=== PATIENT | female | born 1950 | race Caucasian/White ===

== ENCOUNTER 2017-08-07 03:36 | Emergency (ER) | payer MEDICARE, MEDICAID ==
[2017-08-07 04:28] LABS: CKMB 1.6 ng/mL (0-6.6); Troponin I 0.055 ng/mL (< 0.028)
== END 2017-08-07 05:25 | disposition home or self-care (01) ==
LOC: ERS 03:36
DX: I95.9 Hypotension, unspecified (principal); M06.9 Rheumatoid arthritis, unspecified; F41.9 Anxiety disorder, unspecified; F32.9 Major depressive disorder, single episode, unspecified; I10 Essential (primary) hypertension; M19.90 Unspecified osteoarthritis, unspecified site; F17.210 Nicotine dependence, cigarettes, uncomplicated; Z71.6 Tobacco abuse counseling; Z79.899 Other long term (current) drug therapy
CPT/HCPCS: 36415; 93005; 99406

== ENCOUNTER 2018-04-22 17:40 | Emergency (ER) | payer MEDICARE, OTHER ==
[2018-04-22 18:25] LABS: #Eosinphils 0.1 thou/uL (0.0-0.7); #Lymphocytes 0.9 thou/uL (1.20-3.40); #Monocytes 0.3 thou/uL (0.11-0.59); #Neutrophils 3.4 thou/uL (1.40-6.50); %Basophils 0.6 % (0.0-1.0); %Eosinophils 2.7 % (0.0-10.0); %Lymphocytes 18.5 % (21.0-51.0); %Monocytes 7.2 % (0.0-10.0); %Neutrophils 71.1 % (42.0-75.0); Mean Corpuscular HGB CONC 32.9 g/dL (32.0-36.0); Mean Corpuscular Hemoglobin 30.8 pg (27.0-31.0); Mean Corpuscular Volume 93.4 fL (78.0-98.0); Mean Platelet Volume 7.9 fL (7.4-10.4); Platelet Count 174 thou/uL (130-400); RBC Distribution Width 17.2 % (11.5-14.5); Red Blood Cell (RBC) Count 3.56 mill/uL (4.20-5.40); White Blood Cell (WBC) Count 4.7 thou/uL (4.8-10.8)
--- NOTE | 2018-04-22 18:44 | RAD ---
PORTABLE CHEST: 04/22/2018 PROVIDED CLINICAL HISTORY: Cough. COMPARISON: 04/22/2018 at 9:43 a.m. FINDINGS: The cardiac and mediastinal silhouette are unchanged in appearance. No focal consolidation, pleural fluid, or pneumothorax apparent. Remote right humeral fracture redemonstrated. IMPRESSION: No evidence for acute cardiopulmonary process. POS: LULI
[2018-04-22 18:48] LABS: ALT (SGPT) 8 U/L (8-55); AST (SGOT) 15 U/L (5-34); Albumin 3.2 g/dL (3.4-4.8); Alkaline Phosphatase 429 U/L (40-150); Anion Gap 14 mmol/L (10-20); BUN (Urea Nitrogen) 18 mg/dL (9.8-20.1); Bilirubin, Total 0.9 mg/dL (0.2-1.2); Calc. Creatinine Clearance 0 mL/min (70-130); Calcium 8.8 mg/dL (7.8-10.44); Carbon Dioxide 26 mmol/L (23-31); Chloride 105 mmol/L (98-107); Estimated GFR-MDRD 69; Globulin 3.1 g/dL (2.4-3.5); Glucose 97 mg/dL (80-115); Potassium 3.7 mmol/L (3.5-5.1); Protein, Total 6.3 g/dL (6.0-8.3); Sodium 141 mmol/L (136-145)
== END 2018-04-22 18:41 ==
LOC: ERS 17:40
DX: R05 Cough (principal); E16.2 Hypoglycemia, unspecified; I10 Essential (primary) hypertension; F41.9 Anxiety disorder, unspecified; F32.9 Major depressive disorder, single episode, unspecified; F17.210 Nicotine dependence, cigarettes, uncomplicated
CPT/HCPCS: 36415; 71045; 93005

== ENCOUNTER 2018-07-04 08:24 | Inpatient (IN) | payer MEDICARE, OTHER ==
[2018-07-04 08:59] LABS: #Lymphocytes 0.6 thou/uL (1.20-3.40); #Monocytes 0.2 thou/uL (0.11-0.59); #Neutrophils 5.4 thou/uL (1.40-6.50); %Eosinophils 0.3 % (0.0-10.0); %Monocytes 3.5 % (0.0-10.0); %Neutrophils 87.1 % (42.0-75.0); Hemoglobin 13.3 g/dL (12.0-16.0); Mean Corpuscular HGB CONC 31.4 g/dL (32.0-36.0); Mean Corpuscular Hemoglobin 31.6 pg (27.0-31.0); Mean Platelet Volume 8.7 fL (7.4-10.4); Platelet Count 148 thou/uL (130-400); RBC Distribution Width 13.4 % (11.5-14.5); White Blood Cell (WBC) Count 6.2 thou/uL (4.8-10.8)
--- NOTE | 2018-07-04 09:16 | RAD ---
CHEST 1 VIEW: Date: 07/04/18 INDICATION: Weakness. Difficulty breathing. History of COPD. COMPARISON: Prior exam dated 04/22/18. FINDINGS: There is postprocedural change of an aortic valve replacement. There is stable cardiomegaly. There is mild pulmonary vascular congestion and perihilar interstitial air space opacities. No pleural effusi on or pneumothorax evident. No acute osseous abnormality. IMPRESSION: Findings suggesting mild CHF. Perihilar opacities could be related to an atypical infectious process. Recommend correlation. Radiographic follow-up is recommended. POS: ALFREDO
[2018-07-04 09:27] LABS: ALT (SGPT) 25 U/L (8-55); AST (SGOT) 35 U/L (5-34); Albumin 4.1 g/dL (3.4-4.8); Alkaline Phosphatase 778 U/L (40-150); Anion Gap 16 mmol/L (10-20); BUN (Urea Nitrogen) 21 mg/dL (9.8-20.1); Bilirubin, Total 0.7 mg/dL (0.2-1.2); Calc. Creatinine Clearance 0 mL/min (70-130); Calcium 9.4 mg/dL (7.8-10.44); Carbon Dioxide 29 mmol/L (23-31); Chloride 102 mmol/L (98-107); Estimated GFR-MDRD 72; Globulin 3.9 g/dL (2.4-3.5); Glucose 117 mg/dL (80-115); Potassium 3.9 mmol/L (3.5-5.1); Sodium 143 mmol/L (136-145)
[2018-07-04 09:29] LABS: Bilirubin Negative (Negative); Blood, Urine Negative (Negative); Clarity CLEAR (Clear); Glucose, Urine (Dipstick) Negative (Negative); Leukocyte Negative (Negative); Nitrite Negative (Negative); Protein, Urine (Dipstick) 30 mg/dL (Neg-Trace); Specific Gravity, Urine 1.017 (1.002-1.036); pH, Urine 5.5 (5.0-9.0)
[2018-07-04 09:32] LABS: Bacteria/HPF None Seen HPF (None Seen); Hyaline Casts/LPF 4-6 HYALINE CAST LPF (0-3 Hyaline); Pathc Cast-AUWi Flag 1.08 (0-2.49); RBC/HPF 0-3 HPF (0-3); Squamous Epithelial 0-3 HPF (0-3); WBC/HPF 0-3 HPF (0-3)
[2018-07-04] MEDS ORDERED: Acetaminophen 325 MG Suppository ONE (09:46)
[2018-07-04] MEDS ORDERED: Piperacillin/Tazobactam 3.375 GM VIAL ONE (10:08)
--- NOTE | 2018-07-04 10:28 | PDOC.FPRHP ---
- History of Present Illness Chief Complaint: COPD/AMS History of Present Illness: 67 yo female presents for evaluation of AMS. Patient is awake and alert at this time. Patient is A&O x3, but requires multiple attempts at questioning. Patient was sent from [facility] due to dyspnea and AMS. I personally spoke with her nurse at [facility]. She stated that yesterday she began having a fever and cough. She was able to ambulate and "smoke" every 2 hours all day long. Patient did not want to go to the ED yesterday. However, this morning she was on 2-3L O2 which is above her baseline of no supplemental O2. Patient's PCP contacted and he offered limited history in addition. He states that she recently asked for additional benadryl on top of her chronic pain medications. He states that she has severe COPD at baseline. No other history is able to be obtained at this time. ED Course: Duoneb Vanc Zosyn Levaquin Tylenol - Allergies/Adverse Reactions Allergies Allergy/AdvReac Type Severity Reaction Status Date / Time Sulfa (Sulfonamide Allergy Verified 09/23/16 13:03 Antibiotics) - Home Medications Medication Instructions Recorded Confirmed Type tiZANidine HCl [Zanaflex] 4 mg PO BID 04/12/16 07/04/18 History Albuterol Sulfate [Proair 1 inh Q4H 11/30/17 07/04/18 History Respiclick] Ipratropium/Albuterol Sulfate 1 inh Q4H PRN 11/30/17 07/04/18 History [DuoNeb] Lisinopril 10 mg DAILY 11/30/17 07/04/18 History Pregabalin [Lyrica] 1 cap TID 11/30/17 07/04/18 History Ranitidine HCl 1 tab DAILY 11/30/17 07/04/18 History Tiotropium [Spiriva Handihaler] 1 inh DAILY 11/30/17 07/04/18 History traZODone HCl [Trazodone HCl] 1 tab HS 11/30/17 07/04/18 History Acetaminophen W/ Codeine 1 tab PO Q8H PRN tab 12/03/17 07/04/18 Rx [Acetaminophen/Codeine #3] Escitalopram Oxalate [Lexapro] 20 mg DAILY 07/04/18 07/04/18 History Comments: Will need to be completed when NH contacted. - History PMHx: Chronic Back Pain, HTN, Rheumatoid Arthritis, COPD, Anxiety Depression PSHx: Left knee Arthroscopic, 2014 Heart Valve Replacement, CABG x1 vessel, Hysterectomy FHx: Non-Contributory Social: Current smoker at least 30 pack year smoking history, Denies alcohol or drug use. - Review of Systems ROS unobtainable: due to mental status (Questionable historian) General: reports: fever/chills Eyes: denies: eye pain, vision changes ENT: denies: nasal congestion, rhinorrhea Respiratory: reports: cough. denies: shortness of breath Cardiovascular: denies: chest pain, palpitation Gastrointestinal: denies: nausea, vomiting, diarrhea Genitourinary: denies: incontinence, dysuria Skin: denies: rashes, lesions Musculoskeletal: reports: arthritis/arthralgias. denies: pain, tenderness Neurological: denies: numbness, syncope Psychological: reports: anxiety, depression - Vital signs BP: 147/71 HR: 112 RR: 21 Tmax: 102.2 Pox: 100% on 3L Wt: 45.4 kg - Physical Exam Constitutional: NAD -Constitutional: Awake, Alert, and Oriented x2-3 with multiple inquiries HEENT: normocephalic and atraumatic, PERRLA, grossly normal vision, grossly normal hearing, normal nasal mucosa -HEENT: Dry mucous membranes Neck: supple, trachea midline Heart: RRR, normal S1/S2 Lungs: no retractions -Lungs: Tachypnea, Rales and Rhonchi bilaterally. Wheezing present as well. Abdomen: soft, non-tender, bowel sounds present, no masses/distention -Musculoskeletal: Cachetic Neurological: no focal deficit, CN II-XII intact, normal sensation Skin: no rash/lesions, capillary refill <2 seconds Heme/Lymphatic: no unusual bruising or bleeding Psychiatric: normal mood and affect, good judgment and insight, intact recent and remote memory FMR H&P: Results - Labs Result Diagrams: 07/04/18 08:46 07/04/18 08:46 Lab results: WBC 6.2 thou/uL (4.8-10.8) 07/04/18 08:46 Hgb 13.3 g/dL (12.0-16.0) 07/04/18 08:46 Hct 42.2 % (36.0-47.0) 07/04/18 08:46 MCV 101.0 fL (78.0-98.0) H 07/04/18 08:46 Plt Count 148 thou/uL (130-400) 07/04/18 08:46 Neutrophils % 87.1 % (42.0-75.0) H 07/04/18 08:46 Sodium 143 mmol/L (136-145) 07/04/18 08:46 Potassium 3.9 mmol/L (3.5-5.1) 07/04/18 08:46 Chloride 102 mmol/L (98-107) 07/04/18 08:46 Carbon Dioxide 29 mmol/L (23-31) 07/04/18 08:46 BUN 21 mg/dL (9.8-20.1) H 07/04/18 08:46 Creatinine 0.79 mg/dL (0.6-1.1) 07/04/18 08:46 Glucose 117 mg/dL (80-115) H 07/04/18 08:46 Lactic Acid 1.0 mmol/L (0.5-2.2) 07/04/18 08:46 Calcium 9.4 mg/dL (7.8-10.44) 07/04/18 08:46 Total Bilirubin 0.7 mg/dL (0.2-1.2) 07/04/18 08:46 AST 35 U/L (5-34) H 07/04/18 08:46 ALT 25 U/L (8-55) 07/04/18 08:46 Alkaline Phosphatase 778 U/L (40-150) H 07/04/18 08:46 Serum Total Protein 8.0 g/dL (6.0-8.3) 07/04/18 08:46 Albumin 4.1 g/dL (3.4-4.8) 07/04/18 08:46 Urine Ketones 15 mg/dL (Negative) H 07/04/18 09:13 Urine Blood Negative (Negative) 07/04/18 09:13 Urine Nitrite Negative (Negative) 07/04/18 09:13 Ur Leukocyte Esterase Negative (Negative) 07/04/18 09:13 Urine RBC 0-3 HPF (0-3) 03/21/19 09:13 Urine WBC 0-3 HPF (0-3) 07/04/18 09:13 Ur Squamous Epith Cells 0-3 HPF (0-3) 07/04/18 09:13 Urine Bacteria None Seen HPF (None Seen) 07/04/18 09:13 - EKG Interpretation EK lead EKG shows, sinus tachycardia, Rate (beats per minute): 113, with no ectopics, Interpretation:, Conduction normal, [place] normal, Other findings include:, Possible LAE. Nonspecific ST & T wave abnormality. - Radiology Interpretation Chest x-ray Status: report reviewed by me (Findings suggesting mild CHF. Perihilar opacities could be related to an atypical infectious process. Recommend correlation. Radiographic follow-up is recommended.) FMR H&P: A/P - Problem List (1) Acute respiratory failure with hypoxia and hypercapnia Current Visit: Yes Status: Acute Code(s): J96.01 - ACUTE RESPIRATORY FAILURE WITH HYPOXIA; J96.02 - ACUTE RESPIRATORY FAILURE WITH HYPERCAPNIA (2) Encephalopathy Current Visit: Yes Status: Acute Code(s): G93.40 - ENCEPHALOPATHY, UNSPECIFIED (3) Congestive heart failure Current Visit: Yes Status: Chronic Code(s): I50.9 - HEART FAILURE, UNSPECIFIED (4) COPD (chronic obstructive pulmonary disease) Current Visit: Yes Status: Acute (5) Bipolar disorder Current Visit: No Status: Chronic Code(s): F31.9 - BIPOLAR DISORDER, UNSPECIFIED Qualifiers: Most recent bipolar episode type: most recent episode unspecified type Comment: stable (6) History of coronary artery bypass graft x 1 Current Visit: No Status: Chronic Code(s): Z95.1 - PRESENCE OF AORTOCORONARY BYPASS GRAFT Comment: s/p CABG 08/28 (7) HTN (hypertension) Current Visit: No Status: Chronic Code(s): I10 - ESSENTIAL (PRIMARY) HYPERTENSION Qualifiers: Hypertension type: essential hypertension Qualified Code(s): I10 - Essential (primary) hypertension Comment: BP better - Plan 1. Encephalopathy with Acute Hypoxic Respiratory failure - Likely secondary to COPD vs CHF exacerbation 2. CHF exacerbation - XR evidence and elevated BNP - Consider IV lasix - Strict I&Os - Daily weights - Will place andjuar 2. COPD Exacerbation - Supplemental O2 as needed through BIPAP, will send to IMCU - Influenza Negative - Duonebs - ABG shows ph 7.24, PCO2 72, PO2 85, HCO3 30 - Continue antibiotic coverage 3. Hypertension - Hold home medications for now 4. Bipolar disorder - Continue home medications. Patient was seen and evaluated with Dr. Claude Malone. CODE STATUS: FULL CODE Patient has one son that currently lives internationally. Attempted to call multiple numbers multiple times. Numbers included [phone], [phone], and [phone]. Patient has OOH DNR from [facility] facility and verbally states she does not want to be intubated. However, due to current mental status will make patient full code until further information is gathered. PCP: Dr. Harding Disposition: Stable, will continue current plan of care. Addendum - Attending - Attending Attestation Date/Time: 07/04/18 [id number] I personally evaluated the patient and discussed the management with Dr. Saleh. I agree with the History, Examination, Assessment and Plan documented above with any addition or exceptions noted below. Patient with history of COPD living at [facility] coming in with fever, increased O2 requirement, and confusion. She has limited answers to my questioning other than reporting feeling bad over the last few weeks. She reports difficulty breathing during this time but otherwise denies complaints. Remainder of history obtained from PCP and NH (see Dr. Saleh HPI). On exam, she is dry appearing, having mild respiratory distress. She is A&Ox2.5, has some difficulty with date but knew it was early spring and thought it was July. She is also aware of where she was prior to presenting to the ER. She is mildly tachycardic. O2 sats mid 90s. Her lung exam shows minimal air entry with diffuse rhonchi and wheezes b/l. No cyanosis or edema in the extremities. Labs show elevated BNP, normal PCT. CXR show possible volume overload. Patient will be admitted to the IMCU for acute hypoxic and hypercapnic respiratory failure with suspected sepsis 2/2 COPD exacerbation or pneumonia and possible CHF with volume overload. Will complete workup that was started by ER. Start on Bipap. Continue respiratory pathogen targeted abx and cultures. She does appear dry on exam, but CHF is certainly also a concern. Due to lack of extravascular fluid accumulations signs, I suggest volume resuscitation and monitor closely. CC/ Pulm consult. Continue nebs and steriods as needed. 45 minutes critical care involved in the management and stabilization of patient.
[2018-07-04 11:45] LABS: Actual Bicarbonate (HCO3a) 30.1 mEq/L (22-28); Analyzer IN Cardio ER; Base Excess (BEa) 1.1 mEq/L (-2.0 to +3.0); Calcium, Ionized 1.19 mmol/L (1.12-1.30); Carboxyhemoglobin (COHb) 1.7 gm% (0.0-3.0); Hemoglobin (Hb) 12.2 g/dL (12.0-16.0); O2 Tension (PaO2) 84.7 mmHg (> 80.0); Potassium - ABG Lab 3.32 mmol/L (3.70-5.30)
[2018-07-04] MEDS ORDERED: Vancomycin HCl 750 MG in Sodium Chloride 0.9% 250 ML 250 ML IVPB SCH (12:15)
[2018-07-04 13:59] LABS: CO2 Tension 71.9 mmHg (35.0-45.0); pH, Arterial 7.24 (7.35-7.45)
[2018-07-04] MEDS ORDERED: Lactated Ringer's 500 ML IV SCH ×2 (15:15→16:30)
[2018-07-04 16:28] VITALS: BMI 21.2
[2018-07-04] MEDS ORDERED: methylPREDNISolone Sod Succ 40 MG VIAL IVP SCH (18:00)
[2018-07-04] MEDS: methylPREDNISolone Sod Succ 40 MG VIAL IVP SCH (18:19)
[2018-07-04] MEDS: Sodium Chloride 0.45% 1,000 ML IV SCH (18:26)
[2018-07-04] MEDS: Acetaminophen 325 MG TAB PO PRN (23:47)
[2018-07-05] MEDS: methylPREDNISolone Sod Succ 40 MG VIAL IVP SCH ×5 (00:32→23:10)
--- NOTE | 2018-07-05 00:42 | CON ---
DATE OF CONSULTATION: HISTORY OF PRESENT ILLNESS: Ms. Funk is a 67-year-old female who only recently moved in to [facility]. Dr. Harding just recently made contact with her. She reportedly has a history of advanced chronic obstructive pulmonary disease. She does have a 1-year-old [id number]-vvrshnih sx-jlw-qfjwqvrkfge status. Apparently, she became a little more somnolent. Dr. Harding tells me that they were trying to avoid using opiates as she was constantly asking for Tylenol No.3. She was given low doses of Benadryl, which is the impression that perhaps this was making her more somnolent. She continues to smoke. PAST MEDICAL HISTORY: 1. Remarkable for chronic pain for which she takes Tylenol No. 3 until recently. 2. History of rheumatoid arthritis. 3. History of hypertension. 4. History of advanced obstructive lung disease. 5. History of knee surgery. 6. History of heart valve replacement with bypass and hysterectomy. FAMILY HISTORY: Negative for lung disease in early age. SOCIAL HISTORY: She continues to smoke. She is not a drinker. REVIEW OF SYSTEMS: A 10-point review of systems really cannot be reliably obtained. She thinks she is in [place]. PHYSICAL EXAMINATION: VITAL SIGNS: Heart rate is 86, respiratory rate is in the 20s, oximetry is 93% on 1 L cannula. HEENT: Pupils are equal. Her mouth is dry. NECK: Supple. No lymphadenopathy. LUNGS: Remarkable for distant breath sounds with slightly prolonged expiratory phase. HEART: Regular rhythm, S1 and S2 are normal. ABDOMEN: Soft and nontender. EXTREMITIES: Without clubbing, cyanosis, or edema. NEUROLOGIC: Grossly nonfocal. She appears quite weak. LABORATORY DATA: White count 6.2, hemoglobin 13.3, platelets 148. PH 7.24, pCO2 of 71, pO2 of 84. Sodium 143, potassium 3.9, chloride 102, bicarb 29, BUN 21, creatinine 0.79. IMPRESSION: 1. Chronic obstructive pulmonary disease exacerbation. 2. Confusion, perhaps aggravated by Benadryl. PLAN: Steroids, nebulizer treatments, close observation. O2 sats should be between 88 and 92. There are no signs of respiratory muscle fatigue at this point in time, so there is no real reason to keep her on BiPAP. TIME SPENT: This is a 50-minute consult, 50% of the time spent on the unit coordinating care. Job ID: [id number]
[2018-07-05 05:26] LABS: #Lymphocytes 0.4 thou/uL (1.20-3.40); #Neutrophils 3.5 thou/uL (1.40-6.50); %Eosinophils 0.2 % (0.0-10.0); %Lymphocytes 11.2 % (21.0-51.0); %Monocytes 0.9 % (0.0-10.0); %Neutrophils 87.7 % (42.0-75.0); Hemoglobin 11.6 g/dL (12.0-16.0); Mean Corpuscular HGB CONC 32.3 g/dL (32.0-36.0); Mean Corpuscular Hemoglobin 31.9 pg (27.0-31.0); Mean Corpuscular Volume 98.8 fL (78.0-98.0); Mean Platelet Volume 9.1 fL (7.4-10.4); Platelet Count 135 thou/uL (130-400); RBC Distribution Width 13.1 % (11.5-14.5); Red Blood Cell (RBC) Count 3.63 mill/uL (4.20-5.40); White Blood Cell (WBC) Count 3.9 thou/uL (4.8-10.8)
--- NOTE | 2018-07-05 05:58 | PDOC.FM ---
- Subjective Subjective: 67 yo female seen at bedside this AM. Spoke with patient's PCP and there is concern for overuse of drugs. Patient continues to complain of intense back pain and a headache. She notes that she needs better pain control. Patient is much more alert and oriented today and is quick to respond. No other complaints. - Objective Vital Signs & Weight: Vital Signs (12 hours) Temp Pulse Resp Pulse Ox 07/05/18 04:00 99.3 F 07/05/18 02:20 82 20 94 L 07/05/18 00:00 98.6 F 07/04/18 22:21 82 21 H 94 L 07/04/18 20:00 93 L 07/04/18 19:34 99.6 F 07/04/18 18:20 86 23 H 93 L Weight Weight 47.6 kg Most Recent Monitor Data Heart Rate from ECG 82 NIBP 131/77 NIBP BP-Mean 95 Respiration from ECG 19 SpO2 93 I&O: 07/03/18 07/04/18 07/05/18 06:59 06:59 06:59 Output Total 300 Balance -300 Result Diagrams: 07/05/18 03:54 07/04/18 08:46 Phys Exam - Physical Examination Constitutional: NAD HEENT: moist MMs Neck: no nodes Rhonchi, wheezes diffusely Cardiovascular: RRR, no significant murmur Gastrointestinal: soft, non-tender, no distention, positive bowel sounds Musculoskeletal: no edema, pulses present Neurological: non-focal, normal sensation, moves all 4 limbs Lymphatic: no nodes Psychiatric: A&O x 3 Skin: no rash Dx/Plan (1) Acute respiratory failure with hypoxia and hypercapnia Code(s): J96.01 - ACUTE RESPIRATORY FAILURE WITH HYPOXIA; J96.02 - ACUTE RESPIRATORY FAILURE WITH HYPERCAPNIA Status: Acute (2) Encephalopathy Code(s): G93.40 - ENCEPHALOPATHY, UNSPECIFIED Status: Resolved (3) Congestive heart failure Code(s): I50.9 - HEART FAILURE, UNSPECIFIED Status: Chronic (4) COPD (chronic obstructive pulmonary disease) Status: Chronic (5) Bipolar disorder Code(s): F31.9 - BIPOLAR DISORDER, UNSPECIFIED Status: Chronic Qualifiers: Most recent bipolar episode type: most recent episode unspecified type (6) History of coronary artery bypass graft x 1 Code(s): Z95.1 - PRESENCE OF AORTOCORONARY BYPASS GRAFT Status: Chronic (7) HTN (hypertension) Code(s): I10 - ESSENTIAL (PRIMARY) HYPERTENSION Status: Chronic Qualifiers: Hypertension type: essential hypertension Qualified Code(s): I10 - Essential (primary) hypertension (8) Misuse of drugs Code(s): F19.99 - OTH PSYCHOACTIVE SUBSTANCE USE, UNSP W UNSP DISORDER Status : Acute - Plan Plan: 1. Encephalopathy with Acute Hypoxic Respiratory failure - Resolved - Likely secondary to COPD vs CHF exacerbation - After BIPAP therapy yesterday, AMS resolved - AM ABG much improved - Blood cultures pending 2. CHF exacerbation - XR evidence and elevated BNP - Consider IV lasix - Strict I&Os - Daily weights - Remove andujar 2. COPD Exacerbation - Supplemental O2 as needed through BIPAP initially - Much improved - Influenza Negative - Duonebs - ABG on admission shows ph 7.24, PCO2 72, PO2 85, HCO3 30 - repeat ABG pending this AM - Continue antibiotic coverage 3. Hypertension - Hold home medications for now 4. Bipolar disorder - Continue home medications. 5. Misuse of drugs - Continually requests more pain medications - Will start celebrex for relief - Patient will need outpatient follow up Disposition: Stable, will transfer to medical floor with possibility to transfer to [facility] facility. Addendum - Attending - Attending Attestation Date/Time: 07/05/18 7438 I personally evaluated the patient and discussed the management with Dr. Saleh I agree with the History, Examination, Assessment and Plan documented above with any addition or exceptions noted below. Encepalopathy-presumed from benadryl and hypersomnolence Acute hypercapneic resp failure- bipap for short time yesterday. Now ABG much improved. Severe COPD- mild hypoxia- wean o2 to keep sats >88-90% May transition to [facility].
[2018-07-05] MEDS: Acetaminophen 325 MG TAB PO PRN (06:35)
[2018-07-05] MEDS: Sodium Chloride 0.45% 1,000 ML IV SCH ×2 (06:35→20:19)
[2018-07-05 06:53] LABS: Actual Bicarbonate (HCO3a) 26.4 mEq/L (22-28); CO2 Tension 45.2 mmHg (35.0-45.0); Calcium, Ionized 1.16 mmol/L (1.12-1.30); Carboxyhemoglobin (COHb) 1.5 gm% (0.0-3.0); Hemoglobin (Hb) 11.9 g/dL (12.0-16.0); O2 Tension (PaO2) 60.9 mmHg (> 80.0); pH, Arterial 7.38 (7.35-7.45)
[2018-07-05 06:54] LABS: Puncture Site RBA
[2018-07-05] MEDS: CeleCOXIB 100 MG CAP PO SCH (09:38)
[2018-07-05] MEDS: Enoxaparin Sodium 30 MG/0.3 ML SYRINGE SC SCH (09:39)
--- NOTE | 2018-07-05 10:26 | PRG ---
DATE OF SERVICE: 07/05/2018 SUBJECTIVE: Ayleen Funk made through the night. She had another blood gas done this morning that shows that the hypoventilation has resolved. Her pH is 7.38, CO2 of 45, and PO2 of 60. OBJECTIVE: LUNGS: Distant. HEART: Regular rhythm. ABDOMEN: Soft. LABORATORY DATA: White count 3.9, hemoglobin 11.6, and platelets 135. Electrolytes are unremarkable. IMPRESSION: 1. Hypoventilation perhaps related to medication. 2. Elevated liver enzymes. 3. Elevated BNP, which certainly could be just from her right ventricle given her advanced chronic obstructive pulmonary disease. 4. Advanced chronic obstructive pulmonary disease. 5. Cachexia, malnutrition, and deconditioning. She had been transferred out of the intermediate care unit and gradually transitioned to p.o. medications and back to the snf perhaps Sunday or Sunday. Job ID: [id number]
[2018-07-05] MEDS ORDERED: Escitalopram Oxalate 20 mg Tablet PO SCH (13:00)
[2018-07-05] MEDS ORDERED: Famotidine 20 MG TAB PO SCH (13:00)
[2018-07-05] MEDS ORDERED: tiZANidine HCl 4 MG TAB PO SCH (13:15)
[2018-07-05] MEDS: PROVENTIL INHALER 6.7 G (200 INHALATIONS) INH SCH ×3 (15:00→22:18)
[2018-07-05] MEDS: Pregabalin 50 MG CAP PO SCH ×2 (17:03→20:17)
[2018-07-05] MEDS: Ondansetron ODT 4 MG TAB PO PRN ×2 (17:07→23:10)
[2018-07-05] MEDS ORDERED: Ipratropium Bromide 2.5 ml Neb NEB SCH (19:00)
[2018-07-05] MEDS: traZODone HCl 50 MG TAB PO SCH (20:19)
[2018-07-05] MEDS: tiZANidine HCl 4 MG TAB PO SCH (20:20)
[2018-07-06] MEDS: PROVENTIL INHALER 6.7 G (200 INHALATIONS) INH SCH ×6 (02:56→22:06)
[2018-07-06] MEDS: methylPREDNISolone Sod Succ 40 MG VIAL IVP SCH (05:42)
--- NOTE | 2018-07-06 06:25 | PDOC.FM ---
- Subjective Subjective: Pt denies feeling short of breath or any sx to me, however asked attending for more pain medication. Otherwise, no complaints. - Objective MAR Reviewed: Yes Vital Signs & Weight: Vital Signs (12 hours) Temp Pulse Resp BP Pulse Ox 07/06/18 04:00 97.8 F 92 16 120/69 90 L 07/06/18 02:57 84 16 07/06/18 00:00 97.8 F 71 16 91/55 L 90 L 07/05/18 22:19 80 16 07/05/18 20:20 91 L 07/05/18 19:41 98.2 F 74 16 165/68 H 91 L 07/05/18 19:18 84 20 Weight Weight 47.6 kg Most Recent Monitor Data Heart Rate from ECG 72 NIBP 171/78 NIBP BP-Mean 109 Respiration from ECG 19 SpO2 93 I&O: 07/04/18 07/05/18 07/06/18 06:59 06:59 06:59 Intake Total 990 Output Total 775 Balance 215 Result Diagrams: 07/05/18 03:54 07/04/18 08:46 Phys Exam - Physical Examination Constitutional: NAD Respiratory: wheezing present (throughout lung martino) crackles throughout lung martino Cardiovascular: RRR systolic murmur Gastrointestinal: soft, non-tender, no distention Musculoskeletal: no edema, pulses present Psychiatric: A&O x 3 Skin: no rash, cap refill <2 seconds Dx/Plan (1) Acute respiratory failure with hypoxia and hypercapnia Code(s): J96.01 - ACUTE RESPIRATORY FAILURE WITH HYPOXIA; J96.02 - ACUTE RESPIRATORY FAILURE WITH HYPERCAPNIA Status: Acute (2) COPD exacerbation Code(s): J44.1 - CHRONIC OBSTRUCTIVE PULMONARY DISEASE W (ACUTE) EXACERBATION Status: Acute (3) Acute exacerbation of CHF (congestive heart failure) Code(s): I50.9 - HEART FAILURE, UNSPECIFIED Status: Acute (4) Aortic stenosis Code(s): I35.0 - NONRHEUMATIC AORTIC (VALVE) STENOSIS Status: Chronic (5) Misuse of drugs Code(s): F19.99 - OTH PSYCHOACTIVE SUBSTANCE USE, UNSP W UNSP DISORDER Status : Acute (6) Encephalopathy Code(s): G93.40 - ENCEPHALOPATHY, UNSPECIFIED Status: Resolved (7) Bipolar disorder Code(s): F31.9 - BIPOLAR DISORDER, UNSPECIFIED Status: Chronic Qualifiers: Most recent bipolar episode type: most recent episode unspecified type (8) CAD (coronary artery disease) Code(s): I25.10 - ATHSCL HEART DISEASE OF [place] CORONARY ARTERY W/O ANG PCTRS Status: Chronic Qualifiers: Coronary Disease-Associated Artery/Lesion type: [place] artery [place] vs. transplanted heart: [place] heart Associated angina: without angina Qualified Code(s): I25.10 - Atherosclerotic heart disease of [place] coronary artery without angina pectoris (9) HTN (hypertension) Code(s): I10 - ESSENTIAL (PRIMARY) HYPERTENSION Status: Chronic Qualifiers: Hypertension type: essential hypertension Qualified Code(s): I10 - Essential (primary) hypertension - Plan Plan: 67 yo f admitted for encephalopathy though to be d/t acute hypoxic hypercapnic respiratory failure 2/2 COPD vs CHF exacerbation. 1. Encephalopathy 2/2 Acute Hypoxic Hypercapnic Respiratory failure - Resolved after bipap - Likely secondary to COPD vs CHF exacerbation - Blood cultures NGTD 2. CHF exacerbation - XR evidence and elevated BNP - Strict I&Os, Net +255 yesterday, consider IV Lasix 20mg for net goal of -1L - Daily weights 3. COPD Exacerbation - Influenza Negative - Duonebs q3h cora, and prn q3h, albuterol inh 1 puff cora q4h - Transition IV Levaquin and methylpred to PO today 3. Hypertension - Continue home meds 4. Bipolar disorder - Continue home medications. 5. Misuse of pain medications - celebrex for relief - Patient will need outpatient follow up Disposition: Stable, possibility to transfer to [facility] tomorrow Addendum - Attending Addendum - Attending - Attending Attestation Date/Time: 07/06/18 4635 I personally evaluated the patient and discussed the management with Dr. Donis I agree with the History, Examination, Assessment and Plan documented above with any addition or exceptions noted below. COPD exac and hypoventilation- transition steroid and abx to oral today. Wean O2 to sats >90% CHF without exaccerbation- d/c IVF- patient declined lasix to [facility] tomorrow or Sunday am.
[2018-07-06] MEDS: CeleCOXIB 100 MG CAP PO SCH (08:27)
[2018-07-06] MEDS: tiZANidine HCl 4 MG TAB PO SCH ×2 (08:27→20:25)
[2018-07-06] MEDS: Escitalopram Oxalate 20 mg Tablet PO SCH (08:28)
[2018-07-06] MEDS: Pregabalin 50 MG CAP PO SCH ×3 (08:28→20:25)
[2018-07-06] MEDS: Enoxaparin Sodium 30 MG/0.3 ML SYRINGE SC SCH (08:29)
[2018-07-06] MEDS: Famotidine 20 MG TAB PO SCH (08:29)
[2018-07-06] MEDS: Lisinopril 10 MG TAB PO SCH (08:29)
--- NOTE | 2018-07-06 13:43 | PRG ---
DATE OF SERVICE: 07/06/2018 SUBJECTIVE: She wakes up. She is awake, alert and has no complaints and is in no distress. OBJECTIVE: VITAL SIGNS: Temperature is 98.1, pulse 72, respirations 24, O2 saturation 94% on 1 L, blood pressure 135/71. GENERAL: She is frail, but in no distress. HEENT: Unremarkable. NECK: No JVD. CHEST: Clear, but distant breath sounds. CARDIAC: S1, S2. Regular. ABDOMEN: Soft. EXTREMITIES: No edema. ASSESSMENT: 1. Hypoventilation. 2. Chronic obstructive pulmonary disease. 3. Cachexia. PLAN: The patient seems stable for transfer back to her nursing facility. I agree with the antibiotics, nebulization treatment and steroids. Job ID: [id number]
[2018-07-06] MEDS: Acetaminophen 325 MG TAB PO PRN ×3 (14:14→23:46)
--- NOTE | 2018-07-06 17:35 | EKG ---
Test Reason : SEPTIC Blood Pressure : / mmHG Vent. Rate : 113 BPM Atrial Rate : 113 BPM P-R Int : 196 ms QRS Dur : 090 ms QT Int : 332 ms P-R-T Axes : 034 -01 077 degrees QTc Int : 455 ms Sinus tachycardia Possible Left atrial enlargement Nonspecific ST and T wave abnormality Abnormal ECG Confirmed by JEFF BRADY, YESSICA ([id number]), assignment editor CALVIN LIZARRAGA ([id number]) on 07/06/2018 5:35:38 PM Referred By: Confirmed By:YESSICA AGUILAR MD
[2018-07-06] MEDS: traZODone HCl 50 MG TAB PO SCH (20:25)
[2018-07-07] MEDS: PROVENTIL INHALER 6.7 G (200 INHALATIONS) INH SCH ×6 (02:26→19:57)
--- NOTE | 2018-07-07 07:50 | PDOC.FM ---
- Subjective Subjective: Asked to go back to the [facility] with more tylenol 3. Denies shortness of breath. Weaned oxygen in the room to .5L. - Objective MAR Reviewed: Yes Vital Signs & Weight: Vital Signs (12 hours) Temp Pulse Resp BP Pulse Ox 07/07/18 07:40 97.7 F 68 18 149/69 H 92 L 07/07/18 04:00 97.6 F 61 16 110/64 99 07/07/18 00:27 98.3 F 70 16 117/64 91 L 07/06/18 22:05 72 16 07/06/18 20:05 100 07/06/18 20:00 98.2 F 71 16 165/78 H 100 Weight Weight 47.6 kg Most Recent Monitor Data Heart Rate from ECG 72 NIBP 171/78 NIBP BP-Mean 109 Respiration from ECG 19 SpO2 93 I&O: 07/06/18 07/07/18 07/08/18 06:59 06:59 06:59 Intake Total 425 960 Output Total 375 Balance 50 960 Result Diagrams: 07/05/18 03:54 07/04/18 08:46 Phys Exam - Physical Examination Constitutional: NAD wheezing and crackles diffusely Cardiovascular: RRR systolic murmur Gastrointestinal: soft, non-tender Psychiatric: A&O x 3 Dx/Plan (1) Acute respiratory failure with hypoxia and hypercapnia Code(s): J96.01 - ACUTE RESPIRATORY FAILURE WITH HYPOXIA; J96.02 - ACUTE RESPIRATORY FAILURE WITH HYPERCAPNIA Status: Acute (2) COPD exacerbation Code(s): J44.1 - CHRONIC OBSTRUCTIVE PULMONARY DISEASE W (ACUTE) EXACERBATION Status: Acute (3) Acute exacerbation of CHF (congestive heart failure) Code(s): I50.9 - HEART FAILURE, UNSPECIFIED Status: Acute (4) Aortic stenosis Code(s): I35.0 - NONRHEUMATIC AORTIC (VALVE) STENOSIS Status: Chronic (5) Misuse of drugs Code(s): F19.99 - OTH PSYCHOACTIVE SUBSTANCE USE, UNSP W UNSP DISORDER Status : Acute (6) Encephalopathy Code(s): G93.40 - ENCEPHALOPATHY, UNSPECIFIED Status: Resolved (7) Bipolar disorder Code(s): F31.9 - BIPOLAR DISORDER, UNSPECIFIED Status: Chronic Qualifiers: Most recent bipolar episode type: most recent episode unspecified type (8) CAD (coronary artery disease) Code(s): I25.10 - ATHSCL HEART DISEASE OF [place] CORONARY ARTERY W/O ANG PCTRS Status: Chronic Qualifiers: Coronary Disease-Associated Artery/Lesion type: [place] artery [place] vs. transplanted heart: [place] heart Associated angina: without angina Qualified Code(s): I25.10 - Atherosclerotic heart disease of [place] coronary artery without angina pectoris (9) HTN (hypertension) Code(s): I10 - ESSENTIAL (PRIMARY) HYPERTENSION Status: Chronic Qualifiers: Hypertension type: essential hypertension Qualified Code(s): I10 - Essential (primary) hypertension - Plan Plan: 67 yo f admitted for encephalopathy though to be d/t acute hypoxic hypercapnic respiratory failure 2/2 COPD vs CHF exacerbation. 1. Encephalopathy 2/2 Acute Hypoxic Hypercapnic Respiratory failure - Resolved after bipap - Likely secondary to COPD vs CHF exacerbation - Blood cultures NGTD - walking trial 2. CHF exacerbation - XR evidence and elevated BNP - Strict I&Os - Daily weights - pt refused lasix 20mg IV yesterday and today despite net +950ml today and counseling on why it would be a good idea 3. COPD Exacerbation - Influenza Negative - Duonebs q3h cora, and prn q3h, albuterol inh 1 puff cora q4h - Continue po levaquin and po prednisone 3. Hypertension - Continue home meds 4. Bipolar disorder - Continue home medications. 5. Misuse of pain medications - celebrex for relief - asking for more T3, discussed that this med is sedating and contributed to her encephalopathy and for this reason will not be going on this medication - Patient will need outpatient follow up Disposition: Stable, possibility to transfer to [facility] today Addendum - Attending - Attending Attestation Date/Time: 07/07/18 9314 I personally evaluated the patient and discussed the management with Dr. Donis I agree with the History, Examination, Assessment and Plan documented above with any addition or exceptions noted below. COPD exac with hypoventilation and hypercapnia- appears to be at baseline. O2 sat 94% on RA while I was in her room. CHF- positive fluid balance. Patient adamantly refuses lasix dose. No hypoxia today. Stable for transfer back to [facility].
[2018-07-07] MEDS: tiZANidine HCl 4 MG TAB PO SCH ×2 (08:46→20:31)
[2018-07-07] MEDS: Escitalopram Oxalate 20 mg Tablet PO SCH (08:47)
[2018-07-07] MEDS: CeleCOXIB 100 MG CAP PO SCH (08:47)
[2018-07-07] MEDS: predniSONE 20 MG TAB PO SCH (08:47)
[2018-07-07] MEDS: Pregabalin 50 MG CAP PO SCH ×3 (08:48→20:30)
[2018-07-07] MEDS: Famotidine 20 MG TAB PO SCH (08:51)
[2018-07-07] MEDS: Enoxaparin Sodium 30 MG/0.3 ML SYRINGE SC SCH (08:52)
[2018-07-07] MEDS: Lisinopril 10 MG TAB PO SCH (08:53)
[2018-07-07] MEDS: Acetaminophen 325 MG TAB PO PRN ×3 (12:37→22:52)
--- NOTE | 2018-07-07 14:37 | PRG ---
DATE OF SERVICE: 07/07/2018 SUBJECTIVE: The patient continues to wait shelter placement. OBJECTIVE: VITAL SIGNS: Temperature 97.7, pulse , respirations 24, and blood pressure 179/75. HEENT: Unremarkable. NECK: No JVD. LUNGS: Poor air movement bilaterally. CARDIAC: S1 and S2. Regular. ABDOMEN: Soft. EXTREMITIES: No edema. ASSESSMENT: 1. Hypoventilation. 2. Chronic obstructive pulmonary disease. 3. Cachexia. PLAN: Continue nebulization treatments and oxygen. Job ID: [id number]
[2018-07-07] MEDS: traZODone HCl 50 MG TAB PO SCH (20:31)
[2018-07-08] MEDS: PROVENTIL INHALER 6.7 G (200 INHALATIONS) INH SCH ×3 (03:00→10:55)
[2018-07-08] MEDS: Acetaminophen 325 MG TAB PO PRN ×2 (04:13→13:29)
--- NOTE | 2018-07-08 06:56 | PDOC.EVN ---
Addendum - Attending - Attending Attestation Date/Time: 07/08/18 0655 I personally evaluated the patient and discussed the management with Dr. Hsieh. I agree with the History, Examination, Assessment and Plan documented in his progress note with any addition or exceptions noted below. Patient stable. She was placed back on some supplemental O2 overnight but anticipate this can be quickly weaned after she awakens. No complaints, resting comfortably. Anticipate discharge back to nursing facility today if she does well.
[2018-07-08] MEDS ORDERED: Lisinopril 20 MG TAB PO SCH (09:00)
[2018-07-08] MEDS: Escitalopram Oxalate 20 mg Tablet PO SCH (09:16)
[2018-07-08] MEDS: Enoxaparin Sodium 30 MG/0.3 ML SYRINGE SC SCH (09:16)
[2018-07-08] MEDS: tiZANidine HCl 4 MG TAB PO SCH (09:16)
[2018-07-08] MEDS: Famotidine 20 MG TAB PO SCH (09:17)
[2018-07-08] MEDS: Pregabalin 50 MG CAP PO SCH ×2 (09:17→14:05)
[2018-07-08] MEDS: CeleCOXIB 100 MG CAP PO SCH (09:17)
[2018-07-08] MEDS: predniSONE 20 MG TAB PO SCH (09:17)
--- NOTE | 2018-07-08 09:49 | PDOC.FM ---
- Subjective Subjective: This morning patient states she is feeling well and would like to go back to [place]. She states she had some problems sleeping because she did not get her usual dose of trazodone but other than she has no complaints. She states she does not feel short of breath and denies cough. - Objective Vital Signs & Weight: Vital Signs (12 hours) Temp Pulse Resp BP BP Pulse Ox 07/08/18 09:16 150/69 H 07/08/18 07:36 98.0 F 77 20 147/79 H 90 L 07/08/18 06:53 93 L 07/08/18 06:52 82 20 93 L 07/08/18 04:46 98.1 F 67 18 163/60 H 91 L 07/08/18 03:01 90 L 07/07/18 23:55 98.2 F 61 16 177/67 H 90 L Weight Weight 47.6 kg Most Recent Monitor Data Heart Rate from ECG 72 NIBP 171/78 NIBP BP-Mean 109 Respiration from ECG 19 SpO2 93 I&O: 07/07/18 07/08/18 07/09/18 06:59 06:59 06:59 Intake Total 960 Balance 960 Result Diagrams: 07/05/18 03:54 07/04/18 08:46 Phys Exam - Physical Examination Constitutional: NAD HEENT: PERRLA, moist MMs Neck: no nodes, full ROM No increased work or breathing, minimal rales throughout Cardiovascular: no rub 2/6 systolic murmur Gastrointestinal: soft, non-tender, no distention, positive bowel sounds Musculoskeletal: no edema, pulses present Neurological: non-focal, moves all 4 limbs Psychiatric: normal affect, A&O x 3 Skin: no rash, cap refill <2 seconds Dx/Plan (1) Acute exacerbation of CHF (congestive heart failure) Code(s): I50.9 - HEART FAILURE, UNSPECIFIED Status: Acute (2) Acute respiratory failure with hypoxia and hypercapnia Code(s): J96.01 - ACUTE RESPIRATORY FAILURE WITH HYPOXIA; J96.02 - ACUTE RESPIRATORY FAILURE WITH HYPERCAPNIA Status: Acute (3) COPD exacerbation Code(s): J44.1 - CHRONIC OBSTRUCTIVE PULMONARY DISEASE W (ACUTE) EXACERBATION Status: Acute (4) Bipolar disorder Code(s): F31.9 - BIPOLAR DISORDER, UNSPECIFIED Status: Chronic Qualifiers: Most recent bipolar episode type: most recent episode unspecified type (5) HTN (hypertension) Code(s): I10 - ESSENTIAL (PRIMARY) HYPERTENSION Status: Chronic Qualifiers: Hypertension type: essential hypertension Qualified Code(s): I10 - Essential (primary) hypertension - Plan Plan: 67 yo f admitted for encephalopathy though to be d/t acute hypoxic hypercapnic respiratory failure 2/2 COPD vs CHF exacerbation. 1. Encephalopathy 2/2 Acute Hypoxic Hypercapnic Respiratory failure- resolved - Likely secondary to COPD vs CHF exacerbation, likely combination of both, treated for both - Blood cultures NGTD 2. CHF exacerbation - XR evidence and elevated BNP on admission - Strict I&Os - Daily weights - pt refused lasix over the weekend - no swelling at the ankles 3. COPD Exacerbation - Influenza Negative - Duonebs q3h cora, and prn q3h, albuterol inh 1 puff cora q4h - Continue po levaquin and po prednisone 3. Hypertension - Continue home meds 4. Bipolar disorder - Continue home medications. 5. Misuse of pain medications - celebrex for relief - asking for more T3, discussed that this med is sedating and contributed to her encephalopathy and for this reason will not be going on this medication Disposition: Stable, awaiting placement arrangements
--- NOTE | 2018-07-08 10:44 | PDOC.EVN ---
Event Note - Event Note Event Note: This is primarily a COPD exacerbation and treated as such. patient refused lasix over the weekend referred to Dr. Umanzor oupt for f/u, echo taken but not read discussed with HF clinical documentation developer, will plan have patient f/u w/ Dr Umanzor and go to HF clinic from there if indicated
[2018-07-08] MEDS: Ondansetron ODT 4 MG TAB PO PRN (11:05)
[2018-07-08 11:48] VITALS: BP 164/72; TEMP 98.2
--- NOTE | 2018-07-08 13:33 | PQF ---
EVANS HERNANDEZ RYAN *r [id number] SURG B- [id number] CLINICAL DOCUMENTATION IMPROVEMENT CLARIFICATION FORM: ICD-10 Updated PLEASE DO AN ADDENDUM TO THE PROGRESS NOTE WITH ANY DOCUMENTATION UPDATES OR ADDITIONS AND CARRY THROUGH TO DC SUMMARY. THANK YOU. DATE: 07/08/2018 ATTN: MARY SAMS MD Please exercise your independent, professional judgment in responding to the clarification form. Clinical indicators are provided on the bottom of this form for your review Please check appropriate box(s): [ x ] Resolved Acute Metabolic and Toxic Encephalopathy d/t hypoxia as well as Benadryl and other sedating home medications; multifactorial [ ] Resolved Acute Metabolic Encephalopathy [ ] Resolved Acute Toxic Encephalopathy d/t Benadryl and other sedating home medications [ ] Transient Alteration of Awareness [ ] Other diagnosis [ ] Unable to determine In addition, please specify: Present on Admission (POA): [ x ] Yes [ ] No [ ] Unable to determine For continuity of documentation, please document condition throughout progress notes and discharge summary. Thank You. CLINICAL INDICATORS - SIGNS / SYMPTOMS / LABS: 07/04-ER: NONVERBAL AT THE MOMENT BUT A&Ox2 AT BASELINE. 07/0552-YCTAY-DRDM/CON: AE COPD. CONFUSION, PERHAPS AGGRAVATED BY BENADRYL. 07/04-H&P-NADINE: EVAL FOR AMS WITH COPD. PT IS AWAKE AND ALERT X3 BUT REQUIRES MULT ATTEMPTS AT QUESTIONING. 07/05-PENN: CACHEXIA, MALNUTRITION AND DECONDITIONING. 07/05-NADINE: RESOLVED ENCEPH, UNSPEF. ENCEPHALOPATHY-PRESUMED FROM BENADRYL AND HYPERSOMNOLENCE. RISK FACTORS: ASSISTED PATIENT GIVEN BENADRYL AND TAKES SEDATING MEDICATIONS SUCH T3, TIZANIDINE, LYRICA, TRAZODONE. TREATMENTS: Oxygen therapy IV antibiotics IV fluids Cause is corrected encephalopathy resolves: 07/05-NADINE: RESOLVED ENCEPH, UNSPEF. AFTER BIPAP THERAPY YEST, AMS RESOLVED. Thank you, Edita (This form is maintained as a part of the permanent medical record) 2014 [employer], [employer]. All Rights Reserved Edita Acevedo RN, CDIS [email or web address] [phone] [facility]
--- NOTE | 2018-07-08 13:45 | DIS ---
DATE OF ADMISSION: 07/04/2018 DATE OF DISCHARGE: 07/08/2018 RESIDENT: Dr. Good Hsieh. CONSULTS: Pulmonology. PROCEDURES: None. PRIMARY DIAGNOSIS: Chronic obstructive pulmonary disease exacerbation. SECONDARY DIAGNOSES: 1. resolved acute Encephalopathy secondary to acute hypoxic hypercapnic respiratory failure and sedating drugs 2. Hypertension. 3. Bipolar disorder. 4. Possible congestive heart failure. DISCHARGE MEDICATIONS: 1. Lisinopril 20 mg. 2. Tizanidine. 3. Trazodone. 4. Tiotropium. 5. Ranitidine. 6. Pregabalin. 7. Albuterol. 8. Tylenol No. 3. 9. Lexapro. Discontinued medications, none. HISTORY OF PRESENT ILLNESS/HOSPITAL COURSE: This is a 67-year-old female, who presented for evaluation of altered mental status. The patient was awake and alert and oriented x3, but required multiple attempts at questioning. The patient was sent to the ED from [facility] due to dyspnea and altered mental status. They stated that she began having a fever and cough the day before admission. She is able to ambulate and smoke every 2 hours all day long. Obtained history of severe COPD at baseline from patient's PCP. The patient was treated for COPD exacerbation with five day course of prednisone and Levaquin and steadily got better. She was also given nebulizer treatments as needed. There was concern for CHF exacerbation and echo was ordered for this, but this was not read prior to discharge. The patient refused her Lasix throughout the weekend and did get better, so it was suspected that the patient does have CHF, it was not the primary source for this admission. The patient will follow up outpatient with Dr. Umanzor for further evaluation of CHF. The patient's lisinopril was titrated up because she was hypertensive throughout the stay. I suspect the patient has a misuse of pain medications as she was asking for more Tylenol No. 3 throughout the stay, even though it was discussed that this is sedating and could contribute to her encephalopathy. The patient was ultimately discharged back to [facility], where she would be able to have PT and OT, continued to work with her as well as continue neb treatments as needed. The patient may use O2 as needed at the alf. The patient should follow up with Pulmonology for further evaluation of her COPD. She saw Dr. Victoria during this stay. DISPOSITION: Stable. DISCHARGE LOCATION: [facility]. DIET: Regular, 2 L fluid restriction until the patient has seen Dr. Umanzor. ACTIVITY: As tolerated. FOLLOWUP: Follow up with Dr. Umanzor within 7 days, Dr. Victoria within 7 days to two weeks. Primary care provider in 2 to 3 days. The patient should be evaluated for COPD by Pulmonology, evaluated for CHF by Cardiology. Job ID: [id number] MTDD
== END 2018-07-08 14:30 | DRG 189 ==
LOC: ERS 08:24 → IMCU/EMU 10:31 → SURG B 07-05 11:11
PROVIDERS: ADMIT Student in an Organized Health Care Education/Training Program; ATTEND Student in an Organized Health Care Education/Training Program
DX: J96.02 Acute respiratory failure with hypercapnia (principal); G92 Toxic encephalopathy; J44.1 Chronic obstructive pulmonary disease with (acute) exacerbation; E46 Unspecified protein-calorie malnutrition; R64 Cachexia; Z66 Do not resuscitate; J96.01 Acute respiratory failure with hypoxia; F31.9 Bipolar disorder, unspecified; I11.0 Hypertensive heart disease with heart failure; I50.9 Heart failure, unspecified; M06.9 Rheumatoid arthritis, unspecified; I35.0 Nonrheumatic aortic (valve) stenosis; F17.210 Nicotine dependence, cigarettes, uncomplicated; F19.99 Other psychoactive substance use, unspecified with unspecified psychoactive substance-induced disorder; F41.9 Anxiety disorder, unspecified; Z53.29 Procedure and treatment not carried out because of patient's decision for other reasons; Z90.710 Acquired absence of both cervix and uterus; Z95.1 Presence of aortocoronary bypass graft; Z79.51 Long term (current) use of inhaled steroids; Z68.21 Body mass index [BMI] 21.0-21.9, adult; Z88.2 Allergy status to sulfonamides
CPT/HCPCS: 36415; 51701; 71045; 80053; 81003; 81015; 82805; 83605; 83880; 84145; 85025; 87040; 87804; 93005; 93306; 94640; 94760; 96365; 96366; 96367; A4353; J1650; J1956; J2543; J2920; J3370; J7050; J7620; Q0162

== ENCOUNTER 2018-10-23 11:53 | Observation (INO) | payer MEDICARE, OTHER ==
[~2018-10-23 11:53] MED LIST: ISOVUE-370 76%-LOCM 1 ML ONE
[2018-10-23] MEDS ORDERED: Morphine 4 MG/ML VIAL ONE ×2 (13:10→14:07)
[2018-10-23] MEDS ORDERED: Ondansetron PF 4 MG/2 ML Vial ONE (13:11)
[2018-10-23 13:22] LABS: #Basophils 0.1 thou/uL (0.0-0.2); #Eosinphils 0.1 thou/uL (0.0-0.7); #Lymphocytes 1.9 thou/uL (1.20-3.40); #Monocytes 0.3 thou/uL (0.11-0.59); %Eosinophils 1.7 % (0.0-10.0); %Lymphocytes 30.5 % (21.0-51.0); %Monocytes 3.9 % (0.0-10.0); %Neutrophils 62.8 % (42.0-75.0); Hemoglobin 13.7 g/dL (12.0-16.0); Mean Corpuscular HGB CONC 33.7 g/dL (32.0-36.0); Mean Corpuscular Hemoglobin 30.5 pg (27.0-31.0); Mean Corpuscular Volume 90.7 fL (78.0-98.0); Mean Platelet Volume 8.8 fL (7.4-10.4); Platelet Count 203 thou/uL (130-400); RBC Distribution Width 12.6 % (11.5-14.5); Red Blood Cell (RBC) Count 4.49 mill/uL (4.20-5.40); White Blood Cell (WBC) Count 6.3 thou/uL (4.8-10.8)
--- NOTE | 2018-10-23 13:37 | RAD ---
PORTABLE CHEST: 10/23/09 INDICATION: Nausea and vomiting. COMPARISON: 07/04/18. Lung martino show no evidence of infiltrate or vascular congestion. Heart size within normal range. Po stop sternotomy changes and prosthetic heart valve again noted. Prominent aortic calcification again noted. IMPRESSION: No acute process. POS: [facility]
[2018-10-23 13:57] LABS: ALT (SGPT) 8 U/L (8-55); AST (SGOT) 10 U/L (5-34); Albumin 3.9 g/dL (3.4-4.8); Alkaline Phosphatase 139 U/L (40-150); Anion Gap 13 mmol/L (10-20); BUN (Urea Nitrogen) 20 mg/dL (9.8-20.1); Bilirubin, Total 0.3 mg/dL (0.2-1.2); Calc. Creatinine Clearance 0 mL/min (70-130); Calcium 9.3 mg/dL (7.8-10.44); Carbon Dioxide 30 mmol/L (23-31); Chloride 100 mmol/L (98-107); Estimated GFR-MDRD 72; Globulin 2.7 g/dL (2.4-3.5); Glucose 110 mg/dL (80-115); Lipase 65 U/L (8-78); Protein, Total 6.6 g/dL (6.0-8.3); Sodium 140 mmol/L (136-145)
[2018-10-23 14:00] LABS: Potassium 2.7 mmol/L (3.5-5.1)
[2018-10-23] MEDS ORDERED: Potassium Chloride 20 MEQ TAB ONE (14:19)
[2018-10-23] MEDS ORDERED: Potassium Chloride 20 MEQ in Premix Bag 1 BAG IVPB SCH (14:30)
[2018-10-23] MEDS ORDERED: Ketorolac Tromethamine 30 MG/ML VIAL ONE (15:27)
--- NOTE | 2018-10-23 15:30 | CT ---
CT OF THE ABDOMEN AND PELVIS WITH CONTRAST: 10/23/18 COMPARISON: 11/29/17 HISTORY: Low back pain for a few weeks. Abdominal pain. TECHNIQUE: Multiple contiguous axial images were obtained in a CT of the abdomen and pelvis with contrast. Coron al reformats were performed. FINDINGS: Multiple nonobstructing calculi are seen in the hilar regions of both kidneys. There are hypodensitie s in the hilar region of both kidneys along the region of the renal pyramids. These could potentially represent parapelvic cysts. The liver, gallbladder, adrenal glands, spleen, and pancreas are unremar kable. No free air or stranding changes are seen in the abdomen or pelvis. Scattered diverticula are seen in the colon. A small amount of free fluid is seen in the pelvis. The small bowel is normal in caliber. No abdominal or pelvic lymphadenopathy are seen. Atherosclerotic ca lcifications are seen in the aorta. Degenerative changes are seen in the spine. The visualized inferior thorax is unremarkable. Diffuse s oft tissue anasarca is seen. IMPRESSION: 1. No evidence of acute intra-abdominal/pelvic abnormality. 2. Stable appearance of the kidneys with bilateral nonobstructing renal calculi and parapelvic c ysts. 3. Diverticulosis. POS: [facility]
[2018-10-23 17:53] VITALS: BMI 19.0
[2018-10-23] MEDS: Pregabalin 50 MG CAP PO SCH (20:22)
[2018-10-23] MEDS: traZODone HCl 50 MG TAB PO SCH (20:23)
[2018-10-23] MEDS: Acetaminophen/Codeine 30-300mg Tablet PO PRN (20:23)
[2018-10-23] MEDS: tiZANidine HCl 4 MG TAB PO SCH (20:23)
[2018-10-23] MEDS: Ipratropium Bromide 2.5 ml Neb NEB SCH (20:40)
[2018-10-23] MEDS: PROVENTIL INHALER 6.7 G (200 INHALATIONS) INH SCH ×2 (20:40→21:58)
--- NOTE | 2018-10-24 01:14 | HP ---
PRIMARY CARE PHYSICIAN: Dr. Juan Navarrete. CHIEF COMPLAINT: Abdominal pain, nausea, vomiting, and diarrhea. HISTORY OF PRESENT ILLNESS: Ms. Funk is a 68-year-old female with past medical history of hypertension, COPD, chronic lumbar back pain, degenerative arthritis, rheumatoid arthritis, polycystic kidneys, and bipolar disorder, who had presented to [facility] earlier today with nausea, vomiting, diarrhea, and abdominal pain that has been going on and off over the last 2 weeks. She had denied any fever, chills, any headache, blurred vision, dizziness, any chest pain, palpitations, shortness of breath, any blood in her stool, any numbness, tingling, or swelling down her upper or lower extremities. She states that she has had about 4-5 episodes of nausea, vomiting, and diarrhea daily over the last 2 weeks that has been progressively getting worse. She states that she also suffers from chronic lower back pain and this has also been getting worse over the last 2 weeks as well. She had denied any fall or any recent trauma. She states that she has been taking her home pain medications, which has helped with her back pain, however this later returns. During her initial workup, chest x-ray was unremarkable along with CT abdomen and pelvis. Her lab showed a potassium level 2.7; therefore, she was given 40 mEq of potassium chloride by mouth and 20 mEq through her IV. Her blood pressure and other vital signs remained stable. REVIEW OF SYSTEMS: All other systems reviewed and found to be negative unless mentioned in the HPI. PAST MEDICAL HISTORY: Hypertension, COPD, polycystic kidney disease, rheumatoid arthritis, osteoarthritis, chronic lumbar back pain. PAST SURGICAL HISTORY: Hysterectomy, left knee surgery x2, tummy tuck, valve replacement, coronary artery bypass graft surgery x1 vessel. PSYCHIATRIC HISTORY: Significant for anxiety, depression, and bipolar I disorder. SOCIAL HISTORY: The patient denies alcohol use, however does admit to smoking half pack per day of cigarettes. She had also denied any illicit drug use, however she does have a history of use of cannabis. KNOWN ALLERGIES: Sulfa. CURRENT HOME MEDICATIONS: 1. Acetaminophen/codeine 300 mg/30 mg p.o. q.8 hours p.r.n. pain. 2. Albuterol sulfate one inhalation as needed every 4 hours for shortness of breath or wheezing. 3. Lexapro 20 mg oral daily. 4. DuoNeb 1 inhalation every 4 hours as needed for shortness of breath or wheezing. 5. Lisinopril 20 mg oral daily. 6. Pregabalin 200 mg oral t.i.d. 7. Spiriva 18 mcg one inhalation daily. 8. Tizanidine 4 mg p.o. b.i.d. 9. Trazodone 100 mg p.o. at bedtime. PHYSICAL EXAMINATION: VITAL SIGNS: BP 166/79, pulse 65, respirations 16, temperature 97.8 degrees Fahrenheit, O2 saturations 100% on room air. GENERAL: The patient is awake, alert, and oriented. She is currently lying comfortably in bed and in no acute distress. HEENT: Atraumatic, normocephalic. Pupils are round and reactive to light. Extraocular muscles intact. Moist mucous membranes noted. NECK: Soft and supple. Trachea midline. CARDIOVASCULAR: Positive S1 and S2. Regular rate and rhythm. No murmur auscultated. RESPIRATORY: Clear to auscultation bilaterally. No wheezes, rales, or rhonchi. ABDOMEN: Soft, mild tenderness, diffuse abdomen with hyperactive bowel sounds noted. MUSCULOSKELETAL: Strength 5+ bilaterally. Moves all extremities equal. Pedal and radial pulses 2+ bilaterally. No edema noted. NEUROLOGIC: Cranial nerves 2 through 12 grossly intact. No focal deficits noted. Speech intact and normal. Gait not assessed. SKIN: Warm, dry, and intact. No rashes. No ulceration noted. PSYCHIATRIC: The patient appears anxious at times with a flight of ideas and has needed some redirection during her visit. LABORATORY DATA: WBC 6.3, RBC 4.49, hemoglobin 13.7, hematocrit 40.8, platelet 203. Sodium 140, potassium 2.7, anion gap 13, BUN 20, creatinine 0.79, estimated GFR 72, glucose 110, AST 10, ALT 8, lipase 65. DIAGNOSTIC IMAGING: Portable chest x-ray showed no acute process. CT abdomen and pelvis with contrast showed no evidence of acute intraabdominal or pelvic abnormality. Stable appearance of kidneys with bilateral nonobstructing renal calculi and parapelvic cyst. ASSESSMENT AND PLAN: 1. Nausea, vomiting, diarrhea. This could possibly be secondary to gastroenteritis. CT abdomen and pelvis was essentially unremarkable and showed stable chronic changes. She will be started on Zofran as needed for her nausea. We will send a stool culture to rule out Clostridium difficile. She also be started on a clear liquid diet as tolerated. 2. Hypokalemia. Potassium upon arriving was 2.7. She had received a total of 40 mEq by mouth and 20 mEq via IV. We will recheck potassium and check a magnesium level and replace as needed. This is likely secondary to her above symptoms. 3. History of cannabis use. We will check a drug screen for further evaluation. 4. History of hypertension. She will be restarted on her home regimen, and blood pressure and other vital signs will be monitored throughout hospital course. 5. History of chronic obstructive pulmonary disease, currently stable at this time. She will be restarted on her home regimen. 6. History of anxiety, depression, and bipolar I disorder. She will be restarted on her home regimen. 7. Deep venous thrombosis and gastrointestinal prophylaxis. 8. Code status, full code. 9. Surrogate decision maker is her cousin, Marlene Dumont and her son, Alfa Gordon. 10. Disposition, the patient will be monitored on the medical floor. We will rule out C diff and treat her symptomatically. Once she is stabilized, she will likely be discharged home in the next 1 to 2 days. Job ID: [id number]
[2018-10-24] MEDS: PROVENTIL INHALER 6.7 G (200 INHALATIONS) INH SCH ×3 (01:58→10:54)
[2018-10-24] MEDS: Ipratropium Bromide 2.5 ml Neb NEB SCH ×2 (01:58→07:06)
[2018-10-24 02:47] LABS: Amphetamine Not Detected (NotDetected); Barbiturates Screen Not Detected (NotDetected); Benzodiazepine Screen Not Detected (NotDetected); Cocaine Metabolite Screen Not Detected (NotDetected); Medtox Control Line Valid? VALID (VALID); Medtox Reader # READER 4; Methadone Not Detected (NotDetected); Methamphetamine Not Detected (NotDetected); Opiate Screen Detected (NotDetected); Oxycodone Screen Not Detected (NotDetected); Phencyclidine (PCP) Not Detected (NotDetected); THC/Cannabinoid Screen Detected (NotDetected); Tricyclic Screen Not Detected (NotDetected)
[2018-10-24] MEDS: Acetaminophen/Codeine 30-300mg Tablet PO PRN ×2 (05:54→18:36)
[2018-10-24 06:25] LABS: Anion Gap 11 mmol/L (10-20); BUN (Urea Nitrogen) 15 mg/dL (9.8-20.1); Calc. Creatinine Clearance 48 mL/min (70-130); Calcium 8.4 mg/dL (7.8-10.44); Carbon Dioxide 25 mmol/L (23-31); Chloride 107 mmol/L (98-107); Estimated GFR-MDRD 78; Glucose 84 mg/dL (80-115); Magnesium 1.8 mg/dL (1.6-2.6); Potassium 3.6 mmol/L (3.5-5.1); Sodium 139 mmol/L (136-145)
[2018-10-24 06:40] LABS: #Basophils 0.1 thou/uL (0.0-0.2); #Eosinphils 0.2 thou/uL (0.0-0.7); #Lymphocytes 2.6 thou/uL (1.20-3.40); #Monocytes 0.3 thou/uL (0.11-0.59); #Neutrophils 2.4 thou/uL (1.40-6.50); %Eosinophils 4.4 % (0.0-10.0); %Lymphocytes 45.7 % (21.0-51.0); %Neutrophils 42.9 % (42.0-75.0); Hemoglobin 11.6 g/dL (12.0-16.0); Mean Corpuscular HGB CONC 32.3 g/dL (32.0-36.0); Mean Corpuscular Hemoglobin 30.3 pg (27.0-31.0); Mean Corpuscular Volume 93.8 fL (78.0-98.0); Mean Platelet Volume 8.8 fL (7.4-10.4); Platelet Count 168 thou/uL (130-400); RBC Distribution Width 12.5 % (11.5-14.5); Red Blood Cell (RBC) Count 3.82 mill/uL (4.20-5.40); White Blood Cell (WBC) Count 5.6 thou/uL (4.8-10.8)
[2018-10-24] MEDS: Pregabalin 50 MG CAP PO SCH ×3 (08:56→19:52)
[2018-10-24] MEDS: tiZANidine HCl 4 MG TAB PO SCH ×2 (08:57→19:52)
[2018-10-24] MEDS: Escitalopram Oxalate 20 mg Tablet PO SCH (08:58)
[2018-10-24] MEDS: Lisinopril 20 MG TAB PO SCH (09:01)
[2018-10-24] MEDS ORDERED: Acetaminophen/Codeine 30-300mg Tablet PO SCH (12:00)
--- NOTE | 2018-10-24 15:28 | PRG ---
DATE OF SERVICE: 10/24/2018 SUBJECTIVE: The patient was seen and examined at the bedside. She is not having any nausea and vomiting this morning. She did not have any diarrhea this morning either. She would like to eat some food. OBJECTIVE: VITAL SIGNS: Blood pressure is 122/78, pulse is 60, respiratory rate is 20, and O2 saturation is 93% on room air. GENERAL: She looks sick and tired and emaciated. HEENT: Her head is atraumatic and normocephalic. Eyes are PERRLA. Sclerae are nonicteric. Oral mucosa is somewhat dry. NECK: Supple. LUNGS: Clear. HEART: S1 and S2 normal. There is a systolic murmur at the left sternal border, 2/6. ABDOMEN: Soft and nontender. Bowel sounds are present. No organomegaly. EXTREMITIES: No clubbing, cyanosis, or edema. NEUROLOGICAL: She is alert and oriented x4. There is no any motor or sensory deficits present. LABORATORY DATA: Labs showed white count of 5.6, hemoglobin 11.6, hematocrit 35.8, and platelet count is 168,000. Chemistry within normal limits. Potassium 3.6. IMPRESSION AND PLAN: 1. Two-week history of nausea, vomiting, and abdominal diarrhea. The patient was not able to give us a stool sample for a Clostridium difficile toxins and antigen. We are still waiting for that sample. We will get GI involved since this is going on for 2 weeks and it depleted her off electrolytes and her energy level is significantly diminished. 2. Hypokalemia. Her potassium is improved to 3.6. I am going to give her additional 40 of KCl and check her magnesium level. 3. History of cannabinoids use. 4. History of hypertension. 5. Chronic obstructive pulmonary disease. We will keep her on her home regimen. 6. History of anxiety and depression and bipolar I disorder. She is restarted on her home medications. 7. She is getting deep venous thrombosis prophylaxis. Job ID: [id number]
[2018-10-24] MEDS ORDERED: Potassium Chloride 20 MEQ TAB PO SCH (15:30)
--- NOTE | 2018-10-24 18:05 | CON ---
DATE OF CONSULTATION: 10/24/2018 REQUESTING PHYSICIAN: Matt Morataya MD REASON FOR CONSULTATION: Nausea, vomiting, and diarrhea for 2 weeks. HISTORY OF PRESENT ILLNESS: Ayleen Funk is a 68-year-old woman, who was previously seen by my GI colleague, Dr. Dominic Vang. She has a history significant for COPD, bipolar disorder, and coronary artery disease with coronary artery bypass graft. She has chronic low back pain and takes opiates for this. She had an EGD and colonoscopy with Dr. Vang about 3 years ago. She just had a single polyp removed and some diverticulosis in the colon as well as mild nonerosive gastritis at that time. She has no chronic gastrointestinal symptoms. She does smoke marijuana from time to time she says, primarily for her back pain. Two weeks ago, she had a fairly abrupt onset of nausea and vomiting as well as diarrhea. She reports 2 to 3 episodes of nonbloody emesis per day and a more chronic nausea sensation. Her bowel movements became loose to watery. She has been having about two of these loose bowel movements every day over this time frame. There has been no melena or hematochezia. There has been some associated generalized abdominal pain. Symptoms did not seem to be improving and in fact seemed to be escalating over the past few days and that prompted her presentation. She was found to be hypokalemic, but laboratory studies have been otherwise essentially unremarkable with only mild anemia with hemoglobin 11.6, normal LFTs and lipase. She had a chest x-ray and a CT of the abdomen and pelvis, which are essentially unrevealing as well. She states that since admission yesterday morning, she has actually been doing a lot better. She is not having any current abdominal pain. She has not had any other vomiting. There is some mild nausea, but she is actually feeling hungry. She has had no bowel movements so far today. There has been no fever. She has remained hemodynamically stable. She is not getting any empiric antibiotics. REVIEW OF SYSTEMS: Full review of systems including constitutional, head, eyes, ears, nose, throat, GI, , cardiovascular, respiratory, musculoskeletal, and neurologic systems are negative except as noted in the HPI. PAST MEDICAL HISTORY: COPD, hypertension, chronic back pain, degenerative joint disease, rheumatoid arthritis, bipolar disorder, hysterectomy, knee surgery, and coronary artery bypass graft. ALLERGIES: SULFA. OUTPATIENT MEDICATIONS: 1. Acetaminophen/codeine. 2. Albuterol. 3. DuoNeb. 4. Lisinopril. 5. Spiriva. 6. Tizanidine. 7. Trazodone. 8. Lyrica. SOCIAL HISTORY: The patient does smoke cigarettes from time to time. She also smokes marijuana occasionally. She says the last time she used marijuana was about 1 month ago. She says she does not smoke to get high, but just to try to alleviate her back pain. No alcohol use. FAMILY HISTORY: Negative for gastrointestinal malignancy. PHYSICAL EXAMINATION: VITAL SIGNS: Temperature 98.0, pulse 60, blood pressure 89/51, and 93% oxygen saturation on room air. GENERAL: A 68-year-old woman lying in bed comfortably, in no distress. SKIN: No jaundice. No rashes were palpable. HEENT: Eyes, no scleral icterus. Extraocular movements intact. ENT, mucous membranes moist. No oral lesions. LYMPH: No submandibular or supraclavicular lymphadenopathy. THYROID: Nontender to palpation. HEART: Regular rate and rhythm. LUNGS: Clear to auscultation bilaterally. ABDOMEN: Bowel sounds are present in fact hyperactive in all four quadrants, but no guarding or rebound tenderness. Nontender to palpation. EXTREMITIES: No peripheral edema. VESSELS: Radial pulses 2+ bilaterally. NEURO: Cranial nerves 2 through 12 intact bilaterally. No focal deficits. LABORATORY STUDIES: WBC 5.6, hemoglobin 11.6, platelets 168, and MCV 93.8. Sodium 139, potassium 3.6, BUN 15, creatinine 0.74, glucose 84, lipase 65, total bilirubin 0.3, alkaline phosphatase 139, AST 10, ALT 8, and albumin 3.9. Urine drug screen is positive for cannabinoids and opiates. IMAGING STUDIES: Chest x-ray showed no acute processes. CT of the abdomen and pelvis showed no acute processes. Normal appearing liver, spleen, and pancreas. She has diverticulosis, normal small bowel. No lymphadenopathy. ASSESSMENT AND PLAN: 1. Nausea and vomiting x2 weeks. 2. Diarrhea x2 weeks. 3. Cannabis abuse. I discussed a broad differential with the patient for her symptoms. Most likely this represents an acute infectious gastroenteritis, which is atypically taking longer to resolve. Consider also the possibility of cannabis hyperemesis syndrome. Less likely would be onset of inflammatory bowel disease or development of upper GI mucosal process. Note the labs and the imaging are all reassuring. Stool studies have been ordered, and I agree with this. We will follow up the results when she is able to have a bowel movement. I think at this point, particularly since her symptoms seem to be improving today, we can go ahead and try to slowly advance her diet. We will order a full liquid diet for this evening. If she is continuing to do better tomorrow, then I think her diet could be advanced further and she could potentially be discharged from the hospital. If she has recurrent vomiting or significant diarrhea with this, then tomorrow we could discuss potential bowel preparation for esophagogastroduodenoscopy and colonoscopy later this admission. In summary, given her symptomatic improvement, we will try to advance diet, get stool studies and follow up results, and go from there. Thank you for the consultation. Please call anytime with questions or concerns. Job ID: [id number]
[2018-10-24] MEDS: Ibuprofen 200 MG TAB PO PRN (19:51)
[2018-10-24] MEDS: traZODone HCl 50 MG TAB PO SCH (19:52)
[2018-10-25] MEDS: Ibuprofen 200 MG TAB PO PRN ×2 (01:08→09:53)
[2018-10-25] MEDS ORDERED: Diclofenac 1% 100 GM GEL TP SCH ×2 (03:00→09:00)
[2018-10-25] MEDS ORDERED: Methyl Salicylate/Menthol 85 GM TUBE TOP SCH (03:00)
[2018-10-25 06:04] LABS: Anion Gap 7 mmol/L (10-20); BUN (Urea Nitrogen) 7 mg/dL (9.8-20.1); Calc. Creatinine Clearance 54 mL/min (70-130); Calcium 8.4 mg/dL (7.8-10.44); Carbon Dioxide 24 mmol/L (23-31); Chloride 110 mmol/L (98-107); Estimated GFR-MDRD 90; Glucose 75 mg/dL (80-115); Potassium 4.2 mmol/L (3.5-5.1); Sodium 137 mmol/L (136-145)
[2018-10-25 06:06] LABS: Hemoglobin 10.6 g/dL (12.0-16.0); Hypochromia SLIGHT = 6-15 cells (100X) (0-5/hpf); Lymphocytes 50 % (21-51); MDiff Complete? YES; Mean Corpuscular HGB CONC 32.4 g/dL (32.0-36.0); Mean Corpuscular Hemoglobin 30.3 pg (27.0-31.0); Mean Corpuscular Volume 93.5 fL (78.0-98.0); Mean Platelet Volume 8.2 fL (7.4-10.4); Monocytes 4 % (0-10); Neutrophil 46 % (42-75); Platelet Count 169 thou/uL (130-400); Platelet Morphology Comment Appears Adequate; RBC Distribution Width 12.5 % (11.5-14.5); Red Blood Cell (RBC) Count 3.51 mill/uL (4.20-5.40)
[2018-10-25] MEDS: Lisinopril 20 MG TAB PO SCH (08:08)
[2018-10-25] MEDS: tiZANidine HCl 4 MG TAB PO SCH ×2 (08:08→21:06)
[2018-10-25] MEDS: Pregabalin 50 MG CAP PO SCH ×3 (08:09→21:04)
[2018-10-25] MEDS: Methyl Salicylate/Menthol 85 GM TUBE TOP SCH ×4 (08:10→20:36)
[2018-10-25] MEDS: Escitalopram Oxalate 20 mg Tablet PO SCH (08:10)
[2018-10-25] MEDS ORDERED: Amlodipine 5 MG TAB PO SCH (13:30)
--- NOTE | 2018-10-25 13:57 | PRG ---
DATE OF SERVICE: 10/25/2018 SUBJECTIVE: The patient is seen and examined at the bedside. She feels somewhat better. She had bowel movement. She gave a stool sample, which was sent out to the lab. She is on full liquid diet, tolerating without any problems. OBJECTIVE: VITAL SIGNS: Blood pressure is 175/80, pulse is 58, respiratory rate is 16, O2 saturation is 98% on room air. GENERAL: She looks somewhat better, but still tired and somewhat sick. HEENT: Her pupils are responding to light properly. Sclerae are nonicteric. Oral mucosa is slightly dry. NECK: Supple. LUNGS: Clear. HEART: S1 and S2 normal. ABDOMEN: Soft and nontender. Bowel sounds are present. No organomegaly. EXTREMITIES: No clubbing, cyanosis, or edema. NEUROLOGIC: She is alert and oriented x4. There are no any motor deficits. LABORATORY DATA: Labs showed white count of 4.0, hemoglobin 10.6, hematocrit 32.8, platelet count 169,000. Sodium of 137, potassium 4.2, chloride 110, BUN of 7, creatinine of 0.65, glucose 75, and calcium is 8.4. Stool culture preliminary Campylobacter antigen assay pending. Shiga toxin 1 and 2 negative, that for Escherichia coli. C difficile antigen, positive. IMPRESSION: 1. Gastroenteritis secondary to Clostridium difficile. 2. Hypokalemia, corrected. 3. History of cannabinoids use. 4. History of hypertension. I am going to start her on 2.5 mg of amlodipine now, then daily. 5. Chronic obstructive pulmonary disease. 6. History of anxiety and depression and bipolar one disorder. PLAN: Plan is to start her on amlodipine, start her on oral vancomycin 125 mg q.6 hours, hold the discharge, and advance the diet as tolerated. Job ID: [id number]
[2018-10-25] MEDS: Acetaminophen/Codeine 30-300mg Tablet PO PRN ×2 (14:55→20:35)
[2018-10-25] MEDS: Vancomycin HCl 25 MG/ML Oral PO SCH ×5 (15:20→23:30)
--- NOTE | 2018-10-25 16:22 | PRG ---
DATE OF SERVICE: 10/25/2018 SUBJECTIVE: Ms. Funk has been feeling a bit better today. She had a bowel movement last night and has been gassy today, but actually no further diarrhea today. Abdominal discomfort is better. Nausea is improved. She has been tolerating her solid diet today. Stool studies came back positive for C difficile antigen and toxin and she was started on oral vancomycin. SUBJECTIVE: VITAL SIGNS: Temperature 97.0, pulse 55, blood pressure 185/77, 99% oxygen saturation on room air. GENERAL: No acute distress. HEART: Regular rate and rhythm. LUNGS: Clear to auscultation bilaterally. ABDOMEN: Bowel sounds present. Soft and nontender to palpation throughout. EXTREMITIES: No peripheral edema. LABORATORY STUDIES: Sodium 137, potassium 4.2, BUN 7, creatinine 0.65, glucose 75. WBC 4.0, hemoglobin 10.6, and platelets 169. Stool studies showed positive C difficile antigen and toxin, Campylobacter antigen is negative, shiga toxin is negative. ASSESSMENT AND PLAN: 1. Clostridium difficile colitis. 2. Diarrhea, secondary to Clostridium difficile. 3. Nausea and vomiting, improved. Dr. Morataya is started the patient on vancomycin 125 mg p.o. every 6 hours. This is appropriate therapy and that should be continued for 14 days duration. Anticipate that the patient is going to do well with this. If the patient is doing well tomorrow morning, then I would recommend she will be discharged from the hospital to finish out her antimicrobial therapy as an outpatient. We will plan to see her back in the GI Clinic in 3 to 4 weeks to ensure symptom resolution. GI will sign off, but please call back anytime with questions or concerns. Job ID: [id number]
[2018-10-25] MEDS ORDERED: hydrALAZINE 20 MG/ML VIAL SLOW IVP PRN (17:12)
[2018-10-25] MEDS: traZODone HCl 50 MG TAB PO SCH (21:05)
[2018-10-26] MEDS: Vancomycin HCl 25 MG/ML Oral PO SCH (05:09)
[2018-10-26] MEDS: Acetaminophen/Codeine 30-300mg Tablet PO PRN (06:02)
[2018-10-26 07:44] VITALS: BP 132/70; TEMP 97.8
[2018-10-26] MEDS: Lisinopril 20 MG TAB PO SCH (08:44)
[2018-10-26] MEDS: Pregabalin 50 MG CAP PO SCH (08:44)
[2018-10-26] MEDS: tiZANidine HCl 4 MG TAB PO SCH (08:44)
[2018-10-26] MEDS: Escitalopram Oxalate 20 mg Tablet PO SCH (08:44)
[2018-10-26] MEDS: Methyl Salicylate/Menthol 85 GM TUBE TOP SCH (08:46)
[2018-10-26] MEDS ORDERED: Amlodipine 5 MG TAB PO SCH (09:00)
--- NOTE | 2018-10-26 22:34 | DIS ---
DATE OF ADMISSION: 10/23/2018 DATE OF DISCHARGE: 10/26/2018 DISCHARGE DIAGNOSES: 1. Clostridium difficile colitis. 2. Nausea, vomiting, and diarrhea with abdominal cramping secondary to Clostridium difficile colitis. 3. Hypokalemia, corrected. 4. History of cannabinoids use. 5. History of hypertension, started on amlodipine 2.5 mg daily during this hospitalization. 6. Chronic obstructive pulmonary disease, chronic, stable. 7. History of anxiety and depression. 8. Bipolar disorder. LOG BUNCHER: Dr. Justin Gray, Gastrointestinal Service. HOSPITAL COURSE: The patient was a 68-year-old female, who was admitted to the hospital with nausea, vomiting, diarrhea, and abdominal pain. She presented to the [facility] Emergency Room with above-mentioned complaints which were going on for approximately 2 weeks. She denied any fever, chills, headache, blurred vision, dizziness, or any chest pain. This was progressively getting worse. She chronically suffers from low back pain which she has been taking Tylenol for. While in the emergency room, a CT of the abdomen and pelvis was unremarkable. Potassium level was down to 2.7, this was replaced and the patient got admitted to the hospital for further evaluation and management. Her white count was 6.3, hemoglobin 13.7, platelet count 203. BUN 20, creatinine 0.79, AST 10, glucose 110, ALT 8, and lipase 65. The patient was seen by funnel setter, Dr. Gray, who recommended further diagnostic workup with testing her stool which was done and stool culture came back negative for Escherichia coli O157, Campylobacter and shiga toxins 1 and 2, but it came back positive for Clostridium difficile antigen. The patient was started on oral vancomycin. She is doing well. She is tolerating her soft diet. No more nausea and vomiting, and abdominal pain is subsided. Her blood pressure is 132/70, pulse is 57, respirations 16, O2 is 96% on room air, temperature is 97.8. She is seen and examined before she is discharged. She is discharged home with recommendation to stay on low-salt diet. ACTIVITIES: As tolerated. HOME MEDICATIONS: 1. Amlodipine 2.5 mg daily. 2. Vancomycin 125 mg capsules every 6 hours for the next 13 days. 3. Albuterol 1 inhalation q.4 hours. 4. Lexapro 20 mg daily. 5. DuoNeb p.r.n. 6. Lisinopril 20 mg daily. 7. Lyrica one capsule 3 times a day. 8. Ranitidine 1 tablet once a day. 9. Spiriva 1 one inhalation daily. 10. Zanaflex 4 mg twice a day. 11. Trazodone one tablet at bedtime. 12. Tylenol No.3 q.6 hours p.r.n. as needed. She is going to have prescription for amlodipine, vancomycin, and Tylenol No.3. FOLLOWUP: She will follow up with her primary doctor in [address] Gray in 2 to 3 weeks. TIME SPENT: This discharge took less than 30 minutes. Job ID: [id number]
== END 2018-10-26 09:18 | disposition home or self-care (01) ==
LOC: ERS 11:53 → T4-A 15:00
PROVIDERS: ADMIT Internal Medicine; ATTEND Internal Medicine
DX: K52.9 Noninfective gastroenteritis and colitis, unspecified (principal); B96.89 Other specified bacterial agents as the cause of diseases classified elsewhere; E87.6 Hypokalemia; F12.10 Cannabis abuse, uncomplicated; J44.9 Chronic obstructive pulmonary disease, unspecified; I10 Essential (primary) hypertension; F41.8 Other specified anxiety disorders; F31.9 Bipolar disorder, unspecified; G89.29 Other chronic pain; M54.5 Low back pain; M19.90 Unspecified osteoarthritis, unspecified site; M06.9 Rheumatoid arthritis, unspecified; Q61.3 Polycystic kidney, unspecified; F17.210 Nicotine dependence, cigarettes, uncomplicated; Z79.899 Other long term (current) drug therapy; Z88.2 Allergy status to sulfonamides; Z95.1 Presence of aortocoronary bypass graft; Z98.890 Other specified postprocedural states
CPT/HCPCS: 71045; 74177; 80048 ×2; 80053; 80306; 82962; 83690; 83735; 85025 ×3; 87045; 87046; 87324; 87449 ×2; 87493; 87899 ×2; 94640 ×4; 94664; 96361; 96365; 96375 ×2; 96376; 99285; G0378 ×3; 36415; 36416; J0360; J1885; J2270; J2405; J3480; J7620; Q9966

== ENCOUNTER 2018-10-28 10:44 | Observation (INO) | payer MEDICARE, OTHER ==
[2018-10-28] MEDS ORDERED: Morphine 2 MG/ML SYRINGE ONE (11:02)
[2018-10-28] MEDS ORDERED: Ondansetron PF 4 MG/2 ML Vial ONE ×2 (11:02→14:55)
[2018-10-28 11:23] LABS: #Basophils 0.1 thou/uL (0.0-0.2); #Lymphocytes 1.2 thou/uL (1.20-3.40); #Monocytes 0.2 thou/uL (0.11-0.59); #Neutrophils 2.3 thou/uL (1.40-6.50); %Basophils 1.8 % (0.0-1.0); %Eosinophils 0.9 % (0.0-10.0); %Lymphocytes 31.8 % (21.0-51.0); %Monocytes 4.3 % (0.0-10.0); %Neutrophils 61.2 % (42.0-75.0); Hemoglobin 11.8 g/dL (12.0-16.0); Mean Corpuscular HGB CONC 33.5 g/dL (32.0-36.0); Mean Corpuscular Hemoglobin 30.7 pg (27.0-31.0); Mean Corpuscular Volume 91.9 fL (78.0-98.0); Mean Platelet Volume 7.4 fL (7.4-10.4); Platelet Count 212 thou/uL (130-400); RBC Distribution Width 12.8 % (11.5-14.5); Red Blood Cell (RBC) Count 3.84 mill/uL (4.20-5.40); White Blood Cell (WBC) Count 3.7 thou/uL (4.8-10.8)
[2018-10-28 11:49] LABS: ALT (SGPT) 10 U/L (8-55); AST (SGOT) 11 U/L (5-34); Albumin 3.6 g/dL (3.4-4.8); Alkaline Phosphatase 119 U/L (40-150); Anion Gap 11 mmol/L (10-20); BUN (Urea Nitrogen) 6 mg/dL (9.8-20.1); Bilirubin, Total 0.3 mg/dL (0.2-1.2); Calc. Creatinine Clearance 0 mL/min (70-130); Calcium 9.1 mg/dL (7.8-10.44); Carbon Dioxide 28 mmol/L (23-31); Chloride 106 mmol/L (98-107); Estimated GFR-MDRD Greater than 90; Globulin 2.4 g/dL (2.4-3.5); Glucose 96 mg/dL (80-115); Potassium 4.8 mmol/L (3.5-5.1); Sodium 140 mmol/L (136-145)
[2018-10-28] MEDS ORDERED: Acetaminophen/Codeine 30-300mg Tablet ONE (14:55)
[2018-10-28] MEDS ORDERED: Vancomycin HCl 25 MG/ML Oral PO SCH (15:00)
[2018-10-28] MEDS ORDERED: tiZANidine HCl 4 MG TAB PO SCH (15:00)
[2018-10-28] MEDS ORDERED: Ondansetron PF 4 MG/2 ML Vial IVP PRN (16:54)
[2018-10-28 17:03] VITALS: BMI 19.1
[2018-10-28] MEDS: Sodium Chloride 0.9% 1,000 ML IV SCH (17:09)
[2018-10-28] MEDS ORDERED: Acetaminophen/Codeine 30-300mg Tablet PO PRN (17:24)
[2018-10-28] MEDS: HYDROcodone/Acetaminophen 5/325 mg Tablet PO PRN ×2 (17:48→22:05)
[2018-10-28] MEDS: Ipratropium Bromide 2.5 ml Neb NEB SCH (19:06)
[2018-10-28] MEDS: PROVENTIL INHALER 6.7 G (200 INHALATIONS) INH SCH ×2 (19:06→22:01)
[2018-10-28] MEDS: Pregabalin 50 MG CAP PO SCH (21:27)
[2018-10-28] MEDS: Famotidine 20 MG TAB PO SCH (21:28)
[2018-10-28] MEDS: traZODone HCl 50 MG TAB PO SCH (21:28)
[2018-10-28] MEDS: Vancomycin HCl 25 MG/ML Oral PO SCH (21:29)
[2018-10-28] MEDS: tiZANidine HCl 4 MG TAB PO SCH (21:29)
--- NOTE | 2018-10-28 22:05 | HP ---
CHIEF COMPLAINT: Nausea, vomiting, abdominal pain, and diarrhea. HISTORY OF PRESENT ILLNESS: The patient is a 68-year-old female, who was just discharged home from the hospital two days ago and she went to the pharmacy, where the vancomycin prescription was transmitted and an apparently, the transmission went to [facility] not to [facility] on [address], where she was supposed to get it. After that, she went to [facility], where the prescription was sent to and they did not have the medications in stock. She had to wait and then she started having nausea, vomiting, abdominal pain and diarrhea again. She came to the emergency room for help. No fever. She had a little bit of chills. No shortness of breath. Please refer to detailed H and P, which was done on the 23 of October by QUYNH Payne. PAST MEDICAL HISTORY: Positive for, 1. Chronic obstructive pulmonary disease. 2. Hypertension. 3. Polycystic kidney disease. 4. Rheumatoid arthritis. 5. Osteoarthritis. 6. Chronic lumbar back pain. PAST SURGICAL HISTORY: 1. Hysterectomy. 2. Left knee surgery x2. 3. Tummy tuck. 4. Valve replacement. 5. Coronary artery bypass graft surgery x1 vessel. SOCIAL HISTORY: She denies any alcohol. She smokes half a pack of cigarettes per day. Denies any illicit drug use. ALLERGIES: SULFA. CURRENT MEDICATIONS: 1. Amlodipine. 2. Vancomycin. 3. Albuterol. 4. Lexapro. 5. DuoNeb. 6. Lisinopril. 7. Lyrica. 8. Ranitidine. 9. Spiriva. 10. Zanaflex. 11. Trazodone. 12. Tylenol No. 3. REVIEW OF SYSTEMS: All other systems reviewed and found to be negative unless mentioned in HPI. PHYSICAL EXAMINATION: VITAL SIGNS: Blood pressure is 146/106, pulse is 70, respirations 16, O2 saturation is 98% on room air, and temperature is 98.2. HEENT: Head is atraumatic and normocephalic. She looks tired and malnourished. Eyes are PERRLA. Sclerae nonicteric. Oral mucosa is somewhat dry. NECK: Supple. LUNGS: Clear. HEART: S1, S2 normal. No S3. No S4. There is a systolic murmur at the left sternal border, 2/6. ABDOMEN: Soft. Somewhat tender all over the abdomen on deeper palpation. No guarding. No masses. EXTREMITIES: No clubbing, cyanosis, or edema. NEUROLOGICAL: She follows my commands. She moves all 4 extremities. There is no any motor or sensory deficits. LABORATORY DATA: Labs showed white count of 3.7, hemoglobin 11.8, hematocrit 35.3, and platelet count is 212. Normal chemistry. IMPRESSION: 1. Clostridium difficile colitis related to nausea, vomiting, abdominal pain, and diarrhea. 2. History of cannabinoid use. 3. Hypertension. 4. Chronic obstructive pulmonary disease, chronic, stable. 5. History of anxiety and depression. 6. Bipolar. 7. Polycystic kidney disease. 8. Rheumatoid arthritis. 9. Chronic lumbar back pain. 10. Osteoarthritis. PLAN: Admission for observation. Condition is fair. Activity is bedrest and bathroom privileges. IV normal saline 75 mL/h. Antiemetics. Vancomycin 125 mg p.o. q.6 hours. We will start her back on her medications orally as soon as her nausea and vomiting are under control. We will do DVT prophylaxis with SCDs and Lovenox subcutaneously. Job ID: [id number]
[2018-10-29] MEDS: Ipratropium Bromide 2.5 ml Neb NEB SCH ×3 (00:13→15:38)
[2018-10-29] MEDS: PROVENTIL INHALER 6.7 G (200 INHALATIONS) INH SCH ×4 (02:24→15:38)
[2018-10-29] MEDS: Vancomycin HCl 25 MG/ML Oral PO SCH ×4 (03:02→20:11)
[2018-10-29] MEDS: HYDROcodone/Acetaminophen 5/325 mg Tablet PO PRN ×5 (03:08→20:08)
[2018-10-29 04:55] LABS: Anion Gap 8 mmol/L (10-20); BUN (Urea Nitrogen) 6 mg/dL (9.8-20.1); Calc. Creatinine Clearance 56 mL/min (70-130); Calcium 8.5 mg/dL (7.8-10.44); Carbon Dioxide 25 mmol/L (23-31); Chloride 111 mmol/L (98-107); Estimated GFR-MDRD 89; Glucose 81 mg/dL (80-115); Potassium 3.6 mmol/L (3.5-5.1); Sodium 140 mmol/L (136-145)
[2018-10-29 05:15] LABS: Hemoglobin 11.1 g/dL (12.0-16.0); Hypochromia SLIGHT = 6-15 cells (100X) (0-5/hpf); Lymphocytes 59 % (21-51); MDiff Complete? YES; Mean Corpuscular HGB CONC 31.8 g/dL (32.0-36.0); Mean Corpuscular Hemoglobin 29.6 pg (27.0-31.0); Mean Corpuscular Volume 93.3 fL (78.0-98.0); Mean Platelet Volume 7.8 fL (7.4-10.4); Monocytes 3 % (0-10); Neutrophil 38 % (42-75); Platelet Count 203 thou/uL (130-400); Platelet Morphology Comment Appears Adequate; RBC Distribution Width 12.8 % (11.5-14.5); Red Blood Cell (RBC) Count 3.74 mill/uL (4.20-5.40); White Blood Cell (WBC) Count 4.2 thou/uL (4.8-10.8)
[2018-10-29] MEDS: Sodium Chloride 0.9% 1,000 ML IV SCH (06:39)
[2018-10-29] MEDS: tiZANidine HCl 4 MG TAB PO SCH ×2 (07:24→20:07)
[2018-10-29] MEDS: Pregabalin 50 MG CAP PO SCH ×3 (07:24→20:03)
[2018-10-29] MEDS: Famotidine 20 MG TAB PO SCH ×2 (07:25→20:03)
[2018-10-29] MEDS: Escitalopram Oxalate 20 mg Tablet PO SCH (07:26)
[2018-10-29] MEDS: Lisinopril 20 MG TAB PO SCH (08:43)
[2018-10-29] MEDS: Enoxaparin Sodium 40 MG/0.4 ML SYRINGE SC SCH (08:44)
[2018-10-29] MEDS: Amlodipine 5 MG TAB PO SCH (08:44)
--- NOTE | 2018-10-29 13:48 | PRG ---
DATE OF SERVICE: 10/29/2018 SUBJECTIVE: The patient is seen and examined at the bedside. She is doing somewhat better. She does not have any vomiting, but she is still nauseated. She still has some abdominal cramps. OBJECTIVE: VITAL SIGNS: Blood pressure is 147/65, pulse is 62, respiratory rate is 16, O2 saturation is 97% on room air. Her temperature is 98.3. HEENT: Head is atraumatic and normocephalic. Eyes are PERRLA. Sclerae are nonicteric. Oral mucosa is moist. NECK: Supple. LUNGS: Clear. HEART: S1, S2 normal. ABDOMEN: Soft. Somewhat tender in diffuse fashion all over. EXTREMITIES: No clubbing, cyanosis, or edema. NEUROLOGIC: She follows my commands. She moves all 4 extremities. LABORATORY DATA: White count of 4.2, hemoglobin 11.1, hematocrit 34.9, platelet count is 203. Sodium of 140, potassium 3.6, chloride 111, CO2 of 25, creatinine 0.66, glucose 81, calcium 8.5. IMPRESSION: Clostridium difficile colitis. The patient is placed on p.o. vancomycin every 6 hours and I expect her to be ready to be discharged home in the next 24 to 48 hours as soon as she starts tolerating food, not having any emesis or nausea. Her abdominal pain is under control. She can be discharged on p.o. vancomycin. Prescription is in the pharmacy, I believe in [facility]. Job ID: [id number]
[2018-10-29] MEDS: traZODone HCl 50 MG TAB PO SCH (20:07)
[2018-10-30] MEDS: Vancomycin HCl 25 MG/ML Oral PO SCH ×3 (04:12→15:42)
[2018-10-30] MEDS: HYDROcodone/Acetaminophen 5/325 mg Tablet PO PRN ×3 (04:42→12:43)
[2018-10-30] MEDS: Amlodipine 5 MG TAB PO SCH (08:36)
[2018-10-30] MEDS: Famotidine 20 MG TAB PO SCH (08:37)
[2018-10-30] MEDS: Pregabalin 50 MG CAP PO SCH ×2 (08:37→15:41)
[2018-10-30] MEDS: Escitalopram Oxalate 20 mg Tablet PO SCH (08:37)
[2018-10-30] MEDS: Lisinopril 20 MG TAB PO SCH (08:37)
[2018-10-30] MEDS: Enoxaparin Sodium 40 MG/0.4 ML SYRINGE SC SCH (08:37)
[2018-10-30] MEDS: tiZANidine HCl 4 MG TAB PO SCH (08:39)
--- NOTE | 2018-10-30 09:16 | PDOC.PN ---
- Subjective Encounter Start Date: 10/30/18 (f/u c diff) Encounter Start Time: 09:14 Subjective: Pt reports feeling better, some pain but denies n/v. able to -: ambulate. Denies any other medical problems or concerns. - Objective Resuscitation Status - Order Detail: 10/28/18 15:00 Resuscitation Status Routine Resuscitation Status: FULL: Full Resuscitation Vital Signs & Weight: Vital Signs (12 hours) Temp Pulse Resp BP Pulse Ox 10/30/18 08:49 64 134/60 10/30/18 08:36 68 10/30/18 08:00 97.9 F 68 16 115/56 L 94 L 10/30/18 06:45 92 12 10/30/18 03:58 96.7 F L 52 L 14 125/61 92 L 10/30/18 00:04 97.7 F 50 L 12 109/54 L 92 L 10/29/18 21:55 14 118/56 L 94 L Weight Weight 97 lb 4.8 oz I&O: 10/29/18 10/30/18 10/31/18 06:59 06:59 06:59 Intake Total 1399 1340 Output Total 620 Balance 1399 720 Result Diagrams: 10/30/18 10:13 10/30/18 10:13 EKG Reviewed by me: Yes Phys Exam - Physical Examination Constitutional: NAD Respiratory: no wheezing, no rales, no rhonchi Cardiovascular: RRR 3/6 BLAKE Gastrointestinal: soft, non-tender, no distention, positive bowel sounds Musculoskeletal: no edema, pulses present Neurological: non-focal, moves all 4 limbs Skin: no rash Dx/Plan (1) C. difficile colitis Code(s): A04.72 - ENTEROCOLITIS D/T CLOSTRIDIUM DIFFICILE, NOT SPCF RECUR Status: Acute (2) HTN (hypertension) Code(s): I10 - ESSENTIAL (PRIMARY) HYPERTENSION Status: Chronic Qualifiers: Hypertension type: essential hypertension Qualified Code(s): I10 - Essential (primary) hypertension - Plan * bp's on lower side of normal - monitor today as hypertensive yesterday * continue current meds as ordered * check labs this morning * * pt reports murmur is chronic * continue home meds * pt reports she is out of home meds- advised that I cannot write for [facility]. Will re-eval plan for pain this afternoon. She is requesting [facility] - will write out rx. * * dvt prophy - ambulatory * gi prophy - not indicated\ * * reviewed plan of care with patient * if asx this afternoon, will plan on d/c to home * .
[2018-10-30 10:33] LABS: #Eosinphils 0.1 thou/uL (0.0-0.7); #Lymphocytes 1.6 thou/uL (1.20-3.40); #Monocytes 0.3 thou/uL (0.11-0.59); #Neutrophils 2.5 thou/uL (1.40-6.50); %Basophils 0.7 % (0.0-1.0); %Eosinophils 2.6 % (0.0-10.0); %Lymphocytes 35.4 % (21.0-51.0); %Monocytes 5.8 % (0.0-10.0); %Neutrophils 55.4 % (42.0-75.0); Hemoglobin 10.9 g/dL (12.0-16.0); Mean Corpuscular HGB CONC 32.9 g/dL (32.0-36.0); Mean Corpuscular Hemoglobin 30.7 pg (27.0-31.0); Mean Corpuscular Volume 93.1 fL (78.0-98.0); Mean Platelet Volume 7.2 fL (7.4-10.4); Platelet Count 195 thou/uL (130-400); RBC Distribution Width 12.8 % (11.5-14.5); Red Blood Cell (RBC) Count 3.55 mill/uL (4.20-5.40); White Blood Cell (WBC) Count 4.6 thou/uL (4.8-10.8)
[2018-10-30 10:54] LABS: Anion Gap 12 mmol/L (10-20); BUN (Urea Nitrogen) 10 mg/dL (9.8-20.1); Calc. Creatinine Clearance 54 mL/min (70-130); Calcium 8.8 mg/dL (7.8-10.44); Carbon Dioxide 25 mmol/L (23-31); Chloride 105 mmol/L (98-107); Estimated GFR-MDRD 86; Glucose 110 mg/dL (80-115); Potassium 4.2 mmol/L (3.5-5.1); Sodium 138 mmol/L (136-145)
[2018-10-30 12:55] VITALS: BP 133/60; TEMP 98.9
--- NOTE | 2018-10-30 15:48 | DIS ---
DATE OF ADMISSION: 10/28/2018 DATE OF DISCHARGE: 10/30/2018 MEDICATIONS: Reconciled at discharge and are unchanged compared to the patient' s admission. 1. Tylenol with Codeine 1 tablet p.o. q.6 hours p.r.n. moderate pain. Written prescription provided for 12 tablets. 2. Albuterol sulfate RespiClick one inhalation every 4 hours as needed. 3. Norvasc 2.5 mg daily. 4. Lexapro 20 mg daily. 5. DuoNebs 1 inhalation q.4 hours p.r.n. 6. Lisinopril 20 mg p.o. daily. 7. Zofran 4 mg q.6 hours p.r.n. for nausea and vomiting. 8. Lyrica 200 mg t.i.d. 9. Ranitidine 150 mg daily. 10. Spiriva 18 mcg daily. 11. Vancomycin 125 mg p.o. four times daily for 2 weeks. 12. Tizanidine 4 mg b.i.d. 13. Trazodone 100 mg p.o. at bedtime. Of note, the patient reports she is out of all of her medications and unable to get to her doctor. I refilled for a three-day supply only. I recommend that she follow up with her Primary Care Physician as soon as possible. The following were ordered electronically - norvasc, lisinopril, zofran, ranitidine, trazodone. The following prescriptions were written as the electronic system did not accept them - Tylenol 3, Lyrica, Lexapro, tizanidine. . The patient reports that she is on Willis at home - I am unable to write for this prescription. I provided a new prescription for the vancomycin and extended it for a two-week course given a gap in treatment. Her pharmacist called and they are substituting capsules that they have in stock rather than ordering liquid Vancomycin. FINAL DIAGNOSES: 1. Clostridium difficile colitis with nausea, vomiting, and abdominal pain. SECONDARY DIAGNOSES: 1. Hypertension. 2. Chronic obstructive pulmonary disease. 3. Anxiety, depression. 4. Polycystic kidney disease. 5. Rheumatoid arthritis. 6. Chronic lumbar back pain. 7. Osteoarthritis. 8. History of cannabinoid use. 9. Anemia, chronic and mild. HISTORY OF PRESENT ILLNESS: Ms. Funk is a 68-year-old female with the above medical problems, who returns to the hospital after discharge stating that she was unable to obtain the vancomycin, and had return of nausea, vomiting, and abdominal pain. She also had a return of diarrhea. She was admitted for further workup. HOSPITAL COURSE: The patient has been hydrated with IV fluids, restarted on the oral vancomycin and her symptoms have all improved. Her pain has been managed here with Willis, which is her reported medication at home. Her symptoms have overall resolved. Her last episode of diarrhea was yesterday. She is overall feeling well, and meets criteria for discharge to home, as well as requesting discharge. The patient's blood pressures were low-normal overnight. She has been monitored today off IV fluids and blood pressures have remained normal on her usual home medications. She will continue on the same medications with recommendation that she follow up with her regular primary care provider to refill all of her medications, as well as to continue to manage the pain. PHYSICAL EXAMINATION: VITAL SIGNS: On day of discharge, please see the note on the chart. WARREN FINDINGS AND TEST RESULTS: CBC; 4.6, 10.9, 33, 195. Chemistry; 138, 4.2, 105, 25, 10, 0.68, 110. LFTs are negative. DIET: Heart healthy. ACTIVITY: As tolerated. DISCHARGE DISPOSITION: Home. CODE STATUS: Full. The patient has return for care precautions, demonstrates understanding of the medications for three days only, and the essential nature of obtaining the vancomycin and starting today. No questions or further needs at end of evaluation. Total time coordinating discharge is less than 30 minutes. Job ID: [id number] MTDD
== END 2018-10-30 16:10 | disposition home or self-care (01) ==
LOC: ERS 10:44 → 2SW 14:03
PROVIDERS: ADMIT Internal Medicine; ATTEND Internal Medicine
DX: A04.72 Enterocolitis due to Clostridium difficile, not specified as recurrent (principal); I10 Essential (primary) hypertension; J44.9 Chronic obstructive pulmonary disease, unspecified; F41.9 Anxiety disorder, unspecified; F31.9 Bipolar disorder, unspecified; Q61.3 Polycystic kidney, unspecified; M06.9 Rheumatoid arthritis, unspecified; M54.5 Low back pain; G89.29 Other chronic pain; M19.90 Unspecified osteoarthritis, unspecified site; F12.90 Cannabis use, unspecified, uncomplicated; D64.9 Anemia, unspecified; F17.210 Nicotine dependence, cigarettes, uncomplicated; Z88.2 Allergy status to sulfonamides; Z79.899 Other long term (current) drug therapy
CPT/HCPCS: 80048 ×2; 80053; 85025 ×3; 94640 ×5; 96361 ×3; 96372; 96374; 96375; 96376 ×2; 97139; 99285; G0378 ×3; 36415; J1650; J2270; J2405; J7620

== ENCOUNTER 2018-11-23 10:05 | Inpatient (IN) | payer MEDICARE, OTHER ==
[2018-11-23] MEDS ORDERED: Morphine 4 MG/ML VIAL ONE ×2 (10:35→14:32)
[2018-11-23 10:51] LABS: #Basophils 0.1 thou/uL (0.0-0.2); #Eosinphils 0.1 thou/uL (0.0-0.7); #Lymphocytes 1.7 thou/uL (1.20-3.40); #Monocytes 0.1 thou/uL (0.11-0.59); #Neutrophils 1.9 thou/uL (1.40-6.50); %Basophils 1.7 % (0.0-1.0); %Lymphocytes 43.8 % (21.0-51.0); %Monocytes 3.3 % (0.0-10.0); %Neutrophils 48.2 % (42.0-75.0); Hemoglobin 14.6 g/dL (12.0-16.0); Mean Corpuscular HGB CONC 35.6 g/dL (32.0-36.0); Mean Corpuscular Hemoglobin 32.7 pg (27.0-31.0); Mean Corpuscular Volume 91.8 fL (78.0-98.0); Mean Platelet Volume 7.7 fL (7.4-10.4); Platelet Count 234 thou/uL (130-400); RBC Distribution Width 13.7 % (11.5-14.5); Red Blood Cell (RBC) Count 4.45 mill/uL (4.20-5.40); White Blood Cell (WBC) Count 3.8 thou/uL (4.8-10.8)
[2018-11-23] MEDS ORDERED: Ondansetron PF 4 MG/2 ML Vial ONE ×3 (10:55→13:19)
[2018-11-23 11:10] LABS: ALT (SGPT) 10 U/L (8-55); AST (SGOT) 11 U/L (5-34); Albumin 4.4 g/dL (3.4-4.8); Alkaline Phosphatase 143 U/L (40-150); Anion Gap 14 mmol/L (10-20); BUN (Urea Nitrogen) 7 mg/dL (9.8-20.1); Bilirubin, Total 0.3 mg/dL (0.2-1.2); Calc. Creatinine Clearance 0 mL/min (70-130); Calcium 9.8 mg/dL (7.8-10.44); Carbon Dioxide 26 mmol/L (23-31); Chloride 103 mmol/L (98-107); Estimated GFR-MDRD 71; Globulin 3.1 g/dL (2.4-3.5); Glucose 80 mg/dL (80-115); Potassium 3.4 mmol/L (3.5-5.1); Protein, Total 7.5 g/dL (6.0-8.3); Sodium 140 mmol/L (136-145)
[2018-11-23 11:42] LABS: Bilirubin Negative (Negative); Blood, Urine Negative (Negative); Clarity Clear (Clear); Glucose, Urine (Dipstick) Normal (Negative); Leukocyte Negative Leu/uL (Negative); Nitrite Negative (Negative); Protein, Urine (Dipstick) Negative (Neg-Trace); Urobilinogen Normal mg/dL (Less than 2)
[2018-11-23] MEDS ORDERED: Ondansetron PF 4 MG/2 ML Vial IVP PRN (16:15)
[2018-11-23] MEDS ORDERED: Ondansetron ODT 4 MG TAB PO PRN ×2 (16:15→19:36)
[2018-11-23] MEDS ORDERED: hydrALAZINE 20 MG/ML VIAL SLOW IVP PRN ×2 (16:15→19:35)
[2018-11-23] MEDS ORDERED: Sodium Chloride 0.9% 1,000 ML IV SCH (16:15)
[2018-11-23] MEDS ORDERED: Acetaminophen 325 MG TAB PO PRN ×2 (16:15→19:34)
[2018-11-23] MEDS ORDERED: Acetaminophen/Codeine 30-300mg Tablet PO PRN (16:15)
[2018-11-23 17:30] VITALS: BMI 19.1
[2018-11-23 18:09] LABS: Free T4 (Free Thyroxine) 0.75 ng/dL (0.70-1.48); Thyroid Stimulating Hormone 3.244 uIU/mL (0.35-4.94)
--- NOTE | 2018-11-23 18:36 | HP ---
PRIMARY CARE PHYSICIAN: Dr. Juan Navarrete. CHIEF COMPLAINT: Diarrhea as well as nausea and vomiting. HISTORY OF PRESENT ILLNESS: Ms. Funk is a very pleasant 68-year-old female, who has a history of COPD, hypertension, polycystic kidney disease, rheumatoid arthritis, and osteoarthritis. She was in her usual state of health until around the October 14, when she began having nausea, vomiting, and diarrhea. She sought medical attention and was diagnosed with Clostridium difficile. She was given a round of treatment with oral vancomycin. She was rehydrated and started to feel better, but then around the October 28, she started having symptoms again. She says that she was feeling better after about 2 days of treatment and was discharged home. She was discharged once again on oral vancomycin for approximately a 2-week course. She was feeling good until the last 3 to 4 days of her treatment, then in about 2 or 3 days, started all over again. She describes abdominal cramping as well as severe, she says nausea and vomiting as well as diarrhea about 4 to 5 loose stools a day. She denies any blood in the stools and no hematochezia and no hematemesis. She was afraid that it had happened all over again. She also describes about a 10- to 15-pound weight loss in the last few months as well, and "just wants to feel better." She presented herself to the emergency room once again and she is being placed in observation. REVIEW OF SYSTEMS: CONSTITUTIONAL: She denies any fevers or chills. No night sweats. No weight loss. HEENT: No headaches. No dizziness. No visual changes. No sore throat, rhinorrhea, or neck pain. No adenopathy. PULMONARY: No hemoptysis. No cough. No wheezing. CARDIOVASCULAR: She denies any chest pain. No shortness of breath. No PND. No orthopnea. GASTROINTESTINAL: As in history of present illness. GENITOURINARY: No urinary frequency or hematuria. No hesitancy. MUSCULOSKELETAL: No muscle pains, weakness, or joint pains. NEUROLOGIC: No focal weakness or numbness. No seizures. PSYCHIATRIC: No symptoms of anxiety or depression. SKIN AND INTEGUMENT: No skin changes. No rash. ENDOCRINE: No heat or cold intolerance. PAST MEDICAL HISTORY: Significant for COPD, hypertension, polycystic kidney disease, rheumatoid arthritis, osteoarthritis, chronic low back pain, fibromyalgia, restless legs syndrome, and history of diverticulosis in the past. PAST SURGICAL HISTORY: She has had a hysterectomy for hemorrhage, left knee surgery x2. She has had a valve replacement surgery as well as bypass and a tummy tuck. ALLERGIES: SULFA. SOCIAL HISTORY: She lives alone. She is a former smoker. She quit about a month ago. She has a son that lives in [place], and she denies any alcohol or drug use. FAMILY HISTORY: Significant for lung cancer and brain cancer. CURRENT MEDICATIONS: Include, 1. Amlodipine 2.5 mg daily. 2. Zanaflex 4 mg daily. 3. Trazodone 100 mg once a day. 4. Spiriva Respimat one inhalation daily. 5. Ranitidine 75 mg daily. 6. Lyrica 200 mg three times a day. 7. Ipratropium albuterol 1 puff neb q.4 hours as needed. 8. Escitalopram 20 mg daily. 9. Lisinopril 20 mg daily. 10. Tylenol No. 3 q.6 as needed. PHYSICAL EXAMINATION: GENERAL: She is alert and oriented. She appears to be in no acute distress; however, she is fairly frail and chronically ill in appearance. VITAL SIGNS: Blood pressure is 145/117, heart rate is 71, respiratory rate of 16, temperature is 97.7, and O2 saturation is 100% on room air. HEENT: Her pupils are equal, round, and reactive to light. Extraocular muscles are intact. Her sclerae are anicteric. Throat, there is no erythema, no exudate. Her mucosa is a bit dry. She is edentulous. NECK: There is no adenopathy. No bruits. LUNGS: Clear to auscultation. There is no wheezing, no rales, no rhonchi. CARDIOVASCULAR: She had a normal S1 and S2. No S3 or S4. A slight grade 2/6 systolic murmur. ABDOMEN: Soft. She did have some mid abdominal tenderness, but there is no guarding, no rebound. No evidence of any organomegaly. EXTREMITIES: There is no calf tenderness. No joint effusions. NEUROLOGICAL: The exam is grossly nonfocal. SKIN AND INTEGUMENT: There are no significant skin changes or rashes. LABORATORY RESULTS: Urinalysis was essentially negative. On the CBC, the white blood cell count is 3.8, hemoglobin is 14.6, hematocrit is , and platelet count is 234. Sodium is 140, potassium is 3.4, chloride is 103, CO2 is 26, BUN of 7, creatinine is 0.8, glucose is 80, and her liver function tests were normal. ASSESSMENT: 1. This is a pleasant 68-year-old female, who presents with recurrent diarrhea as well as nausea and vomiting. She has recently been diagnosed with Clostridium difficile. It is possible that this is a reoccurrence or recrudescence of the Clostridium difficile after two prior treatment courses and it is also possible that this could be due to some other cause. She does use chronic opioid medications for pain, and she has not been able to keep these medications down during these last few days and weeks, and it is possible that this could be related to opiate withdrawal. However, she does not feel so, and says that she has been off opiates before in the past and has never had such a reaction. It also could be due to other infectious causes or even metabolic causes such as thyroid disease. She will be placed in observation. Once again, we will get stool studies and depending on those results, we will determine whether or not she needs an ID or GI consultation. We will get thyroid function test, if these have not already been done, and monitor her electrolytes and replete as necessary and also hydration as needed. 2. Chronic low back pain. She requests to be restarted back on her usual home medications and these will be started as well as DuoNeb's p.r.n. 3. Hypertension. We will go ahead and restart her usual home medications with the exception of lisinopril and place her on p.r.n. medications for blood pressure. 4. Chronic obstructive pulmonary disease. Again, continue Spiriva as well as p.r.n. DuoNeb. 5. She will also be placed on deep vein thrombosis and gastrointestinal prophylaxis. Job ID: [id number]
[2018-11-23] MEDS: Pregabalin 50 MG CAP PO SCH (20:00)
[2018-11-23] MEDS: traZODone HCl 50 MG TAB PO SCH (20:01)
[2018-11-23] MEDS: tiZANidine HCl 4 MG TAB PO SCH (20:01)
[2018-11-23] MEDS: Famotidine 20 MG TAB PO SCH (20:01)
[2018-11-23] MEDS: Sodium Chloride 0.9% 1,000 ML IV SCH (20:02)
[2018-11-23] MEDS: Acetaminophen/Codeine 30-300mg Tablet PO PRN (20:04)
[2018-11-23] MEDS ORDERED: Pregabalin 50 MG CAP PO SCH (21:00)
[2018-11-23] MEDS ORDERED: tiZANidine HCl 4 MG TAB PO SCH (21:00)
[2018-11-23] MEDS ORDERED: traZODone HCl 50 MG TAB PO SCH (21:00)
[2018-11-23] MEDS ORDERED: Famotidine 20 MG TAB PO SCH (21:00)
[2018-11-24] MEDS: Ipratropium Bromide 2.5 ml Neb NEB SCH ×5 (00:41→23:31)
[2018-11-24] MEDS ORDERED: Ipratropium Bromide 2.5 ml Neb NEB SCH (01:00)
[2018-11-24 06:31] LABS: Anion Gap 12 mmol/L (10-20); BUN (Urea Nitrogen) 4 mg/dL (9.8-20.1); Calc. Creatinine Clearance 55 mL/min (70-130); Calcium 8.7 mg/dL (7.8-10.44); Carbon Dioxide 24 mmol/L (23-31); Chloride 111 mmol/L (98-107); Estimated GFR-MDRD 90; Glucose 77 mg/dL (80-115); Potassium 3.6 mmol/L (3.5-5.1); Sodium 143 mmol/L (136-145)
[2018-11-24 06:42] LABS: Eosinophils 1 % (0-10); Lymphocytes 58 % (21-51); MDiff Complete? YES; Mean Corpuscular HGB CONC 33.5 g/dL (32.0-36.0); Mean Corpuscular Volume 92.6 fL (78.0-98.0); Mean Platelet Volume 7.7 fL (7.4-10.4); Monocytes 4 % (0-10); Neutrophil 37 % (42-75); Platelet Count 183 thou/uL (130-400); Platelet Morphology Comment Appears Adequate; RBC Distribution Width 13.7 % (11.5-14.5); RBC Morphology Normal; Red Blood Cell (RBC) Count 3.86 mill/uL (4.20-5.40); White Blood Cell (WBC) Count 3.3 thou/uL (4.8-10.8)
[2018-11-24] MEDS: tiZANidine HCl 4 MG TAB PO SCH ×2 (08:40→20:54)
[2018-11-24] MEDS: Enoxaparin Sodium 40 MG/0.4 ML SYRINGE SC SCH (08:40)
[2018-11-24] MEDS: Pregabalin 50 MG CAP PO SCH ×3 (08:41→20:54)
[2018-11-24] MEDS: Famotidine 20 MG TAB PO SCH ×2 (08:41→20:54)
[2018-11-24] MEDS: Ondansetron PF 4 MG/2 ML Vial IVP PRN ×2 (08:42→14:19)
[2018-11-24] MEDS ORDERED: Enoxaparin Sodium 40 MG/0.4 ML SYRINGE SC SCH (09:00)
[2018-11-24] MEDS: Sodium Chloride 0.9% 1,000 ML IV SCH ×2 (09:02→20:56)
[2018-11-24] MEDS: Acetaminophen/Codeine 30-300mg Tablet PO PRN ×3 (10:18→22:22)
--- NOTE | 2018-11-24 12:52 | PDOC.HOSPP ---
- Subjective Encounter Date: 11/24/18 Encounter Time: 12:51 Subjective: Patient seen and examined, states she's not having diarrhea anymore, but is unable to eat and has been having nausea/vomitting, state she's afraid to eat because of her nausea. - Objective Vital Signs & Weight: Vital Signs (12 hours) Temp Pulse Resp BP Pulse Ox 11/24/18 07:10 97.8 F 59 L 16 176/71 H 97 11/24/18 04:36 97.5 F L 54 L 14 146/76 H 98 Weight Weight 94 lb 12.78 oz Result Diagrams: 11/24/18 05:38 11/24/18 05:38 ROS - Medication Medications: Active Medications Generic Name Dose Route Start Last Admin Trade Name Freq PRN Reason Stop Dose Admin Acetaminophen/Codeine Phosphate 1 tab 11/23/18 19:36 11/24/18 10:18 Tylenol #3 PO 1 tab Q6H PRN Administration Pain 4-6 Enoxaparin Sodium 40 mg 11/24/18 09:00 11/24/18 08:40 Lovenox SC 40 mg 0900 CESARIO Administration Famotidine 20 mg 11/23/18 21:00 11/24/18 08:41 Pepcid PO 20 mg BID CESARIO Administration Sodium Chloride 1,000 mls @ 75 mls/hr 11/23/18 19:45 11/24/18 09:02 Normal Saline 0.9% IV 1,000 mls .[id number] CESARIO Administration Ipratropium [place] 2.5 ml 11/24/18 01:00 11/24/18 07:09 Atrovent NEB Not Given [id number] CESARIO Ondansetron HCl 4 mg 11/23/18 19:36 11/24/18 08:42 Zofran IVP 4 mg Q6H PRN Administration Nausea/Vomiting Pregabalin 200 mg 11/23/18 21:00 11/24/18 08:41 Lyrica PO 200 mg TID CESARIO Administration Tizanidine HCl 4 mg 11/23/18 21:00 11/24/18 08:40 Zanaflex PO 4 mg BID CESARIO Administration Trazodone HCl 100 mg 11/23/18 21:00 11/23/18 20:01 Desyrel PO 100 mg HS CESARIO Administration - Exam NAD, awake alert Eye: PERRL, anicteric sclera ENT: normocephalic atraumatic, no oropharyngeal lesions Neck: supple, symmetric, no JVD Heart: RRR, no murmur, no gallops Respiratory: CTAB, no wheezes, no rales Gastrointestinal: soft, non-tender, non-distended Hosp A/P (1) Nausea & vomiting Code(s): R11.2 - NAUSEA WITH VOMITING, UNSPECIFIED Status: Acute (2) CAD (coronary artery disease) Code(s): I25.10 - ATHSCL HEART DISEASE OF [place] CORONARY ARTERY W/O ANG PCTRS Status: Chronic Qualifiers: Coronary Disease-Associated Artery/Lesion type: [place] artery [place] vs. transplanted heart: [place] heart Associated angina: without angina Qualified Code(s): I25.10 - Atherosclerotic heart disease of [place] coronary artery without angina pectoris (3) COPD (chronic obstructive pulmonary disease) Status: Chronic (4) HTN (hypertension) Code(s): I10 - ESSENTIAL (PRIMARY) HYPERTENSION Status: Chronic Qualifiers: Hypertension type: essential hypertension Qualified Code(s): I10 - Essential (primary) hypertension - Plan - add on phenergan to zofran for nausea/vomitting - patient unable to eat - vomitted once during exam - will obtain KUB in AM - labs in AM - DC once able to tolerate diet - case and plan d/w patient at length, she understood and agreed with this plan.
[2018-11-24] MEDS ORDERED: Promethazine 25 MG TAB PO PRN (12:56)
--- NOTE | 2018-11-24 13:49 | RAD ---
EXAM: Single view of the abdomen HISTORY: Abdominal pain COMPARISON: None FINDINGS: Single view of the abdomen shows a nonspecific, nonobstructive bowel gas pattern. No suspi cious calcifications are seen. Degenerative changes are seen in the spine. IMPRESSION: Unremarkable exam
[2018-11-24] MEDS: traZODone HCl 50 MG TAB PO SCH (20:54)
[2018-11-25 06:52] LABS: #Basophils 0.1 thou/uL (0.0-0.2); #Eosinphils 0.1 thou/uL (0.0-0.7); #Lymphocytes 1.9 thou/uL (1.20-3.40); #Monocytes 0.3 thou/uL (0.11-0.59); #Neutrophils 1.8 thou/uL (1.40-6.50); %Basophils 1.3 % (0.0-1.0); %Eosinophils 3.6 % (0.0-10.0); %Lymphocytes 45.9 % (21.0-51.0); %Monocytes 6.1 % (0.0-10.0); %Neutrophils 43.1 % (42.0-75.0); Hemoglobin 10.5 g/dL (12.0-16.0); Mean Corpuscular HGB CONC 33.4 g/dL (32.0-36.0); Mean Corpuscular Hemoglobin 30.3 pg (27.0-31.0); Mean Corpuscular Volume 90.8 fL (78.0-98.0); Mean Platelet Volume 7.9 fL (7.4-10.4); Platelet Count 154 thou/uL (130-400); RBC Distribution Width 13.5 % (11.5-14.5); Red Blood Cell (RBC) Count 3.46 mill/uL (4.20-5.40); White Blood Cell (WBC) Count 4.1 thou/uL (4.8-10.8)
[2018-11-25] MEDS: Ipratropium Bromide 2.5 ml Neb NEB SCH ×2 (07:09→14:26)
[2018-11-25 07:13] LABS: Anion Gap 9 mmol/L (10-20); BUN (Urea Nitrogen) 8 mg/dL (9.8-20.1); Calc. Creatinine Clearance 47 mL/min (70-130); Calcium 8.2 mg/dL (7.8-10.44); Carbon Dioxide 25 mmol/L (23-31); Chloride 111 mmol/L (98-107); Estimated GFR-MDRD 75; Glucose 79 mg/dL (80-115); Potassium 3.4 mmol/L (3.5-5.1); Sodium 142 mmol/L (136-145)
[2018-11-25] MEDS: Pregabalin 50 MG CAP PO SCH ×3 (09:09→19:39)
[2018-11-25] MEDS: Famotidine 20 MG TAB PO SCH ×2 (09:09→19:39)
[2018-11-25] MEDS: Enoxaparin Sodium 40 MG/0.4 ML SYRINGE SC SCH (09:10)
[2018-11-25] MEDS: tiZANidine HCl 4 MG TAB PO SCH ×2 (09:10→19:39)
[2018-11-25] MEDS: Sodium Chloride 0.9% 1,000 ML IV SCH ×2 (09:11→19:42)
[2018-11-25] MEDS: Acetaminophen/Codeine 30-300mg Tablet PO PRN ×3 (10:03→22:05)
[2018-11-25] MEDS: Ondansetron PF 4 MG/2 ML Vial IVP PRN ×2 (11:53→17:28)
--- NOTE | 2018-11-25 12:23 | PDOC.HOSPP ---
- Subjective Encounter Date: 11/25/18 Encounter Time: 12:19 Subjective: nauseated, unable to eat or drink without vomiting - Objective Vital Signs & Weight: Vital Signs (12 hours) Temp Pulse Resp BP Pulse Ox 11/25/18 07:00 98.1 F 54 L 18 154/55 H 95 Weight Weight 94 lb 12.78 oz Result Diagrams: 11/25/18 06:21 11/25/18 06:21 ROS - Medication Medications: Active Medications Generic Name Dose Route Start Last Admin Trade Name Freq PRN Reason Stop Dose Admin Acetaminophen/Codeine Phosphate 1 tab 11/23/18 19:36 11/25/18 10:03 Tylenol #3 PO 1 tab Q6H PRN Administration Pain 4-6 Enoxaparin Sodium 40 mg 11/24/18 09:00 11/25/18 09:10 Lovenox SC 40 mg 0900 CESARIO Administration Famotidine 20 mg 11/23/18 21:00 11/25/18 09:09 Pepcid PO 20 mg BID CESARIO Administration Sodium Chloride 1,000 mls @ 75 mls/hr 11/23/18 19:45 11/25/18 09:11 Normal Saline 0.9% IV 1,000 mls .[id number] CEASRIO Administration Ipratropium [place] 2.5 ml 11/24/18 01:00 11/25/18 07:09 Atrovent NEB Not Given [id number] CESARIO Ondansetron HCl 4 mg 11/23/18 19:36 11/25/18 11:53 Zofran IVP 4 mg Q6H PRN Administration Nausea/Vomiting Pregabalin 200 mg 11/23/18 21:00 11/25/18 09:09 Lyrica PO 200 mg TID CESARIO Administration Promethazine HCl 25 mg 11/24/18 12:56 11/24/18 13:06 Phenergan PO 25 mg Q6H PRN Administration Nausea/Vomiting Sodium Chloride 10 ml 11/24/18 21:00 11/25/18 09:11 Flush - Normal Saline IVF Not Given Q12HR CESARIO Tizanidine HCl 4 mg 11/23/18 21:00 11/25/18 09:10 Zanaflex PO 4 mg BID CESARIO Administration Trazodone HCl 100 mg 11/23/18 21:00 11/24/18 20:54 Desyrel PO 100 mg HS CESARIO Administration - Exam Neck: no JVD Heart: RRR, no murmur Respiratory: CTAB Gastrointestinal: soft, non-distended, normal bowel sounds, no palpable masses, no bruit Extremities: no edema Hosp A/P (1) Nausea & vomiting Code(s): R11.2 - NAUSEA WITH VOMITING, UNSPECIFIED Status: Acute (2) C. difficile colitis Code(s): A04.72 - ENTEROCOLITIS D/T CLOSTRIDIUM DIFFICILE, NOT SPCF RECUR Status: Acute (3) COPD (chronic obstructive pulmonary disease) Status: Acute Qualifiers: Emphysema type: unspecified (4) CAD (coronary artery disease) Code(s): I25.10 - ATHSCL HEART DISEASE OF [place] CORONARY ARTERY W/O ANG PCTRS Status: Acute Qualifiers: Coronary Disease-Associated Artery/Lesion type: [place] artery [place] vs. transplanted heart: [place] heart (5) HTN (hypertension) Code(s): I10 - ESSENTIAL (PRIMARY) HYPERTENSION Status: Chronic Qualifiers: Hypertension type: essential hypertension Qualified Code(s): I10 - Essential (primary) hypertension - Plan cont antiemetics , consult GI cont iv fluids no diarrhea in several days, colitis in remission apparently
[2018-11-25] MEDS: traZODone HCl 50 MG TAB PO SCH (22:05)
[2018-11-26 05:31] LABS: Amphetamine Not Detected (NotDetected); Barbiturates Screen Not Detected (NotDetected); Benzodiazepine Screen Not Detected (NotDetected); Cocaine Metabolite Screen Not Detected (NotDetected); Medtox Control Line Valid? VALID (VALID); Medtox Reader # READER 4; Methadone Not Detected (NotDetected); Methamphetamine Not Detected (NotDetected); Opiate Screen Detected (NotDetected); Oxycodone Screen Not Detected (NotDetected); Phencyclidine (PCP) Not Detected (NotDetected); THC/Cannabinoid Screen Not Detected (NotDetected); Tricyclic Screen Not Detected (NotDetected)
[2018-11-26] MEDS: Pregabalin 50 MG CAP PO SCH ×3 (08:32→20:31)
[2018-11-26] MEDS: Enoxaparin Sodium 40 MG/0.4 ML SYRINGE SC SCH (08:33)
[2018-11-26] MEDS: tiZANidine HCl 4 MG TAB PO SCH ×2 (08:33→20:31)
[2018-11-26] MEDS: Famotidine 20 MG TAB PO SCH (08:33)
[2018-11-26] MEDS: Acetaminophen/Codeine 30-300mg Tablet PO PRN ×2 (08:33→20:33)
--- NOTE | 2018-11-26 08:52 | CON ---
DATE OF CONSULTATION: 11/25/2018 CHIEF COMPLAINT: Nausea and vomiting. HISTORY OF PRESENT ILLNESS: Ms. Funk is a 68-year-old woman who started with nausea, vomiting, diarrhea in September. She was ultimately admitted to the hospital on October 23 and was found to be positive for Clostridium difficile at that time. She was discharged on 10/25/2018 with oral vancomycin. She was doing better by that time. She had a gap in her treatment after that, because she was unable to fill her vancomycin and bounced back to the hospital on 10/28/2018. She was restarted on vancomycin and had initial improvement, was discharged home with a 14-day course of vancomycin orally 4 times daily. She initially did better, but has since had recurrence of nausea and vomiting, diarrhea for several days and readmitted on 11/23/2018. She has had no stool output since admission, not able to produce a sample to recheck C. diff. She has had persistent nausea and threw up a small amount this morning. She has tolerated some solid food later in the day today. She has had no fever with this. She has had some abdominal bloating and mild distention and pressure type abdominal discomfort in the lower abdomen. Had no blood in the stool. She has lost 10 pounds over the past few . No chest pain or shortness of breath. No certain foods seem to exacerbate symptoms more than others. She has been noted to have urine toxicology screen positive for cannabis multiple times in 2017, most recently in October 24, 2018. She told me today that she has not smoked marijuana for the last 3 months. However, tox screen is not consistent with that. She did have an upper and lower endoscopy back in [address] Vang. The colonoscopy was negative except for a small hyperplastic polyp and diverticulosis. The upper endoscopy was negative except gastritis with negative biopsies for Helicobacter pylori. She does take Tylenol with codeine 3 times a day for chronic back pain. PAST MEDICAL HISTORY: COPD, hypertension, rheumatoid arthritis, osteoarthritis, chronic back pain, fibromyalgia, restless legs syndrome, polycystic kidney disease. PAST SURGICAL HISTORY: Hysterectomy, knee surgery, coronary artery bypass graft and valve replacement. FAMILY HISTORY: Negative for GI malignancy. SOCIAL HISTORY: No alcohol. She states she has not used marijuana for the last 3 months. Quit smoking a month ago. ALLERGIES: SULFA. MEDICATIONS: Prior to admission: 1. Trazodone. 2. Tizanidine. 3. Spiriva inhaler. 4. Ranitidine. 5. Lyrica. 6. Ondansetron. 7. Lisinopril. 8. DuoNeb. 9. Escitalopram. 10. Amlodipine. 11. Albuterol. 12. Acetaminophen with codeine. In the hospital, she is takin. Enoxaparin. 2. Famotidine. 3. Lyrica. 4. Tizanidine. 5. Trazodone. REVIEW OF SYSTEMS: Negative x10 systems reviewed except as stated in the history of present illness. PHYSICAL EXAMINATION: VITAL SIGNS: Temperature 98.1, pulse 54, blood pressure 154/55. GENERAL: She is in no acute distress. Alert and oriented x3. EYES: Have no scleral icterus. Oropharynx is clear without lesions. No cervical or supraclavicular lymphadenopathy. LUNGS: Clear to auscultation bilaterally. HEART: Regular rate and rhythm without murmur. ABDOMEN: Soft. She has mild tenderness in the left lower abdomen. Her abdomen is very slightly distended. Bowel sounds are present. EXTREMITIES: No lower extremity edema. NEUROLOGIC: Cranial nerves are grossly intact. LABORATORY DATA: White blood cell count 4.1, hemoglobin 10.5, platelets 154, creatinine 0.76. IMPRESSION: 1. Persistent nausea, vomiting all the way up until this morning. This appears to have a started with Clostridium difficile colitis at the end of September. Her nausea and vomiting did initially improve with treatment of the Clostridium difficile. However, her symptoms have since returned. She has had no bowel movement now for several days . Without more significant distention and abdominal symptoms, I would doubt that she has ileus from Clostridium difficile. Nonetheless, when she is able to produce a sample, we will need to check a stool sample. She could have medication side effects regarding the chronic opioids and dysmotility associated with that. Also raised by the admitting physician is possibility of opioid withdrawal as she may have been missing doses due to the nausea and vomiting. Also is a question of chronic cannabis use, consideration of cannabis hyperemesis syndrome. However, given the diarrhea and positive Clostridium difficile, hyperemesis seems less likely. No other obvious source from medication standpoint. RECOMMENDATIONS: 1. We will continue with supportive care with fluids and antiemetics as needed. 2. Currently, she is on H2 alex. 3. We will plan for upper endoscopy tomorrow to rule out gastric or duodenal mucosal process related to her nausea. 4. Recheck a urine tox screen as the patient states that she has been off cannabis recently. 5. Await stool sample for C. diff, however, the degree of abdominal distention and discomfort really would not be consistent with a more severe ileus from C. diff. She has had no stool output for several days now. I doubt that C. diff is primary cause of her symptoms currently. Job ID: [id number]
--- NOTE | 2018-11-26 11:27 | PDOC.HOSPP ---
- Subjective Encounter Date: 11/26/18 Encounter Time: 11:25 Subjective: still nauseated, cant eat - Objective Vital Signs & Weight: Vital Signs (12 hours) Temp Pulse Resp BP BP Pulse Ox 11/26/18 08:00 97.4 F L 56 L 18 171/75 H 96 11/26/18 07:11 99 11/26/18 04:00 97.7 F 52 L 20 143/78 H 99 11/25/18 23:36 98.4 F 61 20 128/71 97 Weight Weight 94 lb 12.78 oz Result Diagrams: 11/25/18 06:21 11/25/18 06:21 ROS - Medication Medications: Active Medications Generic Name Dose Route Start Last Admin Trade Name Freq PRN Reason Stop Dose Admin Acetaminophen/Codeine Phosphate 1 tab 11/23/18 19:36 11/26/18 08:33 Tylenol #3 PO 1 tab Q6H PRN Administration Pain 4-6 Enoxaparin Sodium 40 mg 11/24/18 09:00 11/26/18 08:33 Lovenox SC Not Given 0900 CESARIO Famotidine 20 mg 11/23/18 21:00 11/26/18 08:33 Pepcid PO 20 mg BID CESARIO Administration Hydralazine HCl 10 mg 11/23/18 19:35 11/25/18 19:39 Apresoline SLOW IVP 10 mg Q4H PRN Administration SBP > 180 and HR < 70 Sodium Chloride 1,000 mls @ 75 mls/hr 11/23/18 19:45 11/25/18 19:42 Normal Saline 0.9% IV 1,000 mls .[id number] CESARIO Administration Ondansetron HCl 4 mg 11/23/18 19:36 11/25/18 17:28 Zofran IVP 4 mg Q6H PRN Administration Nausea/Vomiting Pregabalin 200 mg 11/23/18 21:00 11/26/18 08:32 Lyrica PO 200 mg TID CESARIO Administration Promethazine HCl 25 mg 11/24/18 12:56 11/24/18 13:06 Phenergan PO 25 mg Q6H PRN Administration Nausea/Vomiting Sodium Chloride 10 ml 11/24/18 21:00 11/26/18 08:33 Flush - Normal Saline IVF 10 ml Q12HR CESARIO Administration Tizanidine HCl 4 mg 11/23/18 21:00 11/26/18 08:33 Zanaflex PO 4 mg BID CESARIO Administration Trazodone HCl 100 mg 11/23/18 21:00 11/25/18 22:05 Desyrel PO 100 mg HS CESARIO Administration - Exam awake alert Neck: no JVD Heart: RRR, no murmur Respiratory: CTAB Gastrointestinal: soft, non-tender, normal bowel sounds Extremities: no edema Hosp A/P (1) Nausea & vomiting Code(s): R11.2 - NAUSEA WITH VOMITING, UNSPECIFIED Status: Acute Qualifiers: Vomiting type: unspecified Vomiting Intractability: unspecified Qualified Code(s): R11.2 - Nausea with vomiting, unspecified (2) C. difficile colitis Code(s): A04.72 - ENTEROCOLITIS D/T CLOSTRIDIUM DIFFICILE, NOT SPCF RECUR Status: Acute (3) COPD (chronic obstructive pulmonary disease) Status: Acute Qualifiers: Emphysema type: unspecified (4) CAD (coronary artery disease) Code(s): I25.10 - ATHSCL HEART DISEASE OF [place] CORONARY ARTERY W/O ANG PCTRS Status: Acute Qualifiers: Coronary Disease-Associated Artery/Lesion type: [place] artery [place] vs. transplanted heart: [place] heart (5) HTN (hypertension) Code(s): I10 - ESSENTIAL (PRIMARY) HYPERTENSION Status: Chronic Qualifiers: Hypertension type: essential hypertension Qualified Code(s): I10 - Essential (primary) hypertension - Plan cont antiemetics , consult GI cont iv fluids no diarrhea in several days, colitis in remission apparently antihypertensives iv prn EGD today , hopefully
[2018-11-26] MEDS: Ondansetron PF 4 MG/2 ML Vial IVP PRN (11:29)
[2018-11-26] MEDS: Sodium Chloride 0.9% 1,000 ML IV SCH (15:05)
[2018-11-26] MEDS ORDERED: PROPOFOL 20 ML ONE (16:51)
[2018-11-26] MEDS ORDERED: Ketamine 50 MG/ML (10ML VIAL) ONE (16:51)
[2018-11-26] MEDS ORDERED: Pantoprazole 40 MG VIAL IVP SCH (18:00)
[2018-11-26] MEDS ORDERED: Sodium Chloride 0.9% (PF) 10 ML VIAL FS PRN (18:03)
[2018-11-26] MEDS: traZODone HCl 50 MG TAB PO SCH (20:31)
--- NOTE | 2018-11-27 00:03 | OP ---
DATE OF PROCEDURE: 11/26/2018 TITLE OF PROCEDURE: EGD with biopsy. PREPROCEDURE DIAGNOSES: 1. Persistent nausea, vomiting. 2. Weight loss. 3. Recent history of Clostridium difficile infection, treated. POSTPROCEDURE DIAGNOSES: 1. Exam to second portion of duodenum. 2. Small 2 cm sliding hiatal hernia, biopsied. 3. No evidence of acute esophageal, gastric, or duodenal ulcer. 4. Mild antral gastritis, biopsied. 5. Normal duodenum. PROCEDURE: Written informed consent was obtained. The patient was brought to the endoscopy suite. Total intravenous anesthesia was administered by Dr. Cates and associates. The patient was placed in the left lateral decubitus position. A bite block was inserted into the mouth. A Pentax video diagnostic gastroscope was introduced into the oral cavity and the esophagus was carefully intubated. The gastroscope was advanced under direct visualization to the 2nd portion of the duodenum. Endoscopic findingsrevealed a 2 cm sliding hiatal hernia with no associated esophageal ulcer or acute esophageal erosions. Biopsies were obtained at 35 cm for histology. The stomach was then entered and carefully examined. This included a retroflex view of the cardia and fundus, which again demonstrated a sliding hiatal hernia. Mild pre-pyloric and antral erythema were identified without associated ulceration. Some pylorospasm was encountered during the exam, but the duodenum was subsequently intubated. There was no evidence of duodenal ulcer or duodenitis. The duodenum from the bulb to the 2nd portion appeared intact with grossly normal motility. The stomach was then decompressed as the endoscope was completely removed from the patient. She was transferred to the Day Stay surgery area for postprocedure monitoring. There were no immediate complications. RECOMMENDATIONS: 1. Await pathology results. 2. Resume previous diet. 3. Continue antiemetics p.r.n. 4. Initiate acid suppressive therapy. 5. Continue close clinical monitoring and supportive care. If the patient continues to tolerate her regular diet, anticipate discharge home soon. Job ID: [id number] [facility]
[2018-11-27] MEDS: Sodium Chloride 0.9% 1,000 ML IV SCH (03:33)
[2018-11-27] MEDS: Enoxaparin Sodium 40 MG/0.4 ML SYRINGE SC SCH (08:52)
[2018-11-27] MEDS: Pregabalin 50 MG CAP PO SCH (08:52)
[2018-11-27] MEDS: tiZANidine HCl 4 MG TAB PO SCH (08:53)
[2018-11-27] MEDS: Acetaminophen/Codeine 30-300mg Tablet PO PRN (08:53)
[2018-11-27] MEDS ORDERED: Pantoprazole 40 MG VIAL IVP SCH (09:00)
[2018-11-27 11:36] VITALS: BP 164/66; TEMP 97.9
--- NOTE | 2018-11-27 11:37 | DIS ---
DATE OF ADMISSION: 11/23/2018 DATE OF DISCHARGE: 11/27/2018 PRIMARY CARE PROVIDER: Dr. Juan Navarrete. FINAL DIAGNOSES: 1. Nausea and vomiting. 2. History of Clostridium difficile colitis. 3. Chronic obstructive pulmonary disease. 4. Coronary artery disease without angina pectoris. 5. Hypertension. DISCHARGE MEDICATIONS: 1. Lisinopril 20 mg a day. 2. DuoNeb 1 inhalation q.4 h. p.r.n. 3. Lexapro 20 mg a day. 4. Norvasc 2.5 mg a day. 5. ProAir RespiClick 1 inhalation q.4 hours. 6. Trazodone 100 mg a day. 7. Tizanidine 4 mg b.i.d. 8. Spiriva HandiHaler 1 inhalation daily. 9. Lyrica 200 mg 3 times a day. 10. Protonix 40 mg a day. 11. Zofran oral dissolving tablet 4 mg q.6 hours. ALLERGIES: NO KNOWN DRUG ALLERGIES. CODE STATUS: Full. DIET: Heart healthy. PENDING AT THE TIME OF DISCHARGE: Nothing. CONSULTATIONS: Dr. Zachary Mac, Gastroenterology. PROCEDURES: EGD, 11/26/2018, Dr. Cecilia Castro. HOSPITAL COURSE: The patient admitted with continuing nausea, stating she was unable to eat. This continued until she had an EGD last night, which was unremarkable except for some mild antral gastritis. Since the EGD, she has eaten well, is ready to go home. She is being discharged home. PERTINENT LABORATORY DATA: CBC showed a white count of 3.8, hemoglobin 14.6, and platelet count of 234,000. Comprehensive metabolic profile was unremarkable except for potassium of 3.4. Urine was clear. Toxicology revealed only opiates. She was taking Tylenol No. 3 prior to admission. DISCHARGE INSTRUCTIONS: She has been instructed to see PCP in several days for followup. Job ID: [id number]
== END 2018-11-27 13:10 | disposition home or self-care (01) | DRG 392 ==
LOC: ERS 10:05 → OBSVTOIN 15:24 → T4-B 15:24 → ERS 16:52
PROVIDERS: ADMIT Internal Medicine; ATTEND Internal Medicine
PROC: 0DB38ZX Excision of Lower Esophagus, Via Natural or Artificial Opening Endoscopic, Diagnostic (ICD-10-PCS; principal; 2018-11-26)
PROC: 0DB78ZX Excision of Stomach, Pylorus, Via Natural or Artificial Opening Endoscopic, Diagnostic (ICD-10-PCS; 2018-11-26)
DX: K29.60 Other gastritis without bleeding (principal); Q61.3 Polycystic kidney, unspecified; I25.10 Atherosclerotic heart disease of native coronary artery without angina pectoris; K44.9 Diaphragmatic hernia without obstruction or gangrene; J44.9 Chronic obstructive pulmonary disease, unspecified; I10 Essential (primary) hypertension; M06.9 Rheumatoid arthritis, unspecified; G89.29 Other chronic pain; M79.7 Fibromyalgia; G25.81 Restless legs syndrome; Z88.2 Allergy status to sulfonamides; Z90.710 Acquired absence of both cervix and uterus; Z95.1 Presence of aortocoronary bypass graft
CPT/HCPCS: 36415; 74018; 80048; 80053; 80306; 81003; 83605; 84439; 84443; 85025; 88305; 88312; 88313; 96361; 96365; 96375; 96376; C9113; J0360; J1650; J2270; J2405; J2704; J3370; Q0169

== ENCOUNTER 2019-02-07 10:53 | Emergency (ER) | payer MEDICARE, OTHER ==
[2019-02-07] MEDS ORDERED: Ondansetron PF 4 MG/2 ML Vial ONE (11:13)
[2019-02-07] MEDS ORDERED: ISOVUE-370 76%-LOCM 1 ML ONE (11:39)
[2019-02-07 12:03] LABS: #Eosinphils 0.1 thou/uL (0.0-0.7); #Lymphocytes 1.1 thou/uL (1.20-3.40); #Monocytes 0.3 thou/uL (0.11-0.59); #Neutrophils 3.9 thou/uL (1.40-6.50); %Basophils 0.8 % (0.0-1.0); %Eosinophils 1.5 % (0.0-10.0); %Monocytes 6.2 % (0.0-10.0); %Neutrophils 70.6 % (42.0-75.0); Hemoglobin 11.7 g/dL (12.0-16.0); Mean Corpuscular HGB CONC 33.7 g/dL (32.0-36.0); Mean Corpuscular Hemoglobin 32.4 pg (27.0-31.0); Mean Corpuscular Volume 96.3 fL (78.0-98.0); Mean Platelet Volume 7.1 fL (7.4-10.4); Platelet Count 219 thou/uL (130-400); Red Blood Cell (RBC) Count 3.61 mill/uL (4.20-5.40); White Blood Cell (WBC) Count 5.5 thou/uL (4.8-10.8)
[2019-02-07 12:22] LABS: Bacteria/HPF None Seen HPF (None Seen); Bilirubin Negative (Negative); Blood, Urine Negative (Negative); Clarity Clear (Clear); Glucose, Urine (Dipstick) Normal (Negative); Leukocyte Negative Leu/uL (Negative); Nitrite Negative (Negative); Protein, Urine (Dipstick) 30 mg/dL (Neg-Trace); RBC/HPF 0-3 HPF (0-3); Squamous Epithelial 0-3 HPF (0-3); Urobilinogen Normal mg/dL (Less than 2); WBC/HPF 0-3 HPF (0-3)
[2019-02-07 12:22] LABS: ALT (SGPT) 16 U/L (8-55); AST (SGOT) 16 U/L (5-34); Alkaline Phosphatase 102 U/L (40-110); Anion Gap 13 mmol/L (10-20); BUN (Urea Nitrogen) 25 mg/dL (9.8-20.1); Bilirubin, Total 0.5 mg/dL (0.2-1.2); Calc. Creatinine Clearance 0 mL/min (70-130); Calcium 8.6 mg/dL (7.8-10.44); Carbon Dioxide 24 mmol/L (23-31); Chloride 103 mmol/L (98-107); Estimated GFR-MDRD 70; Globulin 2.6 g/dL (2.4-3.5); Glucose 103 mg/dL (80-115); Lipase 35 U/L (8-78); Potassium 3.7 mmol/L (3.5-5.1); Protein, Total 6.6 g/dL (6.0-8.3); Sodium 136 mmol/L (136-145)
[2019-02-07] MEDS ORDERED: Ketorolac Tromethamine 30 MG/ML VIAL ONE (13:00)
--- NOTE | 2019-02-07 13:37 | CT ---
CT ABDOMEN AND PELVIS WITH IV CONTRAST: Date: 02/07/19 HISTORY: Nausea, vomiting, diarrhea, and abdominal pain. COMPARISON: 10/23/18. FINDINGS: There are minimal dependent changes in the lung bases. The liver, spleen, pancreas, and adrenal gland s are normal. No calcified gallstones are seen. There is edema in the wall of the gallbladder. No pily e air is seen. There is a small amount of free fluid in the abdomen and pelvis. There is a tiny focus of hyperdensity in the dependent portion of the pelvic fluid. The possibility of this represent acut e hemorrhage cannot be excluded. There are nonobstructing bilateral renal calculi and parapelvic cysts. There are vascular calcificati ons without evidence of aneurysmal dilatation of the abdominal aorta. There are degenerative changes in the spine. There is thickening of the hendrix of the small bowel. There is colonic diverticulosis. IMPRESSION: 1. Small amount of free fluid in the abdomen and pelvis with a tiny focus of hyperdensity suspicious for acute hemorrhage. 2. Enteritis. 3. Gallbladder wall thickening/edema. Evaluation with ultrasound would be helpful. 4. Nonobstructing bilateral renal calculi and parapelvic cysts. 5. Colonic diverticulosis. Discussed over the telephone with ER physician, Dr. Swapna Marina, at 1251 hours. CODE CR. POS: ALFREDO
== END 2019-02-07 14:13 | disposition home or self-care (01) ==
LOC: ERS 10:53
DX: R11.2 Nausea with vomiting, unspecified (principal); R19.7 Diarrhea, unspecified; R10.9 Unspecified abdominal pain; R10.817 Generalized abdominal tenderness; I10 Essential (primary) hypertension; M06.9 Rheumatoid arthritis, unspecified; F41.9 Anxiety disorder, unspecified; F32.9 Major depressive disorder, single episode, unspecified; F17.210 Nicotine dependence, cigarettes, uncomplicated; Z79.899 Other long term (current) drug therapy
CPT/HCPCS: 51701; 74177; 80053; 81003; 81015; 83690; 85025; 93005; 96361; 96372; 96374; 96375; A4353; J0500; J1885; J2405

== ENCOUNTER 2019-03-15 12:46 | Emergency (ER) | payer MEDICARE, OTHER ==
[2019-03-15 14:04] LABS: #Lymphocytes 1.4 thou/uL (1.20-3.40); #Monocytes 0.2 thou/uL (0.11-0.59); #Neutrophils 2.8 thou/uL (1.40-6.50); %Basophils 0.5 % (0.0-1.0); %Eosinophils 0.7 % (0.0-10.0); %Lymphocytes 31.8 % (21.0-51.0); %Monocytes 4.6 % (0.0-10.0); %Neutrophils 62.4 % (42.0-75.0); Hemoglobin 11.9 g/dL (12.0-16.0); Mean Corpuscular HGB CONC 34.5 g/dL (32.0-36.0); Mean Corpuscular Hemoglobin 31.6 pg (27.0-31.0); Mean Corpuscular Volume 91.5 fL (78.0-98.0); Mean Platelet Volume 7.6 fL (7.4-10.4); Platelet Count 219 thou/uL (130-400); RBC Distribution Width 11.7 % (11.5-14.5); Red Blood Cell (RBC) Count 3.78 mill/uL (4.20-5.40); White Blood Cell (WBC) Count 4.5 thou/uL (4.8-10.8)
--- NOTE | 2019-03-15 14:15 | RAD ---
CHEST 1 VIEW: INDICATION: Cough, congestion, and sore throat. COMPARISON: Prior exam dated 10/23/2018. FINDINGS: There is healed deformity involving the proximal right humerus. Aortic valve replacement and midline sternotomy change are stable. Mild cardiomegaly is stable. Lungs are clear. No pleural effusion o r pneumothorax is evident. IMPRESSION: No acute cardiopulmonary abnormality. POS: CET
[2019-03-15 14:24] LABS: ALT (SGPT) 13 U/L (8-55); AST (SGOT) 13 U/L (5-34); Albumin 4.3 g/dL (3.4-4.8); Alkaline Phosphatase 131 U/L (40-110); Anion Gap 15 mmol/L (10-20); BUN (Urea Nitrogen) 17 mg/dL (9.8-20.1); Bilirubin, Total 0.4 mg/dL (0.2-1.2); Calc. Creatinine Clearance 0 mL/min (70-130); Calcium 9.7 mg/dL (7.8-10.44); Carbon Dioxide 23 mmol/L (23-31); Chloride 104 mmol/L (98-107); Estimated GFR-MDRD 58; Globulin 3.1 g/dL (2.4-3.5); Glucose 89 mg/dL (80-115); Potassium 4.1 mmol/L (3.5-5.1); Protein, Total 7.4 g/dL (6.0-8.3); Sodium 138 mmol/L (136-145)
[2019-03-15] MEDS ORDERED: cloNIDine 0.1 MG TAB ONE (15:24)
[2019-03-15 15:36] LABS: Acetaminophen Less than 6.0 mcg/mL (10.0-30.0); Alcohol Less than 10 mg/dL (Less than 10); Salicylate Less than 8.0 mg/dL (15.0-30.0)
[2019-03-15] MEDS ORDERED: Ondansetron ODT 4 MG TAB ONE (15:38)
[2019-03-15 15:59] LABS: Bilirubin Negative (Negative); Blood, Urine Negative (Negative); Clarity Clear (Clear); Glucose, Urine (Dipstick) Normal (Negative); Leukocyte Negative Leu/uL (Negative); Nitrite Negative (Negative); Protein, Urine (Dipstick) Negative (Neg-Trace); Urobilinogen Normal mg/dL (Less than 2)
[2019-03-15 16:11] LABS: Amphetamine Not Detected (NotDetected); Barbiturates Screen Not Detected (NotDetected); Benzodiazepine Screen Not Detected (NotDetected); Cocaine Metabolite Screen Not Detected (NotDetected); Medtox Control Line Valid? VALID (VALID); Medtox Reader # READER 1; Methadone Not Detected (NotDetected); Methamphetamine Not Detected (NotDetected); Opiate Screen Detected (NotDetected); Oxycodone Screen Not Detected (NotDetected); Phencyclidine (PCP) Not Detected (NotDetected); THC/Cannabinoid Screen Not Detected (NotDetected); Tricyclic Screen Not Detected (NotDetected)
== END 2019-03-16 01:10 ==
LOC: ERS 12:46
DX: F32.9 Major depressive disorder, single episode, unspecified (principal); F55.8 Abuse of other non-psychoactive substances; I10 Essential (primary) hypertension; M19.90 Unspecified osteoarthritis, unspecified site; M06.9 Rheumatoid arthritis, unspecified; F41.9 Anxiety disorder, unspecified; F17.210 Nicotine dependence, cigarettes, uncomplicated; Z79.899 Other long term (current) drug therapy; Z79.891 Long term (current) use of opiate analgesic
CPT/HCPCS: 36415; 71045; 80053; 80306; 80307; 81003; 83880; 84443; 84484; 85025; 85379; 93005; 94760; Q0162

== ENCOUNTER 2019-10-08 10:09 | Observation (INO) | payer MEDICARE, OTHER ==
[2019-10-08] MEDS ORDERED: Morphine 4 MG/ML VIAL ONE ×2 (11:01→13:48)
[2019-10-08] MEDS ORDERED: Aspirin Chewable 81 MG TAB ONE (11:15)
--- NOTE | 2019-10-08 11:16 | RAD ---
EXAM: Single view of the chest HISTORY: Chest pain COMPARISON: 03/15/2019 FINDINGS: Single view of the chest shows a normal sized cardiomediastinal silhouette. The patient is status post aortic valve repair. Atherosclerotic calcifications are seen in the aorta. There is no evidence of consolidation, mass, or pleural effusion. The bones are unremarkable. IMPRESSION: No evidence of acute cardiopulmonary disease
[2019-10-08 11:18] LABS: Hemoglobin 9.8 g/dL (12.0-16.0); Mean Corpuscular HGB CONC 33.3 g/dL (32.0-36.0); Red Blood Cell (RBC) Count 3.18 mill/uL (4.20-5.40); White Blood Cell (WBC) Count 4.2 thou/uL (4.8-10.8)
[2019-10-08 11:34] LABS: #Basophils 0.1 thou/uL (0.0-0.2); #Eosinphils 0.1 thou/uL (0.0-0.7); #Lymphocytes 1.6 thou/uL (1.20-3.40); #Monocytes 0.3 thou/uL (0.11-0.59); #Neutrophils 2.2 thou/uL (1.40-6.50); %Basophils 1.3 % (0.0-1.0); %Eosinophils 2.6 % (0.0-10.0); %Monocytes 6.1 % (0.0-10.0); %Neutrophils 52.1 % (42.0-75.0); Mean Platelet Volume 8.6 fL (7.4-10.4); Platelet Count 118 thou/uL (130-400); Platelet Morphology Comment Appears Decreased; RBC Distribution Width 11.9 % (11.5-14.5); RBC Morphology Normal
[2019-10-08 11:41] LABS: ALT (SGPT) 30 U/L (8-55); AST (SGOT) 51 U/L (5-34); Albumin 3.9 g/dL (3.4-4.8); Alkaline Phosphatase 184 U/L (40-110); Anion Gap 15 mmol/L (10-20); BUN (Urea Nitrogen) 20 mg/dL (9.8-20.1); Bilirubin, Total Less than 0.2 mg/dL (0.2-1.2); CK (CPK) 214 U/L (29-168); Calc. Creatinine Clearance 0 mL/min (70-130); Calcium 8.9 mg/dL (7.8-10.44); Carbon Dioxide 24 mmol/L (23-31); Chloride 106 mmol/L (98-107); Estimated GFR-MDRD 44; Globulin 2.9 g/dL (2.4-3.5); Glucose 73 mg/dL (83-110); Potassium 5.1 mmol/L (3.5-5.1); Protein, Total 6.8 g/dL (6.0-8.3); Sodium 140 mmol/L (136-145)
[2019-10-08 12:00] LABS: CKMB 3.7 ng/mL (0-6.6)
[2019-10-08 12:15] LABS: Bacteria/HPF 1+ HPF (None Seen); Bilirubin Negative (Negative); Blood, Urine Negative (Negative); Clarity Clear (Clear); Glucose, Urine (Dipstick) Normal (Negative); Leukocyte 75 Leu/uL (Negative); Nitrite Negative (Negative); Protein, Urine (Dipstick) 10 mg/dL (Neg-Trace); RBC/HPF 0-3 HPF (0-3); Urobilinogen Normal mg/dL (Less than 2)
[2019-10-08] MEDS ORDERED: Nitroglycerin 2% Ointment 1 INCH/1 GM Packet ONE (12:59)
--- NOTE | 2019-10-08 13:12 | PDOC.FPRHP ---
- History of Present Illness Chief Complaint: Chest pain History of Present Illness: This is a 69 yo female with a pmh of HTN, HFpEF, hx of aortic stenosis with pig valve replacement in 2015, CAD with 1 vessel CABG in 2015, DJD, anxiety, depression, GERD, COPD who presents to the ER with a cc of chest pain. Pt reports a week history of chest pain that has not resolved. She states she did not want to come here but EMS recommended coming in. She states she was not doing anything at the onset of the pain. She states this pain feels like it did when she had her first heart attack 5 years ago. She denies SOB. She does reports dizziness, nausea, palpitations, fatigue. She reports the pain is left sternal border. She states that the pain is sharp in nature and does not radiate to her back. She state her pain is a 9/10 right now and stabbing. She states it has been this way all week. She reports orthopnea and paroxysmal nocturnal dyspnea. Pt states she recently got off of codeine last April and does not want to take any norco going forward. Dr. Palmer is cardiology Dr. Melendez CV surgery Pt has been admitted to the hospital 4 times last year. 3 of those times were for C diff. Once was for COPD. She currently denies any diarrhea and denies any medication for COPD. ED Course: Aspirin 324mg Morphine 4mg Nitro 1 inch - Allergies/Adverse Reactions Allergies Allergy/AdvReac Type Severity Reaction Status Date / Time No Known Allergies Allergy Verified 07/06/19 13:57 - Home Medications Medication Instructions Recorded Confirmed Type tiZANidine HCl [Zanaflex] 4 mg PO Q6HR 04/12/16 10/08/19 History Escitalopram Oxalate [Lexapro] 20 mg PO DAILY #3 10/30/18 10/08/19 Rx Pregabalin [Lyrica] 1 cap PO TID #9 capsule 10/30/18 10/08/19 Rx traZODone HCl [Trazodone HCl] 1 tab PO HS #3 tab 10/30/18 10/08/19 Rx Pantoprazole [Protonix] 40 mg PO DAILY #30 pk 11/27/18 10/08/19 Rx Lisinopril [Zestril] 10 mg PO DAILY 10/08/19 10/08/19 History - History PMHx:Chronic back pain, HTN, DJD, RA, polycystic kidney disease, COPD, GERD PSHx: Heart cath 2015, Left knee arthroplasty, CABG RCA and pig aortic valve replacement 2014 FHx: Non-contributory Social: Quit smoking May 02 pack years, occasional alcohol consumption, denies drug use - Review of Systems General: reports: fatigue. denies: fever/chills, weight/appetite/sleep changes , night sweats Eyes: denies: eye pain, vision changes ENT: denies: nasal congestion, rhinorrhea Respiratory: reports: shortness of breath, exercise intolerance. denies: cough , congestion Cardiovascular: reports: chest pain, palpitation, edema, orthopnea Gastrointestinal: reports: nausea. denies: vomiting, diarrhea, constipation, abdominal pain Genitourinary: denies: incontinence, dysuria, discharge Skin: denies: rashes, lesions, jaundice Musculoskeletal: reports: pain, tenderness Neurological: denies: numbness, syncope, seizure, weakness Psychological: reports: anxiety, depression - Vital signs BP: 198/93 HR: 67 RR: 16 Tmax: 98.3 Pox: 100% on ra Wt: 48 kg - Physical Exam Constitutional: NAD, awake, alert and oriented, well developed HEENT: normocephalic and atraumatic, PERRLA, EOMI, grossly normal vision, grossly normal hearing, MMM Neck: FROM, trachea midline, other (JVD at 45 degrees) Chest: other (Tenderness to palpation, same pain as before) Heart: RRR, normal S1/S2, no murmurs/rubs/gallops, pulses present Lungs: no respiratory distress, good air movement, no retractions, other ( bibasilar crackles) Abdomen: soft, non-tender, bowel sounds present, no masses/distention Musculoskeletal: normal structure, normal tone, ROM grossly normal Neurological: CN II-XII intact, normal sensation Skin: capillary refill <2 seconds, other (Ulcer on left buttocks) Heme/Lymphatic: no unusual bruising or bleeding, no purpura Psychiatric: normal mood and affect, good judgment and insight FMR H&P: Results - Labs Result Diagrams: 10/08/19 10:45 10/08/19 10:45 Lab results: WBC 4.2 thou/uL (4.8-10.8) L 10/08/19 10:45 Hgb 9.8 g/dL (12.0-16.0) L 10/08/19 10:45 Hct 29.5 % (36.0-47.0) L 10/08/19 10:45 MCV 93.0 fL (78.0-98.0) 10/08/19 10:45 Plt Count 118 thou/uL (130-400) L 10/08/19 10:45 Neutrophils % 52.1 % (42.0-75.0) 10/08/19 10:45 Sodium 140 mmol/L (136-145) 10/08/19 10:45 Potassium 5.1 mmol/L (3.5-5.1) 10/08/19 10:45 Chloride 106 mmol/L (98-107) 10/08/19 10:45 Carbon Dioxide 24 mmol/L (23-31) 10/08/19 10:45 BUN 20 mg/dL (9.8-20.1) 10/08/19 10:45 Creatinine 1.21 mg/dL (0.6-1.1) H 10/08/19 10:45 Glucose 73 mg/dL (83-110) L 10/08/19 10:45 Calcium 8.9 mg/dL (7.8-10.44) 10/08/19 10:45 Total Bilirubin Less than 0.2 mg/dL (0.2-1.2) L 10/08/19 10:45 AST 51 U/L (5-34) H 10/08/19 10:45 ALT 30 U/L (8-55) 10/08/19 10:45 Alkaline Phosphatase 184 U/L (40-110) H 10/08/19 10:45 Creatine Kinase 214 U/L (29-168) H 10/08/19 10:45 CK-MB (CK-2) 3.7 ng/mL (0-6.6) 10/08/19 10:45 B-Natriuretic Peptide 689.4 pg/mL (0-100) H 10/08/19 11:02 Serum Total Protein 6.8 g/dL (6.0-8.3) 10/08/19 10:45 Albumin 3.9 g/dL (3.4-4.8) 10/08/19 10:45 Urine Ketones Negative mg/dL (Negative) 10/08/19 11:40 Urine Blood Negative (Negative) 10/08/19 11:40 Urine Nitrite Negative (Negative) 10/08/19 11:40 Ur Leukocyte Esterase 75 Itzel/uL (Negative) A 10/08/19 11:40 Urine RBC 0-3 HPF (0-3) 10/08/19 11:40 Urine WBC 4-6 HPF (0-3) A 10/08/19 11:40 Ur Squamous Epith Cells 4-6 HPF (0-3) A 10/08/19 11:40 Urine Bacteria 1+ HPF (None Seen) A 10/08/19 11:40 - EKG Interpretation EKG: NSR 78 bpm, LVH, QRS narrow - Radiology Interpretation Chest x-ray Status: image reviewed by me, report reviewed by me (No acute intrathoracic process) FMR H&P: A/P - Plan ACS rule out -Admit to tele -S/P aspirin, nitro, morphine, lasix -Trend troponins, first is 0.07 -EKG not suggestive of STEMI -CXR shows no acute process Hypertensive urgency -Nitro paste and lasix -PRN labetalol and hydralazine MJ -Cr 1.21 -On lasix -AM BMPs -Baseline Cr 0.6-0.9 HFpEF exacerbation -S/P lasix in the ER -Echo in 06/2018 shows EF 60-65, 1/3 diastolic dysfunction -Will repeat echo this stay HTN -Hold home lisinopril MSK chest pain -Morphine and tylenol for pain CAD -Starting Atorvastatin and aspirin GERD: Continue home meds COPD -Not on medications Anxiety/Depression -Continue home meds Code: Full Prophylaxis: SCDs, home protonix Family: none at bedside Fluids: SL Diet: HH, NPO at midnight with meds/water Disposition: DC in 1-2 days PCP: Dr. Navarrete [facility] Addendum - Attending - Attending Attestation Date/Time: 10/08/19 5112 I personally evaluated the patient and discussed the management with Dr. Jose. I agree with the History, Examination, Assessment and Plan documented above with any addition or exceptions noted below. Patient here for chest pain over the last week. She has history of CAD s/p CABG and aortic valve replacement. It does not appear she is medically compliant or optimized based on her current med list. Suspect her presentation is more of a HTN urgency and possible fluid overload associated with HFpEF exacerbation. Fortunately she is not hypoxic. Will work on BP control, diuresis, repeat TTE. ACS r/o with enzymes, possible stress testing if symptoms improve and enzymes downtrend. Possible cardiology consult pending clinical course.
[2019-10-08] MEDS ORDERED: Furosemide 40 MG/4 ML VIAL ONE (13:48)
[2019-10-08] MEDS ORDERED: Acetaminophen 325 MG TAB PO PRN ×2 (14:21→14:38)
[2019-10-08] MEDS ORDERED: Nitroglycerin 0.4 MG TAB (25 Tab Bottle) PO PRN (14:38)
[2019-10-08] MEDS ORDERED: Ondansetron ODT 4 MG TAB PO PRN (14:38)
[2019-10-08] MEDS ORDERED: hydrALAZINE 20 MG/ML VIAL SLOW IVP PRN (14:38)
[2019-10-08] MEDS ORDERED: Labetalol HCl 100 MG/20 ML VIAL SLOW IVP PRN (14:38)
[2019-10-08 15:16] VITALS: BMI 24.5
[2019-10-08] MEDS: Pregabalin 50 MG CAP PO SCH ×2 (15:38→20:57)
[2019-10-08 18:14] LABS: Troponin I 0.052 ng/mL (< 0.028)
[2019-10-08] MEDS: tiZANidine HCl 4 MG TAB PO SCH (18:17)
[2019-10-08] MEDS: Morphine 4 MG/ML VIAL SLOW IVP PRN (18:17)
[2019-10-08] MEDS ORDERED: Atorvastatin Calcium 40 MG TAB PO SCH (21:00)
[2019-10-08] MEDS ORDERED: traZODone HCl 50 MG TAB PO SCH (21:00)
[2019-10-09] MEDS: tiZANidine HCl 4 MG TAB PO SCH ×2 (00:20→05:43)
[2019-10-09] MEDS ORDERED: Furosemide 20 MG/2 ML VIAL SLOW IVP SCH (06:00)
--- NOTE | 2019-10-09 06:26 | PDOC.FM ---
- Subjective Subjective: Pt continues to note chest pain this morning. States it is worse with movement and palpation, denies worsening with exertion. Denies shortness of breath. Denies any recent cough. Does note a fall last week where she fell to her side but denies striking her chest. - Objective Vital Signs & Weight: Vital Signs (12 hours) Temp Pulse Resp BP Pulse Ox 10/09/19 04:00 97.1 F L 62 13 93/50 L 10/09/19 00:37 95 10/08/19 23:00 114/56 L 10/08/19 19:46 98.0 F 71 16 102/57 L 95 Weight Weight 24.579 kg I&O: 10/07/19 10/08/19 10/09/19 06:59 06:59 06:59 Intake Total 100 Balance 100 Result Diagrams: 10/09/19 07:22 10/09/19 07:22 Phys Exam - Physical Examination Constitutional: NAD Frail HEENT: moist MMs Respiratory: clear to auscultation bilateral Cardiovascular: RRR Homosystolic murmur Gastrointestinal: soft Musculoskeletal: no edema Neurological: moves all 4 limbs Psychiatric: normal affect, A&O x 3 Dx/Plan - Plan Plan: ACS rule out -Admit to tele -Hx significant for previous CABG and porcine aortic valve in 2014 -Troponins down trended x3 -Stress and echo today Hypothyroidism - New Dx -TSH: 5.68 -Levothyroxine 25mcg daily started Hypertensive urgency - resolved -BP 93/50 this morning MJ -Cr 1.21 -> 1.41 -On lasix, received in ED, likely source of Cr bump -AM BMPs -Baseline Cr 0.6-0.9 HFpEF exacerbation -BNP: 689 -S/P lasix in the ER, holding this morning -Echo in 06/2018 shows EF 60-65, 1/3 diastolic dysfunction -Repeat echo this stay HTN -Hold home lisinopril due to MJ and hypotension MSK chest pain -Morphine and tylenol for pain CAD -Starting Atorvastatin and aspirin GERD -Continue home meds COPD -Not on medications Anxiety/Depression -Continue home meds Code: Full Prophylaxis: SCDs, home protonix Fluids: SL Diet: NPO with meds/water Disposition: Inpatient tele for cardiac monitoring and ACS r/o. Stress and echo today. PCP: Dr. Navarrete [facility] Addendum - Attending - Attending Attestation Date/Time: 10/09/19 8730 I personally evaluated the patient and discussed the management with Dr. Washington. I agree with the History, Examination, Assessment and Plan documented above with any addition or exceptions noted below. Patient feeling improved. Suspect her chest pain is MSK in nature. She is pending stress test and echo due to her history and lack of follow up. Further mgmt pending those results.
[2019-10-09] MEDS ORDERED: tiZANidine HCl 4 MG TAB PO PRN (06:28)
[2019-10-09] MEDS ORDERED: Levothyroxine Sodium 25 MCG TAB PO SCH (06:45)
[2019-10-09 07:55] LABS: Anion Gap 13 mmol/L (10-20); BUN (Urea Nitrogen) 23 mg/dL (9.8-20.1); Calc. Creatinine Clearance 14 mL/min (70-130); Calcium 8.1 mg/dL (7.8-10.44); Carbon Dioxide 26 mmol/L (23-31); Chloride 104 mmol/L (98-107); Estimated GFR-MDRD 37; Glucose 102 mg/dL (83-110); Potassium 4.9 mmol/L (3.5-5.1); Sodium 138 mmol/L (136-145)
[2019-10-09 07:56] LABS: Iron 69 ug/dL (50-170); Iron Binding Capacity, Total 280 mcg/dL (265-497)
[2019-10-09 07:57] LABS: Mean Corpuscular HGB CONC 32.8 g/dL (32.0-36.0); Mean Corpuscular Hemoglobin 30.8 pg (27.0-31.0); Mean Corpuscular Volume 94.1 fL (78.0-98.0); Platelet Count 125 thou/uL (130-400); White Blood Cell (WBC) Count 5.1 thou/uL (4.8-10.8)
[2019-10-09 08:21] LABS: Ferritin 20.7 ng/mL (10-291)
[2019-10-09 08:56] LABS: Band 3 % (5-11); Eosinophils 4 % (0-10); Lymphocytes 28 % (21-51); MDiff Complete? YES; Monocytes 5 % (0-10); Neutrophil 59 % (42-75); Platelet Morphology Comment Appears Decreased; Polychromasia SLIGHT = 2-3 cells (100X) (0-2/hpf)
[2019-10-09] MEDS ORDERED: Escitalopram Oxalate 20 mg Tablet PO SCH (09:00)
[2019-10-09] MEDS ORDERED: Aspirin Chewable 81 MG TAB PO SCH (09:00)
[2019-10-09] MEDS ORDERED: Pantoprazole 40 MG GRANULES PACKET PO SCH (09:00)
[2019-10-09] MEDS: Morphine 4 MG/ML VIAL SLOW IVP PRN (09:29)
[2019-10-09] MEDS ORDERED: Regadenoson 0.4 MG/5 ML SYRINGE ONE (09:46)
[2019-10-09] MEDS: Pregabalin 50 MG CAP PO SCH ×2 (14:37→14:38)
[2019-10-09 14:43] VITALS: BP 125/55; TEMP 98.2
--- NOTE | 2019-10-09 15:24 | NM ---
EXAM: Nuclear medicine cardiac perfusion examination with ejection fraction HISTORY: Chest pain TECHNIQUE: Rest images: 9.2 mCi technetium 99m sestamibi Stress images: 32 mCi of technetium 9M sestamibi; Lexiscan COMPARISON: 09/14/2016 FINDINGS: Tomographic images: No fixed or reversible perfusion defects. Gated images: Normal wall motion and ejection fraction of greater than 70%. EDV: 58 mL LHR: 0.4 TID: 0.9 IMPRESSION: No evidence of ischemia
--- NOTE | 2019-10-09 21:41 | DIS ---
DATE OF ADMISSION: 10/08/2019 DATE OF DISCHARGE: 10/09/2019 ADMITTING ATTENDING: Claude Malone MD. DISCHARGE ATTENDING: Claude Malone MD. RESIDENT: Maurice Washington DO. CONSULTS: None. PROCEDURES: None. IMAGIN. Chest x-ray 10/08/2019. Impression: No evidence of acute cardiopulmonary disease. 2. Echocardiogram 10/09/2019. Impression: EF of 70% to 75%, EA flow reversal noted suggestive of diastolic dysfunction and mild left ventricular hypertrophy. Normal functioning bioprosthetic valve in aortic position. 3. Nuclear stress test 10/09/2019. Impression: No evidence of ischemia. PRIMARY DIAGNOSIS: Musculoskeletal chest pain. SECONDARY DIAGNOSES: 1. History of coronary artery bypass grafting. 2. Porcine aortic valve. 3. Hyperlipidemia. DISCHARGE MEDICATIONS: 1. Zanaflex 4 mg p.o. q.6 hours. 2. Escitalopram 20 mg daily. 3. Lyrica 200 mg t.i.d. 4. Trazodone 100 mg at bedtime. 5. Protonix 40 mg daily. 6. Zestril 10 mg daily. 7. Atorvastatin 40 mg at bedtime. HISTORY OF PRESENT ILLNESS AND HOSPITAL COURSE: This 69-year-old female who presented to the emergency department with complaints of chest pain. She stated the chest pain has been going on for about a week and has not resolved. The patient was seen by EMS and did not want to come in, but eventually did so under their recommendations. Initial workup in the ER revealed a troponin of 0.077, which was trended x3, which continued to trend downward. Due to the patient's history of CABG and porcine valve replacement in 2014, the patient was admitted to the hospital for further cardiac monitoring and ACS rule out. Following day, the patient had a nuclear stress test performed, which showed no ischemic defects. She also had an echocardiogram, which was stable from previous exam showing an EF of 70% to 75% and normal function of her porcine aortic valve. Throughout the day, the patient continued to complain of chest pain, which was extremely reproducible to palpation. The patient eventually noted that she did have a fall last week, landing on her left side and since then has been experiencing chest pain. In light of this history and workup in the hospital, it was deemed that the patient's chest pain was likely related to musculoskeletal causes. The patient was recommended to treat conservatively with ice/heat therapy and NSAIDs. The patient expressed understanding of this as well as return precautions prior to discharge. DISCHARGE INSTRUCTIONS: Location: Home. Diet: Heart healthy. Activity: As tolerated. Followup: Follow up with PCP Dr. Juan Navarrete in 7 days. Job ID: [id number]
[2019-10-10] MEDS ORDERED: Levothyroxine Sodium 25 MCG TAB PO SCH (06:00)
== END 2019-10-09 16:40 | disposition home or self-care (01) ==
LOC: ERS 10:09 → 2NO 13:02
PROVIDERS: ADMIT Student in an Organized Health Care Education/Training Program; ATTEND Student in an Organized Health Care Education/Training Program
DX: R07.89 Other chest pain (principal); I16.0 Hypertensive urgency; I11.0 Hypertensive heart disease with heart failure; I50.31 Acute diastolic (congestive) heart failure; N17.9 Acute kidney failure, unspecified; I35.0 Nonrheumatic aortic (valve) stenosis; I25.10 Atherosclerotic heart disease of native coronary artery without angina pectoris; M19.90 Unspecified osteoarthritis, unspecified site; F41.9 Anxiety disorder, unspecified; F32.9 Major depressive disorder, single episode, unspecified; K21.9 Gastro-esophageal reflux disease without esophagitis; J44.9 Chronic obstructive pulmonary disease, unspecified; G89.29 Other chronic pain; M54.9 Dorsalgia, unspecified; Q61.3 Polycystic kidney, unspecified; M06.9 Rheumatoid arthritis, unspecified; E03.9 Hypothyroidism, unspecified; Z79.899 Other long term (current) drug therapy; Z87.891 Personal history of nicotine dependence; Z95.1 Presence of aortocoronary bypass graft; Z95.3 Presence of xenogenic heart valve
CPT/HCPCS: 71045; 78452; 80048; 82550; 82553; 82607; 82728; 82746; 83540; 83550; 83880; 84484 ×2; 85007; 85027; 93005; 93017; 93306; 94760; 96374; 96375; 97139; 99285; A9500; 36415; 80053; 81003; 81015; 84443; 85025; 96376; G0378; J1940; J2270; J2785; Q0162

== ENCOUNTER 2020-01-02 18:08 | Observation (INO) | payer MEDICARE, OTHER ==
[2020-01-02 18:55] LABS: Hemoglobin 11.4 g/dL (12.0-16.0); Mean Corpuscular HGB CONC 33.7 g/dL (32.0-36.0); Mean Corpuscular Hemoglobin 30.1 pg (27.0-31.0); Mean Corpuscular Volume 89.2 fL (78.0-98.0); Mean Platelet Volume 7.7 fL (7.4-10.4); Platelet Count 227 thou/uL (130-400); RBC Distribution Width 13.6 % (11.5-14.5); Red Blood Cell (RBC) Count 3.79 mill/uL (4.20-5.40); White Blood Cell (WBC) Count 3.8 thou/uL (4.8-10.8)
[2020-01-02 19:05] LABS: ALT (SGPT) 16 U/L (8-55); AST (SGOT) 17 U/L (5-34); Albumin 4.4 g/dL (3.4-4.8); Alkaline Phosphatase 70 U/L (40-110); Anion Gap 23 mmol/L (10-20); BUN (Urea Nitrogen) 22 mg/dL (9.8-20.1); Bilirubin, Total 0.2 mg/dL (0.2-1.2); CK (CPK) 100 U/L (29-168); Calc. Creatinine Clearance 0 mL/min (70-130); Calcium 8.7 mg/dL (7.8-10.44); Carbon Dioxide 15 mmol/L (23-31); Chloride 103 mmol/L (98-107); Estimated GFR-MDRD 49; Globulin 2.5 g/dL (2.4-3.5); Glucose 87 mg/dL (83-110); Lipase 31 U/L (8-78); Potassium 3.5 mmol/L (3.5-5.1); Protein, Total 6.9 g/dL (6.0-8.3); Sodium 137 mmol/L (136-145)
[2020-01-02 19:18] LABS: Eosinophils 1 % (0-10); Lymphocytes 47 % (21-51); MDiff Complete? YES; Monocytes 2 % (0-10); Neutrophil 47 % (42-75); Ovalocytes SLIGHT = 2-5 cells (100X) (0-1/hpf); Platelet Morphology Comment Appears Adequate; Polychromasia SLIGHT = 2-3 cells (100X) (0-2/hpf)
--- NOTE | 2020-01-02 19:19 | RAD ---
XR Lumbar Spine 2 Or 3 View History: Fall Comparison: Reference is made to a CT abdomen pelvis January 2019 Findings: Obturator rings are intact. No SI joint widening. No pubic symphyseal widening. Calcifications are seen collecting over both renal vessels. Wedge compression fracture of T12 is similar. Superior endplate deformity of L3 is similar. No new co mpression deformity or listhesis. IMPRESSION: Chronic findings. No acute fracture.
[2020-01-02 19:24] LABS: CKMB 3.9 ng/mL (0-6.6)
[2020-01-02] MEDS ORDERED: Aspirin Chewable 81 MG TAB ONE (19:25)
[2020-01-02] MEDS ORDERED: Ketorolac Tromethamine 30 MG/ML VIAL ONE (19:25)
[2020-01-02] MEDS ORDERED: Nitroglycerin 2% Ointment 1 INCH/1 GM Packet ONE (19:28)
--- NOTE | 2020-01-02 19:34 | PDOC.FPRHP ---
- History of Present Illness Chief Complaint: chest pain/palpitation History of Present Illness: 69 y/o F with PMHx CAD s/p CABG and porcine valve replacement, HTN, HLD who presents for palpitations. Reports she was sitting on her couch around 1300 today when she began to feel palpitations, indigestion, and mild SOB, which were symptoms she had with previous heart attack. She did not try taking any medications for her symptoms at home. Pain was improved by standing up and walking around; recurred with sitting but was less than before walking around. Pain did not radiate anywhere, described as central chest pressure. She denies any chest pain. Currently not experiencing any of the symptoms that prompted her to come to the ED today. Reports eating a cheese sandwich for lunch today. She is also complaining of back pain today, after a fall from her porch approximately 1 week ago. She denies any syncope. Describes a mechanical trip and fall over a raised board on the porch. ED Course: ASA, nitro paste Trop: 0.09, EKG sinus micheal - Allergies/Adverse Reactions Allergies Allergy/AdvReac Type Severity Reaction Status Date / Time No Known Allergies Allergy Verified 01/02/20 21:48 - Home Medications Medication Instructions Recorded Confirmed Type tiZANidine HCl [Zanaflex] 4 mg PO BID 04/12/16 01/02/20 History Pregabalin [Lyrica] 1 cap PO TID #9 capsule 10/30/18 01/02/20 Rx Pantoprazole [Protonix] 40 mg PO DAILY #30 pk 11/27/18 01/02/20 Rx Lisinopril [Zestril] 10 mg PO DAILY 10/08/19 01/02/20 History Atorvastatin Calcium [Lipitor] 40 mg PO HS 14 Days #14 tab 10/09/19 01/02/20 Rx Amlodipine Besylate [amLODIPine 2.5 mg PO DAILY 01/02/20 01/02/20 History Besylate] DULoxetine [Cymbalta] 60 mg PO DAILY 01/02/20 01/02/20 History clonazePAM [Klonopin] 0.5 mg PO BID 01/02/20 01/02/20 History - History PMHx: CAD, HTN, HLD, polycystic kidney disease, insomnia/possible anxiety PSHx: CABG, porcine valve replacement, bilateral knee arthroplasty, c section, 'tummy tuck' FHx: heart disease, COPD Social: former smoker, quit 1 year ago, formerly 1/2 ppd x 20 years; denies etoh, drug use - Review of Systems General: denies: fever/chills, weight/appetite/sleep changes ENT: denies: nasal congestion, rhinorrhea Respiratory: reports: shortness of breath. denies: cough, congestion Cardiovascular: reports: palpitation. denies: chest pain, edema Gastrointestinal: denies: nausea, vomiting, diarrhea, constipation, abdominal pain Genitourinary: denies: dysuria, polyuria Skin: denies: rashes Musculoskeletal: reports: pain, arthritis/arthralgias Neurological: denies: syncope, weakness Psychological: denies: anxiety, depression - Vital signs BP: 146/66 HR: 55 RR: 17 Tmax: 97.5 Pox: 95% on RA Wt: 48 kg - Physical Exam Constitutional: NAD, awake, alert and oriented HEENT: normocephalic and atraumatic, PERRLA, conjunctiva clear, no scleral icterus, grossly normal vision, grossly normal hearing, MMM, other (dilated but equally reactive pupils, poor dentition) Neck: supple Chest: no-tender to palpation Heart: RRR, pulses present, no edema, other (systolic murmur LUSB) Lungs: CTAB, no respiratory distress, good air movement, no rales/rhonchi, no wheezing, no retractions Abdomen: soft, non-tender, bowel sounds present Musculoskeletal: other (R paraspinal muscle tightness) Neurological: no focal deficit Skin: no rash/lesions FMR H&P: Results - Labs Result Diagrams: 01/02/20 18:29 01/03/20 01:55 Lab results: WBC 3.8 thou/uL (4.8-10.8) L 01/02/20 18:29 Hgb 11.4 g/dL (12.0-16.0) L 01/02/20 18: Hct 33.8 % (36.0-47.0) L 01/02/20 18:29 MCV 89.2 fL (78.0-98.0) 01/02/20 18:29 Plt Count 227 thou/uL (130-400) 01/02/20 18: Sodium 137 mmol/L (136-145) 01/02/20 18:29 Potassium 3.5 mmol/L (3.5-5.1) 01/02/20 18:29 Chloride 103 mmol/L (98-107) 01/02/20 18:29 Carbon Dioxide 15 mmol/L (23-31) L 01/02/20 18:29 BUN 22 mg/dL (9.8-20.1) H 01/02/20 18:29 Creatinine 1.09 mg/dL (0.6-1.1) 01/02/20 18:29 Glucose 87 mg/dL (83-110) 01/02/20 18:29 Calcium 8.7 mg/dL (7.8-10.44) 01/02/20 18: Total Bilirubin 0.2 mg/dL (0.2-1.2) 01/02/20 18:29 AST 17 U/L (5-34) 01/02/20 18:29 ALT 16 U/L (8-55) 01/02/20 18:29 Alkaline Phosphatase 70 U/L (40-110) 01/02/20 18:29 Creatine Kinase 100 U/L (29-168) 01/02/20 18:29 CK-MB (CK-2) 3.9 ng/mL (0-6.6) 01/02/20 18: Serum Total Protein 6.9 g/dL (6.0-8.3) 01/02/20 18:29 Albumin 4.4 g/dL (3.4-4.8) 01/02/20 18: Lipase 31 U/L (8-78) 01/02/20 18:29 - EKG Interpretation EKG: Palpitations, ACS r/o History of IN with atypical chest pain in the past, similar to current symptoms. EKG sinus bradycardia, no ST changes. Troponin indeterminate range. Given ASA, nitro. Similar symptoms in 09/2019, negative stress test and echo at that time. Favoring a GI etiology given symptoms after lunch and improved with exertion. Questionable history of COPD, although patient denies this, consider as a con tributing factor. May also consider an arrhythmogenic cause given symptoms of palpitations although bradycardic on exam - will defer repeat stress and echo given recent negative results - trend troponin - PRN nitro - monitor for rhythm changes on tele - f/u risk stratification labs, Mg, Phos - continue home statin - stat troponin and EKG if develops chest pain Muscle spasm R paraspinal muscle spasm, s/p fall. No acute fracture on XR in ED. History suggestive of purely mechanical fall. - continue home tizanidine HTN Normotensive today, continue home regimen. Polycystic kidney disease Aware. HLD Continue statin. GERD Continue home protonix. Arthritis Continue home pain regimen Anxiety/Insomnia verified home clonazepam with pharmacy - continue home medications FMR H&P: Upper Level - Plan Date/Time: 01/02/201933 I, [Halima Hawkins], have evaluated this patient and agree with findings/plan as outlined by international marketing executive resident. Pertinent changes/additions are listed here. 69 yo F with hx of IN with CABG here for chest pain/palpitations. In the ER found to have an indeterminate troponin so was admitted for ACS rule out. States her chest pain started after eating. Associated with SOB and palpitations. [place] better with standing up and walking. Received ASA, nitro paste and toradol in the ER. Currently symptom free.Of note she has a pertinent cardiac history for IN w/ CABG with porcine valve replacement in 2014. She was evaluated for a previous episode of chest pain in September in which NMST and TTE was negative for ischemia or new changes. Also had fall from standing 1 week ago, landed on her buttocks. Since then her low back pain had worsened. Lumbar XR in ER showed stable wedge compression fx of T12. No new acute fractures Gen: NAD, resting comfortably CV: systolic murmur 3/5, bradycardic Chest: Non tender to palpation Abd: S, ND, NT Extrem: LE with no edema Back: Right lumbar paraspinal muscle tightness Ddimer WNL CXR no acute cardiopulmonary processes. B/L renal calculi. A/P: #Chest pain & palpitations, ACS rule out -HEART:6, hx of IN with CABG -Trop 0.092, trend -EKG: sins bradycardia, rate 50, LVH, no acute ST/T wave changes [place] 102 -s/p asa, nitro, toradol. Continue nitro paste, toradol and ASA -Suspect reflux, will try GI cocktail -Further w/u with FLP, A1c and TSH. Check Mg/Phos as well. -NMST in September 2019 negative. TTE: No acute findings -Will admit overnight for tele monitoring. #AG met acidosis -Check lactic acid -Check tox screen #Stable T12 wedge compression fx -Pain control #Suspected narcotic abuse -Per ERMD -Will avoid using #1st degree HB -MI 102 -Tele monitoring -Can repeat in AM #Hx of IN with CABG -In 2014, see above #Insomnia -Pt reports taking clonidine -With hx of suspsected narcotic abuse, will med rec -Melatonin/trazodone in meantime #Mood disorder? -Hx of taking escitalpram on last discharge however patient denies #GERD -Continue home PPI #cHTN -Stable, home meds #Physical deconditioning -PT/OT Social: Lives alone in [place], has friend who brings her groceries. History of recurrent falls, consult PT/CM. dvt ppx: lovenox gi ppx: pantoprazole
--- NOTE | 2020-01-02 19:40 | RAD ---
ONE VIEW CHEST: 01/02/20 HISTORY: Heart palpitations. COMPARISON: 07/04/18. FINDINGS: Postoperative changes related to median sternotomy and cardiac valve replacement are again noted. Car diac silhouette and pulmonary vasculature are within normal limits for the portable technique of the study. Lungs remain clear. Vascular calcifications are seen in the thoracic aorta and again overlying the left upper quadrant. The perihilar opacity is seen on prior exam have resolved. Calcifications a re seen overlying the upper quadrants, some of which are likely related to bilateral renal calculi. R emote healed fracture right proximal humerus is again seen. IMPRESSION: 1. No acute cardiopulmonary process. 2. Bilateral renal calculi. POS: [facility]
[2020-01-02] MEDS ORDERED: Ondansetron ODT 4 MG TAB SL PRN (21:45)
[2020-01-02] MEDS ORDERED: Ondansetron PF 4 MG/2 ML Vial IVP PRN (21:45)
[2020-01-02 22:34] LABS: Magnesium 2.3 mg/dL (1.6-2.6); Phosphorus 4.6 mg/dL (2.3-4.7)
[2020-01-02 22:40] LABS: Troponin I 0.089 ng/mL (< 0.028)
[2020-01-02] MEDS ORDERED: tiZANidine HCl 4 MG TAB PO SCH (22:45)
[2020-01-02] MEDS ORDERED: Pregabalin 50 MG CAP PO SCH (22:45)
[2020-01-02] MEDS ORDERED: Nitroglycerin 0.4 MG TAB (25 Tab Bottle) SL PRN (23:10)
[2020-01-03 02:43] LABS: ALT (SGPT) 14 U/L (8-55); AST (SGOT) 17 U/L (5-34); Albumin 3.8 g/dL (3.4-4.8); Alkaline Phosphatase 60 U/L (40-110); Anion Gap 15 mmol/L (10-20); BUN (Urea Nitrogen) 19 mg/dL (9.8-20.1); Bilirubin, Total 0.2 mg/dL (0.2-1.2); Calc. Creatinine Clearance 44 mL/min (70-130); Calcium 8.3 mg/dL (7.8-10.44); Carbon Dioxide 22 mmol/L (23-31); Chloride 104 mmol/L (98-107); Estimated GFR-MDRD 62; Globulin 2.3 g/dL (2.4-3.5); Glucose 83 mg/dL (83-110); Potassium 3.3 mmol/L (3.5-5.1); Protein, Total 6.1 g/dL (6.0-8.3); Sodium 138 mmol/L (136-145)
--- NOTE | 2020-01-03 07:05 | PDOC.FM ---
- Subjective Subjective: pt resting in bed, currently denies chest pain or cough. - Objective Vital Signs & Weight: Vital Signs (12 hours) Temp Pulse Resp BP BP Pulse Ox 01/03/20 04:01 97.8 F 48 L 16 113/52 L 97 01/02/20 21:21 97.5 F L 50 L 17 147/66 H 93 L Weight Weight 48.172 kg I&O: 01/02/20 01/03/20 01/04/20 06:59 06:59 06:59 Intake Total 160 Balance 160 Result Diagrams: 01/02/20 18:29 01/03/20 01:55 Phys Exam - Physical Examination Constitutional: NAD HEENT: moist MMs Neck: supple Respiratory: clear to auscultation bilateral even chest rise and fall Cardiovascular: RRR murmur present Gastrointestinal: no distention Musculoskeletal: no edema, pulses present Neurological: moves all 4 limbs Psychiatric: normal affect Skin: no rash Dx/Plan (1) CAD (coronary artery disease) Code(s): I25.10 - ATHSCL HEART DISEASE OF [place] CORONARY ARTERY W/O ANG PCTRS Status: Acute Qualifiers: Coronary Disease-Associated Artery/Lesion type: [place] artery [place] vs. transplanted heart: [place] heart (2) Compression fracture of body of thoracic vertebra Code(s): M48.54XA - COLLAPSED VERTEBRA, NEC, THORACIC REGION, INIT Status: Acute (3) Hypokalemia Code(s): E87.6 - HYPOKALEMIA Status: Acute (4) HTN (hypertension) Code(s): I10 - ESSENTIAL (PRIMARY) HYPERTENSION Status: Chronic Qualifiers: Hypertension type: essential hypertension Qualified Code(s): I10 - Essential (primary) hypertension (5) History of coronary artery bypass graft x 1 Code(s): Z95.1 - PRESENCE OF AORTOCORONARY BYPASS GRAFT Status: Chronic - Plan Plan: ACS ro -HEART:6, hx of [place] with CABG -Trop 0.092, trend -EKG: sins bradycardia, rate 50, LVH, no acute ST/T wave changes [place] 102 -s/p asa, nitro, toradol. Continue nitro paste, toradol and ASA -Suspect reflux, will try GI cocktail -Further w/u with FLP, A1c and TSH. Check Mg/Phos as well. -NMST in September 2019 negative. TTE: No acute findings -Will admit overnight for tele monitoring. Stable T12 wedge compression fx -non narcotic pain control Pain control Insomnia -cont home meds hypokalemia - replace as needed GERD -Continue home PPI cHTN -Stable, home meds Physical deconditioning -PT/OT ppx: lovenox dispo: medically stable for dc, eval saftey of home environment
[2020-01-03] MEDS ORDERED: Potassium Chloride 20 MEQ TAB PO SCH (07:15)
[2020-01-03] MEDS: Pregabalin 50 MG CAP PO SCH ×2 (08:21→16:21)
[2020-01-03] MEDS ORDERED: Pantoprazole 40 MG GRANULES PACKET PO SCH (09:00)
[2020-01-03] MEDS ORDERED: Enoxaparin Sodium 30 MG/0.3 ML SYRINGE SC SCH (09:00)
[2020-01-03] MEDS ORDERED: Lisinopril 10 MG TAB PO SCH (09:00)
[2020-01-03] MEDS ORDERED: Amlodipine 5 MG TAB PO SCH (09:00)
[2020-01-03] MEDS ORDERED: clonazePAM 0.5 MG TAB PO SCH (09:00)
[2020-01-03] MEDS ORDERED: tiZANidine HCl 4 MG TAB PO SCH (09:00)
[2020-01-03] MEDS ORDERED: DULoxetine 60 MG CAP PO SCH (09:00)
[2020-01-03 09:46] LABS: Medtox Reader # READER 1
[2020-01-03 09:47] LABS: Amphetamine Not Detected (NotDetected); Barbiturates Screen Not Detected (NotDetected); Benzodiazepine Screen Detected (NotDetected); Cocaine Metabolite Screen Not Detected (NotDetected); Medtox Control Line Valid? VALID (VALID); Methadone Not Detected (NotDetected); Methamphetamine Not Detected (NotDetected); Opiate Screen Not Detected (NotDetected); Oxycodone Screen Not Detected (NotDetected); Phencyclidine (PCP) Not Detected (NotDetected); THC/Cannabinoid Screen Not Detected (NotDetected); Tricyclic Screen Not Detected (NotDetected)
[2020-01-03 12:31] LABS: Lactic Acid 1.5 mmol/L (0.5-2.2)
[2020-01-03 13:27] VITALS: BMI 21.4
--- NOTE | 2020-01-03 13:43 | EKG ---
Test Reason : Blood Pressure : / mmHG Vent. Rate : 054 BPM Atrial Rate : 054 BPM P-R Int : 208 ms QRS Dur : 106 ms QT Int : 480 ms P-R-T Axes : 041 -11 072 degrees QTc Int : 455 ms Sinus bradycardia Voltage criteria for left ventricular hypertrophy Nonspecific T wave abnormality Abnormal ECG Confirmed by NATALIE BRIDGES DO ([id number]), editor news KATHY DISLA ([id number]) on 01/03/2020 1:43:17 PM Referred By: Confirmed By:NATALIE BRIDGES DO
[2020-01-03 14:49] LABS: SARS-CoV-2 MS2 Positive; SARS-CoV-2 N Gene Negative; SARS-CoV-2 S Gene Negative; SARS-CoV-2 by NAA Not Detected (NotDetected); SARS-CoV-2 orf1ab Negative
[2020-01-03 16:23] VITALS: TEMP 98
[2020-01-03 17:22] VITALS: BP 122/84
--- NOTE | 2020-01-03 17:57 | HP ---
Please see the history and physical done by Dr. Cierra Godwin and also progress note by Dr. Everardo Quijano for which I agree. The patient was seen, evaluated, discussed, and examined with the residents by bedside. HISTORY OF PRESENT ILLNESS: A 69-year-old who has a porcine valve replacement, came in with palpitations and some chest discomfort after pretty major heartburn yesterday morning. Had very similar symptoms when she was admitted in September. At that time, full cardiac workup and stress test were normal. Troponin overnight have been completely normal. She has absolutely no symptoms currently. PAST MEDICAL HISTORY: Per the history and physical for which I agree. CURRENT MEDICATION LIST: Per the history and physical for which I agree. PAST SURGICAL HISTORY: Per the history and physical for which I agree. FAMILY HISTORY: Per the history and physical for which I agree. SOCIAL HISTORY: Per the history and physical for which I agree. REVIEW OF SYSTEMS: Per the history and physical for which I agree. PHYSICAL EXAMINATION: VITAL SIGNS: Blood pressure initially a little bit high, although slightly borderline low this morning. Alert and oriented x3, in no apparent distress. ENT: Conjunctivae not pale. Sclerae anicteric. Moist mucosa. NECK: No lymphadenopathy or thyromegaly. CHEST: Clear. CARDIAC: Regular rate and rhythm. ABDOMEN: Benign. EXTREMITIES: No edema. LABS: Reviewed. Pretty unremarkable. Potassium is a little bit low at 3.3, hemoglobin slightly low at 11.4, but troponins have been fine. ASSESSMENT AND PLAN: Chest pain, palpitations rule out this morning as long as the last troponin fine should be able to go home. We will put her on an H2 alex in addition to the proton pump inhibitor that she is now on the morning. We are watching her for some borderline metabolic acidosis those numbers are fine, I will see why she cannot go home. Otherwise, we will continue the same home medications. Job ID: [id number]
[2020-01-03] MEDS ORDERED: Atorvastatin Calcium 40 MG TAB PO SCH (21:00)
[2020-01-04] MEDS ORDERED: Lisinopril 10 MG TAB PO SCH (09:00)
== END 2020-01-03 16:48 | disposition home or self-care (01) ==
LOC: ERS 18:08 → 2SW 19:37
PROVIDERS: ADMIT Family Medicine; ATTEND Family Medicine
DX: R07.89 Other chest pain (principal); R00.2 Palpitations; I10 Essential (primary) hypertension; I25.10 Atherosclerotic heart disease of native coronary artery without angina pectoris; I25.2 Old myocardial infarction; E87.2 Acidosis; E78.5 Hyperlipidemia, unspecified; E87.6 Hypokalemia; K21.9 Gastro-esophageal reflux disease without esophagitis; Q61.3 Polycystic kidney, unspecified; M19.90 Unspecified osteoarthritis, unspecified site; F41.9 Anxiety disorder, unspecified; G47.00 Insomnia, unspecified; N20.0 Calculus of kidney; M48.54XA Collapsed vertebra, not elsewhere classified, thoracic region, initial encounter for fracture; Z79.899 Other long term (current) drug therapy; Z87.891 Personal history of nicotine dependence; Z95.1 Presence of aortocoronary bypass graft; Z95.3 Presence of xenogenic heart valve; Z91.81 History of falling; Z20.828 Contact with and (suspected) exposure to other viral communicable diseases
CPT/HCPCS: 71045; 72100; 80053; 80306; 82550; 82553; 83036; 83605; 83690; 83735; 84100; 84484 ×3; 85379; 93005; 94760 ×2; 96374; 97116; 97139 ×4; 97535; 99285; U0003; 36415; 84443; 85025; 87635; 96372; G0378; J1650; J1885; J7620

== ENCOUNTER 2020-02-13 19:01 | Emergency (ER) | payer MEDICARE, OTHER ==
[2020-02-13] MEDS ORDERED: Lorazepam 1 MG TAB ONE (19:48)
[2020-02-13] MEDS ORDERED: HYDROcodone/Acetaminophen 10/325 mg Tablet ONE (19:49)
== END 2020-02-13 22:05 | disposition home or self-care (01) ==
LOC: ERS 19:01
DX: R25.1 Tremor, unspecified (principal); G89.29 Other chronic pain; I10 Essential (primary) hypertension; M06.9 Rheumatoid arthritis, unspecified; I25.2 Old myocardial infarction; F32.9 Major depressive disorder, single episode, unspecified; F41.9 Anxiety disorder, unspecified; F17.210 Nicotine dependence, cigarettes, uncomplicated; Z79.899 Other long term (current) drug therapy
CPT/HCPCS: 99283

== ENCOUNTER 2020-03-08 10:10 | Emergency (ER) | payer MEDICARE, OTHER ==
[2020-03-08 11:21] LABS: #Basophils 0.1 thou/uL (0.0-0.2); #Lymphocytes 1.6 thou/uL (1.20-3.40); #Monocytes 0.2 thou/uL (0.11-0.59); #Neutrophils 2.4 thou/uL (1.40-6.50); %Lymphocytes 37.2 % (21.0-51.0); %Neutrophils 54.8 % (42.0-75.0); Mean Corpuscular HGB CONC 33.3 g/dL (32.0-36.0); Mean Corpuscular Volume 87.2 fL (78.0-98.0); Mean Platelet Volume 7.8 fL (7.4-10.4); Platelet Count 194 thou/uL (130-400); RBC Distribution Width 13.1 % (11.5-14.5); Red Blood Cell (RBC) Count 3.79 mill/uL (4.20-5.40); White Blood Cell (WBC) Count 4.4 thou/uL (4.8-10.8)
[2020-03-08 11:50] LABS: ALT (SGPT) Less than 7 U/L (8-55); AST (SGOT) 15 U/L (5-34); Alkaline Phosphatase 115 U/L (40-110); Anion Gap 15 mmol/L (10-20); BUN (Urea Nitrogen) 12 mg/dL (9.8-20.1); Bilirubin, Total Less than 0.2 mg/dL (0.2-1.2); Calc. Creatinine Clearance 0 mL/min (70-130); Calcium 8.4 mg/dL (7.8-10.44); Carbon Dioxide 24 mmol/L (23-31); Chloride 102 mmol/L (98-107); Estimated GFR-MDRD 68; Glucose 100 mg/dL (83-110); Lipase 33 U/L (8-78); Sodium 138 mmol/L (136-145)
[2020-03-08] MEDS ORDERED: Metoclopramide HCl 10 MG/2 ML VIAL ONE ×2 (11:53→12:47)
[2020-03-08] MEDS ORDERED: diphenhydrAMINE 50 MG/ML VIAL ONE ×2 (11:53→12:47)
[2020-03-08] MEDS ORDERED: Iopamidol-370 76% 500 ML 1 ML ONE (12:19)
--- NOTE | 2020-03-08 13:09 | CT ---
CT head noncontrast HISTORY: Headache. COMPARISON: 04/22/2018. FINDINGS: There is no evidence of acute intracranial hemorrhage or infarct. Lacunar infarct at the bashir perior margin of the right caudate head and old lacunar infarct of the right basal ganglia are stable. There is no mass effect or shift of midline structures. Ventricles appear normal in size, sha pe and position. IMPRESSION : No acute abnormalities are demonstrated.
--- NOTE | 2020-03-08 13:30 | CT ---
CT abdomen and pelvis with IV contrast HISTORY: Abdomen pain. FINDINGS: 02/07/2019. FINDINGS: Lung bases are clear. Old healed fractures at the left posterior lower ribs. Kidneys are en larged with diffuse renal atrophy and parapelvic cysts similar in appearance to the prior study. Nonobstructing calcifications within nondilated calyces of each kidney measure up to 1.1 cm greatest length at the superior pole of the right kidney and 0.6 cm at the inferior pole of the left kidney. Ureters are decompressed. Retroaortic left renal vein noted. Diverticula arise from the colon without adjacent inflammation. No evidence of bowel obstruction. Jordi endix unremarkable. Calcification throughout the arterial structures. Prominent chronic wedge compression deformity of the T12 vertebral body with retropulsion of the supe rior endplate and compromise of the central spinal canal is unchanged in appearance from the prior study. IMPRESSION : No acute abnormalities are demonstrated. Diverticulosis. No evidence of diverticulitis. Nonobstructing bilateral renal calculi. Other chronic-type findings as detailed above.
[2020-03-08] MEDS ORDERED: Potassium Chloride 20 MEQ TAB ONE (15:11)
[2020-03-08 21:19] LABS: SARS-CoV-2 MS2 Positive; SARS-CoV-2 N Gene Negative; SARS-CoV-2 S Gene Negative; SARS-CoV-2 by NAA Not Detected (NotDetected); SARS-CoV-2 orf1ab Negative
== END 2020-03-08 15:18 | disposition home or self-care (01) ==
LOC: ERS 10:10
DX: R63.0 Anorexia (principal); R51.9 Headache, unspecified; E87.6 Hypokalemia; R11.0 Nausea; I10 Essential (primary) hypertension; M06.9 Rheumatoid arthritis, unspecified; F17.210 Nicotine dependence, cigarettes, uncomplicated; Z79.899 Other long term (current) drug therapy
CPT/HCPCS: 70450; 74177; 80053; 83690; 85025; 93005; 96365; 96366; 96375; 99284; U0003; 36415; 87635; J1200; J2765; Q9967

== ENCOUNTER 2020-05-29 03:44 | Emergency (ER) | payer MEDICARE, OTHER ==
[2020-05-29] MEDS ORDERED: Ondansetron PF 4 MG/2 ML Vial ONE ×2 (04:21→06:19)
[2020-05-29] MEDS ORDERED: Aspirin 325 MG TAB ONE (04:21)
[2020-05-29] MEDS ORDERED: Ketorolac Tromethamine 30 MG/ML VIAL ONE (05:11)
[2020-05-29 05:29] LABS: Band 1 % (5-11); Eosinophils 4 % (0-10); Hemoglobin 11.3 g/dL (12.0-16.0); Lymphocytes 63 % (21-51); MDiff Complete? YES; Mean Corpuscular HGB CONC 34.8 g/dL (32.0-36.0); Mean Platelet Volume 7.6 fL (7.4-10.4); Monocytes 7 % (0-10); Neutrophil 24 % (42-75); Platelet Count 250 thou/uL (130-400); RBC Distribution Width 14.6 % (11.5-14.5); Reactive Lymphocytes 1 % (0-10); Red Blood Cell (RBC) Count 3.54 mill/uL (4.20-5.40); White Blood Cell (WBC) Count 4.6 thou/uL (4.8-10.8)
[2020-05-29 05:39] LABS: ALT (SGPT) Less than 7 U/L (8-55); AST (SGOT) 11 U/L (5-34); Albumin 4.4 g/dL (3.4-4.8); Alkaline Phosphatase 93 U/L (40-110); Anion Gap 15 mmol/L (10-20); BUN (Urea Nitrogen) 14 mg/dL (9.8-20.1); Bilirubin, Total 0.3 mg/dL (0.2-1.2); Calc. Creatinine Clearance 0 mL/min (70-130); Carbon Dioxide 33 mmol/L (23-31); Chloride 97 mmol/L (98-107); Globulin 3.1 g/dL (2.4-3.5); Glucose 90 mg/dL (83-110); Potassium 3.5 mmol/L (3.5-5.1); Protein, Total 7.5 g/dL (5.8-8.1); Sodium 141 mmol/L (136-145)
[2020-05-29] MEDS ORDERED: diphenhydrAMINE 50 MG/ML VIAL ONE (06:19)
--- NOTE | 2020-05-29 09:45 | RAD ---
SINGLE VIEW CHEST: Date: 05/29/2020 HISTORY: High blood pressure and chest pain. FINDINGS: Single view of the chest shows normal sized cardiomediastinal silhouette with atherosclerotic calcifi cations in the aorta. The patient is status post aortic valve repair. There is no evidence of consoli dation, mass, or pleural effusion. Degenerative changes are seen in the spine. There is a remote heal ed right humerus fracture. IMPRESSION: No evidence of acute cardiopulmonary disease. POS: [facility]
== END 2020-05-29 06:28 | disposition home or self-care (01) ==
LOC: ERS 03:44
DX: R51.9 Headache, unspecified (principal); R07.89 Other chest pain; I10 Essential (primary) hypertension; M06.9 Rheumatoid arthritis, unspecified; F17.210 Nicotine dependence, cigarettes, uncomplicated
CPT/HCPCS: 71045; 80053; 84484; 85025; 93005; 96374; 96376; J1200; J1885; J2405

== ENCOUNTER 2020-07-16 14:09 | Inpatient (IN) | payer MEDICARE, OTHER ==
[2020-07-16 15:09] LABS: #Lymphocytes 1.5 thou/uL (1.20-3.40); #Monocytes 0.7 thou/uL (0.11-0.59); #Neutrophils 8.7 thou/uL (1.40-6.50); %Basophils 0.2 % (0.0-1.0); %Eosinophils 0.4 % (0.0-10.0); %Lymphocytes 13.5 % (21.0-51.0); %Monocytes 6.8 % (0.0-10.0); %Neutrophils 79.1 % (42.0-75.0); Hemoglobin 9.7 g/dL (12.0-16.0); Mean Corpuscular HGB CONC 33.7 g/dL (32.0-36.0); Mean Corpuscular Hemoglobin 31.8 pg (27.0-31.0); Mean Corpuscular Volume 94.6 fL (78.0-98.0); Platelet Count 256 thou/uL (130-400); RBC Distribution Width 14.8 % (11.5-14.5); Red Blood Cell (RBC) Count 3.05 mill/uL (4.20-5.40); White Blood Cell (WBC) Count 10.9 thou/uL (4.8-10.8)
[2020-07-16 15:33] LABS: ALT (SGPT) 32 U/L (8-55); AST (SGOT) 18 U/L (5-34); Albumin 3.6 g/dL (3.4-4.8); Alkaline Phosphatase 285 U/L (40-110); Anion Gap 17 mmol/L (10-20); BUN (Urea Nitrogen) 33 mg/dL (9.8-20.1); Bilirubin, Total 0.3 mg/dL (0.2-1.2); CK (CPK) 64 U/L (29-168); Calc. Creatinine Clearance 0 mL/min (70-130); Calcium 9.3 mg/dL (7.8-10.44); Carbon Dioxide 21 mmol/L (23-31); Chloride 116 mmol/L (98-107); Globulin 4.1 g/dL (2.4-3.5); Glucose 126 mg/dL (83-110); Potassium 4.2 mmol/L (3.5-5.1); Protein, Total 7.7 g/dL (5.8-8.1); Sodium 150 mmol/L (136-145)
[2020-07-16] MEDS ORDERED: Azithromycin 500 MG VIAL ONE (15:43)
[2020-07-16] MEDS ORDERED: cefTRIAXone\\ROCEPHIN 1 GM VIAL ONE (15:43)
[2020-07-16] MEDS ORDERED: Aspirin Chewable 81 MG TAB ONE (15:50)
[2020-07-16 15:52] LABS: CKMB 2.1 ng/mL (0-6.6)
[2020-07-16] MEDS ORDERED: Dexamethasone 10 MG/ML VIAL ONE (16:00)
[2020-07-16] MEDS ORDERED: Nitroglycerin 2% Ointment 1 INCH/1 GM Packet ONE (16:00)
[2020-07-16 16:50] LABS: SARS-CoV-2 NAA Rapid Test Not Detected (NotDetected)
[2020-07-16] MEDS ORDERED: Ondansetron PF 4 MG/2 ML Vial IVP PRN (16:55)
[2020-07-16] MEDS ORDERED: Ondansetron ODT 4 MG TAB PO PRN (16:55)
[2020-07-16] MEDS ORDERED: Albuterol Sulfate 2.5 mg/3 ml Neb NEB PRN (17:39)
[2020-07-16 21:49] LABS: Troponin I 0.229 ng/mL (< 0.028)
[2020-07-16 23:49] LABS: Legionella Urinary Ag Negative (Negative); Strep pneumo Urine Ag NEGATIVE (NEGATIVE)
[2020-07-17 04:59] LABS: Anion Gap 14 mmol/L (10-20); BUN (Urea Nitrogen) 34 mg/dL (9.8-20.1); Calc. Creatinine Clearance 57 mL/min (70-130); Calcium 9.1 mg/dL (7.8-10.44); Carbon Dioxide 24 mmol/L (23-31); Chloride 118 mmol/L (98-107); Glucose 125 mg/dL (83-110); Potassium 4.6 mmol/L (3.5-5.1); Sodium 151 mmol/L (136-145)
[2020-07-17 05:06] LABS: Band 11 % (5-11); Lymphocytes 10 % (21-51); MDiff Complete? YES; Mean Corpuscular HGB CONC 31.3 g/dL (32.0-36.0); Mean Corpuscular Hemoglobin 29.7 pg (27.0-31.0); Mean Corpuscular Volume 94.8 fL (78.0-98.0); Mean Platelet Volume 8.4 fL (7.4-10.4); Monocytes 3 % (0-10); Neutrophil 76 % (42-75); Platelet Count 245 thou/uL (130-400); Platelet Morphology Comment Appears Adequate; RBC Distribution Width 14.9 % (11.5-14.5); Red Blood Cell (RBC) Count 3.03 mill/uL (4.20-5.40); White Blood Cell (WBC) Count 8.4 thou/uL (4.8-10.8)
[2020-07-17] MEDS: Enoxaparin Sodium 40 MG/0.4 ML SYRINGE SC SCH (08:37)
[2020-07-17] MEDS: Azithromycin 250 MG TAB PO SCH (08:37)
[2020-07-17] MEDS: predniSONE 20 MG TAB PO SCH (08:37)
[2020-07-17] MEDS: Lactated Ringer's 1,000 ML IV SCH ×2 (08:55→17:57)
[2020-07-17] MEDS: Lisinopril 10 MG TAB PO SCH (08:55)
[2020-07-17] MEDS ORDERED: Gabapentin 300 MG CAP PO SCH (09:00)
[2020-07-17] MEDS ORDERED: cefTRIAXone\\ROCEPHIN 1 GM in Sodium Chloride 0.9% 100 ML IVPB SCH (15:00)
[2020-07-17] MEDS: Acetaminophen 325 MG TAB PO PRN (17:14)
[2020-07-17] MEDS ORDERED: Morphine 2 MG/ML VIAL SLOW IVP SCH (18:15)
[2020-07-17] MEDS: Pregabalin 75 MG CAP PO SCH (20:28)
[2020-07-17] MEDS: Atorvastatin Calcium 40 MG TAB PO SCH (20:28)
[2020-07-18] MEDS: Acetaminophen 325 MG TAB PO PRN ×3 (04:23→22:43)
[2020-07-18] MEDS: Lactated Ringer's 1,000 ML IV SCH ×2 (04:25→15:09)
[2020-07-18 06:21] LABS: ALT (SGPT) 26 U/L (8-55); AST (SGOT) 16 U/L (5-34); Albumin 3.5 g/dL (3.4-4.8); Alkaline Phosphatase 267 U/L (40-110); Anion Gap 17 mmol/L (10-20); BUN (Urea Nitrogen) 34 mg/dL (9.8-20.1); Bilirubin, Total 0.2 mg/dL (0.2-1.2); Calc. Creatinine Clearance 58 mL/min (70-130); Calcium 8.9 mg/dL (7.8-10.44); Carbon Dioxide 22 mmol/L (23-31); Chloride 118 mmol/L (98-107); Globulin 3.6 g/dL (2.4-3.5); Glucose 119 mg/dL (83-110); Potassium 5.3 mmol/L (3.5-5.1); Protein, Total 7.1 g/dL (5.8-8.1); Sodium 152 mmol/L (136-145)
[2020-07-18] MEDS ORDERED: Lactated Ringer's 500 ML IV SCH ×2 (08:00→08:15)
[2020-07-18] MEDS: Pregabalin 75 MG CAP PO SCH ×2 (08:01→20:42)
[2020-07-18] MEDS: predniSONE 20 MG TAB PO SCH (08:02)
[2020-07-18] MEDS: Azithromycin 250 MG TAB PO SCH (08:03)
[2020-07-18] MEDS: Lisinopril 10 MG TAB PO SCH (08:03)
[2020-07-18] MEDS: Enoxaparin Sodium 40 MG/0.4 ML SYRINGE SC SCH (08:03)
[2020-07-18] MEDS ORDERED: guaiFENesin ER 600 MG TAB PO PRN (12:44)
[2020-07-18] MEDS ORDERED: guaiFENesin ER 600 MG TAB PO SCH (12:45)
[2020-07-18] MEDS: Atorvastatin Calcium 40 MG TAB PO SCH (20:43)
[2020-07-19] MEDS: Acetaminophen 325 MG TAB PO PRN ×2 (06:38→12:12)
[2020-07-19] MEDS: Azithromycin 250 MG TAB PO SCH (08:24)
[2020-07-19] MEDS: predniSONE 20 MG TAB PO SCH (08:25)
[2020-07-19] MEDS: Pregabalin 75 MG CAP PO SCH ×2 (08:26→21:12)
[2020-07-19] MEDS: Lisinopril 10 MG TAB PO SCH (08:26)
[2020-07-19] MEDS: Enoxaparin Sodium 40 MG/0.4 ML SYRINGE SC SCH (08:27)
[2020-07-19 08:55] LABS: #Eosinphils 0.1 thou/uL (0.0-0.7); #Lymphocytes 2.5 thou/uL (1.20-3.40); #Monocytes 0.3 thou/uL (0.11-0.59); #Neutrophils 6.4 thou/uL (1.40-6.50); %Basophils 0.1 % (0.0-1.0); %Eosinophils 1.6 % (0.0-10.0); %Lymphocytes 26.3 % (21.0-51.0); %Monocytes 3.5 % (0.0-10.0); %Neutrophils 68.6 % (42.0-75.0); Hemoglobin 8.3 g/dL (12.0-16.0); Mean Corpuscular HGB CONC 32.3 g/dL (32.0-36.0); Mean Corpuscular Hemoglobin 30.8 pg (27.0-31.0); Mean Corpuscular Volume 95.1 fL (78.0-98.0); Mean Platelet Volume 8.4 fL (7.4-10.4); Platelet Count 171 thou/uL (130-400); RBC Distribution Width 14.8 % (11.5-14.5); Red Blood Cell (RBC) Count 2.71 mill/uL (4.20-5.40); White Blood Cell (WBC) Count 9.3 thou/uL (4.8-10.8)
[2020-07-19 09:15] LABS: Anion Gap 12 mmol/L (10-20); BUN (Urea Nitrogen) 19 mg/dL (9.8-20.1); Calc. Creatinine Clearance 60 mL/min (70-130); Calcium 7.9 mg/dL (7.8-10.44); Carbon Dioxide 25 mmol/L (23-31); Chloride 111 mmol/L (98-107); Glucose 109 mg/dL (83-110); Potassium 3.3 mmol/L (3.5-5.1); Sodium 145 mmol/L (136-145)
[2020-07-19] MEDS ORDERED: Pregabalin 75 MG CAP PO SCH (16:15)
[2020-07-19] MEDS ORDERED: Lisinopril 10 MG TAB PO SCH (21:00)
[2020-07-19] MEDS: Atorvastatin Calcium 40 MG TAB PO SCH (21:12)
[2020-07-19] MEDS: Lisinopril 5 MG TAB PO SCH (21:12)
[2020-07-19] MEDS: traZODone HCl 50 MG TAB PO SCH (21:13)
[2020-07-20 04:39] LABS: #Eosinphils 0.1 thou/uL (0.0-0.7); #Lymphocytes 2.5 thou/uL (1.20-3.40); #Monocytes 0.4 thou/uL (0.11-0.59); #Neutrophils 6.8 thou/uL (1.40-6.50); %Basophils 0.3 % (0.0-1.0); %Eosinophils 0.8 % (0.0-10.0); %Lymphocytes 25.9 % (21.0-51.0); %Monocytes 3.9 % (0.0-10.0); %Neutrophils 69.1 % (42.0-75.0); Hemoglobin 8.4 g/dL (12.0-16.0); Mean Corpuscular HGB CONC 33.4 g/dL (32.0-36.0); Mean Corpuscular Hemoglobin 31.8 pg (27.0-31.0); Mean Corpuscular Volume 95.2 fL (78.0-98.0); Mean Platelet Volume 8.2 fL (7.4-10.4); Platelet Count 186 thou/uL (130-400); RBC Distribution Width 14.9 % (11.5-14.5); Red Blood Cell (RBC) Count 2.62 mill/uL (4.20-5.40); White Blood Cell (WBC) Count 9.8 thou/uL (4.8-10.8)
[2020-07-20 04:55] LABS: Anion Gap 12 mmol/L (10-20); BUN (Urea Nitrogen) 19 mg/dL (9.8-20.1); Calc. Creatinine Clearance 62 mL/min (70-130); Calcium 7.8 mg/dL (7.8-10.44); Carbon Dioxide 25 mmol/L (23-31); Chloride 109 mmol/L (98-107); Glucose 97 mg/dL (83-110); Potassium 3.3 mmol/L (3.5-5.1); Sodium 143 mmol/L (136-145)
[2020-07-20] MEDS ORDERED: Potassium Chloride 20 MEQ TAB PO SCH (08:45)
[2020-07-20] MEDS: Pregabalin 75 MG CAP PO SCH ×3 (09:45→21:23)
[2020-07-20] MEDS: Lisinopril 5 MG TAB PO SCH ×2 (09:45→21:22)
[2020-07-20] MEDS: Azithromycin 250 MG TAB PO SCH (09:45)
[2020-07-20] MEDS: Amlodipine 5 MG TAB PO SCH (09:46)
[2020-07-20] MEDS: tiZANidine HCl 4 MG TAB PO SCH (09:46)
[2020-07-20] MEDS: predniSONE 20 MG TAB PO SCH (09:46)
[2020-07-20] MEDS: Enoxaparin Sodium 40 MG/0.4 ML SYRINGE SC SCH (09:46)
[2020-07-20] MEDS: Acetaminophen 325 MG TAB PO PRN (12:37)
[2020-07-20] MEDS: traZODone HCl 50 MG TAB PO SCH (21:21)
[2020-07-20] MEDS: Atorvastatin Calcium 40 MG TAB PO SCH (21:22)
[2020-07-20] MEDS ORDERED: tiZANidine HCl 4 MG TAB PO SCH (21:59)
[2020-07-21 07:36] LABS: Anion Gap 10 mmol/L (10-20); BUN (Urea Nitrogen) 20 mg/dL (9.8-20.1); Calc. Creatinine Clearance 65 mL/min (70-130); Calcium 7.8 mg/dL (7.8-10.44); Carbon Dioxide 25 mmol/L (23-31); Chloride 111 mmol/L (98-107); Glucose 92 mg/dL (83-110); Sodium 142 mmol/L (136-145)
[2020-07-21] MEDS: Amlodipine 5 MG TAB PO SCH (09:10)
[2020-07-21] MEDS: Lisinopril 5 MG TAB PO SCH ×2 (09:11→21:15)
[2020-07-21] MEDS: tiZANidine HCl 4 MG TAB PO SCH (09:11)
[2020-07-21] MEDS: Pregabalin 75 MG CAP PO SCH ×3 (09:11→21:16)
[2020-07-21] MEDS: Enoxaparin Sodium 40 MG/0.4 ML SYRINGE SC SCH (09:11)
[2020-07-21] MEDS: predniSONE 20 MG TAB PO SCH (09:11)
[2020-07-21] MEDS: Acetaminophen 325 MG TAB PO PRN (12:40)
[2020-07-21] MEDS: Atorvastatin Calcium 40 MG TAB PO SCH (21:15)
[2020-07-21] MEDS: traZODone HCl 50 MG TAB PO SCH (21:16)
[2020-07-22] MEDS: Acetaminophen 325 MG TAB PO PRN ×3 (00:41→18:02)
[2020-07-22] MEDS: tiZANidine HCl 4 MG TAB PO SCH ×2 (09:27→21:36)
[2020-07-22] MEDS: Amlodipine 5 MG TAB PO SCH (09:27)
[2020-07-22] MEDS: Lisinopril 5 MG TAB PO SCH ×2 (09:27→21:35)
[2020-07-22] MEDS: Pregabalin 75 MG CAP PO SCH ×3 (09:27→21:36)
[2020-07-22] MEDS: Enoxaparin Sodium 40 MG/0.4 ML SYRINGE SC SCH (09:28)
[2020-07-22] MEDS: Ipratropium Oral Inhaler INH SCH ×2 (10:09→14:08)
[2020-07-22] MEDS: predniSONE 20 MG TAB PO SCH (10:14)
[2020-07-22] MEDS: traZODone HCl 50 MG TAB PO SCH (21:36)
[2020-07-22] MEDS: Atorvastatin Calcium 40 MG TAB PO SCH (21:36)
[2020-07-23] MEDS: Acetaminophen 325 MG TAB PO PRN ×3 (08:56→18:10)
[2020-07-23] MEDS: Lisinopril 5 MG TAB PO SCH ×2 (08:57→20:54)
[2020-07-23] MEDS: Pregabalin 75 MG CAP PO SCH ×3 (08:57→20:55)
[2020-07-23] MEDS: tiZANidine HCl 4 MG TAB PO SCH ×2 (08:58→20:55)
[2020-07-23] MEDS: Amlodipine 5 MG TAB PO SCH (08:58)
[2020-07-23] MEDS: Enoxaparin Sodium 40 MG/0.4 ML SYRINGE SC SCH (08:58)
[2020-07-23] MEDS ORDERED: Ipratropium Oral Inhaler INH SCH (11:00)
[2020-07-23] MEDS: Ipratropium Oral Inhaler INH SCH ×3 (11:18→19:43)
[2020-07-23] MEDS: traZODone HCl 50 MG TAB PO SCH (20:55)
[2020-07-23] MEDS: Atorvastatin Calcium 40 MG TAB PO SCH (20:55)
[2020-07-24] MEDS: Ipratropium Oral Inhaler INH SCH ×4 (07:50→19:24)
[2020-07-24] MEDS: Amlodipine 5 MG TAB PO SCH (08:52)
[2020-07-24] MEDS: Lisinopril 5 MG TAB PO SCH ×2 (08:52→21:54)
[2020-07-24] MEDS: tiZANidine HCl 4 MG TAB PO SCH ×2 (08:53→21:50)
[2020-07-24] MEDS: Pregabalin 75 MG CAP PO SCH ×3 (08:53→21:50)
[2020-07-24] MEDS: Enoxaparin Sodium 40 MG/0.4 ML SYRINGE SC SCH (08:53)
[2020-07-24] MEDS: Acetaminophen 325 MG TAB PO PRN ×3 (08:54→21:52)
[2020-07-24] MEDS: Aspirin/APAP/Caffeine Tab (Excedrin Migraine) PO PRN ×2 (16:53→23:00)
[2020-07-24] MEDS: traZODone HCl 50 MG TAB PO SCH (21:50)
[2020-07-24] MEDS: Atorvastatin Calcium 40 MG TAB PO SCH (21:50)
[2020-07-25] MEDS: Ipratropium Oral Inhaler INH SCH ×4 (08:17→19:36)
[2020-07-25] MEDS: Enoxaparin Sodium 40 MG/0.4 ML SYRINGE SC SCH (08:28)
[2020-07-25] MEDS: Pregabalin 75 MG CAP PO SCH ×3 (08:31→21:36)
[2020-07-25] MEDS: tiZANidine HCl 4 MG TAB PO SCH ×2 (08:32→21:35)
[2020-07-25] MEDS: Amlodipine 5 MG TAB PO SCH (08:35)
[2020-07-25] MEDS: Lisinopril 5 MG TAB PO SCH ×2 (08:35→21:39)
[2020-07-25] MEDS: Aspirin/APAP/Caffeine Tab (Excedrin Migraine) PO PRN ×2 (10:06→19:15)
[2020-07-25] MEDS: Acetaminophen 325 MG TAB PO PRN (14:14)
[2020-07-25] MEDS: traZODone HCl 50 MG TAB PO SCH (21:35)
[2020-07-25] MEDS: Atorvastatin Calcium 40 MG TAB PO SCH (21:35)
[2020-07-26] MEDS: Ipratropium Oral Inhaler INH SCH ×4 (08:22→21:34)
[2020-07-26] MEDS: Amlodipine 5 MG TAB PO SCH (08:42)
[2020-07-26] MEDS: Pregabalin 75 MG CAP PO SCH ×3 (08:43→19:59)
[2020-07-26] MEDS: tiZANidine HCl 4 MG TAB PO SCH ×2 (08:43→19:59)
[2020-07-26] MEDS: Enoxaparin Sodium 40 MG/0.4 ML SYRINGE SC SCH (08:43)
[2020-07-26] MEDS: Lisinopril 5 MG TAB PO SCH ×2 (08:43→20:03)
[2020-07-26] MEDS: Aspirin/APAP/Caffeine Tab (Excedrin Migraine) PO PRN ×2 (13:30→20:00)
[2020-07-26] MEDS: Atorvastatin Calcium 40 MG TAB PO SCH (19:58)
[2020-07-26] MEDS: traZODone HCl 50 MG TAB PO SCH (21:38)
[2020-07-27] MEDS: Ipratropium Oral Inhaler INH SCH ×4 (07:38→21:07)
[2020-07-27] MEDS: Pregabalin 75 MG CAP PO SCH ×3 (09:10→20:35)
[2020-07-27] MEDS: Amlodipine 5 MG TAB PO SCH (09:10)
[2020-07-27] MEDS: Lisinopril 5 MG TAB PO SCH ×2 (09:10→20:37)
[2020-07-27] MEDS: Enoxaparin Sodium 40 MG/0.4 ML SYRINGE SC SCH (09:11)
[2020-07-27] MEDS: tiZANidine HCl 4 MG TAB PO SCH ×2 (09:12→20:36)
[2020-07-27] MEDS: Aspirin/APAP/Caffeine Tab (Excedrin Migraine) PO PRN ×2 (10:44→17:34)
[2020-07-27 14:35] VITALS: BMI 23.8
[2020-07-27] MEDS: Atorvastatin Calcium 40 MG TAB PO SCH (20:36)
[2020-07-27] MEDS: traZODone HCl 50 MG TAB PO SCH (22:04)
[2020-07-28] MEDS: Ipratropium Oral Inhaler INH SCH ×3 (08:00→14:15)
[2020-07-28] MEDS: Pregabalin 75 MG CAP PO SCH ×2 (08:41→15:25)
[2020-07-28] MEDS: Enoxaparin Sodium 40 MG/0.4 ML SYRINGE SC SCH (08:41)
[2020-07-28] MEDS: tiZANidine HCl 4 MG TAB PO SCH (08:41)
[2020-07-28] MEDS: Amlodipine 5 MG TAB PO SCH (08:44)
[2020-07-28 08:45] VITALS: BP 107/55
[2020-07-28] MEDS: Lisinopril 5 MG TAB PO SCH (08:45)
[2020-07-28 10:16] VITALS: TEMP 97.8
[2020-07-28] MEDS: Acetaminophen 325 MG TAB PO PRN (10:53)
[2020-07-28] MEDS: Aspirin/APAP/Caffeine Tab (Excedrin Migraine) PO PRN ×2 (11:40→18:03)
== END 2020-07-28 18:15 | DRG 189 ==
LOC: ERS 14:09 → 2NO 16:15 → ONC 07-22 16:13
PROVIDERS: ADMIT Family Medicine; ATTEND Family Medicine
DX: J96.01 Acute respiratory failure with hypoxia (principal); E87.0 Hyperosmolality and hypernatremia; Z66 Do not resuscitate; Z20.822 Contact with and (suspected) exposure to COVID-19; J44.1 Chronic obstructive pulmonary disease with (acute) exacerbation; G89.29 Other chronic pain; I10 Essential (primary) hypertension; M06.9 Rheumatoid arthritis, unspecified; N28.1 Cyst of kidney, acquired; F41.9 Anxiety disorder, unspecified; F32.9 Major depressive disorder, single episode, unspecified; G25.81 Restless legs syndrome; I25.10 Atherosclerotic heart disease of native coronary artery without angina pectoris; M79.7 Fibromyalgia; R77.8 Other specified abnormalities of plasma proteins; Z90.710 Acquired absence of both cervix and uterus; Z95.2 Presence of prosthetic heart valve; Z95.1 Presence of aortocoronary bypass graft; Z87.891 Personal history of nicotine dependence; Z79.899 Other long term (current) drug therapy
CPT/HCPCS: 0240U; 36415; 71045; 80048; 80053; 82550; 82553; 83605; 84145; 84484; 85025; 87040; 87149; 87449; 87633; 87798; 87899; 93005; 94640; 96365; 96367; 96375; J0456; J0696; J1100; J1650; J2270; J7512; J7620

== ENCOUNTER 2020-12-23 10:31 | Outpatient (CLI) | payer MEDICARE, MEDICAID | END 2020-12-23 10:32 | disposition home or self-care (01) | LOC: MRI 10:31 | PROVIDERS: ATTEND Nurse Practitioner Acute Care | DX: G43.009 Migraine without aura, not intractable, without status migrainosus (principal); I67.89 Other cerebrovascular disease | CPT/HCPCS: 70553 ==

== ENCOUNTER 2021-04-14 21:34 | Inpatient (IN) | payer MEDICARE, MEDICAID ==
[2021-04-14 22:13] LABS: Bilirubin Negative (Negative); Blood, Urine Negative (Negative); Clarity Clear (Clear); Glucose, Urine (Dipstick) Normal (Negative); Ketone, Urine Negative (Negative); Leukocyte Negative Leu/uL (Negative); Nitrite Negative (Negative); Protein, Urine (Dipstick) Negative (Neg-Trace); Specific Gravity, Urine 1.017 (1.002-1.036); Urobilinogen Normal mg/dL (Less than 2)
[2021-04-14] MEDS ORDERED: Albuterol Sulfate 1.25 MG/3 ML NEB ONE (22:23)
[2021-04-14] MEDS ORDERED: methylPREDNISolone Sod Succ/PF 125 MG/2 ML VIAL ONE (22:31)
[2021-04-14 22:34] LABS: %Basophils 0.2 % (0.0-1.0); %Eosinophils 0.7 % (0.0-10.0); %Lymphocytes 13.1 % (21.0-51.0); %Monocytes 8.8 % (0.0-10.0); %Neutrophils 77.2 % (42.0-75.0); Hemoglobin 8.8 g/dL (12.0-16.0); Mean Corpuscular HGB CONC 32.9 g/dL (32.0-36.0); Mean Corpuscular Hemoglobin 31.1 pg (27.0-31.0); Mean Corpuscular Volume 94.6 fL (78.0-98.0); Mean Platelet Volume 7.7 fL (7.4-10.4); Platelet Count 162 thou/uL (130-400); RBC Distribution Width 15.5 % (11.5-14.5); Red Blood Cell (RBC) Count 2.83 mill/uL (4.20-5.40); White Blood Cell (WBC) Count 4.6 thou/uL (4.8-10.8)
[2021-04-14 22:35] LABS: #Lymphocytes 0.6 thou/uL (1.20-3.40); #Monocytes 0.4 thou/uL (0.11-0.59); #Neutrophils 3.6 thou/uL (1.40-6.50)
[2021-04-14 22:58] LABS: ALT (SGPT) 11 U/L (8-55); AST (SGOT) 11 U/L (5-34); Albumin 3.1 g/dL (3.4-4.8); Alkaline Phosphatase 72 U/L (40-110); Anion Gap 7 mmol/L (10-20); BUN (Urea Nitrogen) 19 mg/dL (9.8-20.1); Bilirubin, Total 0.2 mg/dL (0.2-1.2); Calc. Creatinine Clearance 0 mL/min (70-130); Carbon Dioxide 27 mmol/L (23-31); Chloride 106 mmol/L (98-107); Globulin 2.6 g/dL (2.4-3.5); Glucose 94 mg/dL (83-110); Potassium 5.3 mmol/L (3.5-5.1); Protein, Total 5.7 g/dL (5.8-8.1); Sodium 135 mmol/L (136-145)
[2021-04-15 00:36] LABS: SARS-CoV-2 NAA Rapid Test Not Detected (NotDetected)
[2021-04-15] MEDS ORDERED: Furosemide 40 MG/4 ML VIAL ONE (01:43)
[2021-04-15 04:39] VITALS: BMI 30.6
[2021-04-15] MEDS ORDERED: Bisacodyl 5 MG TAB PO PRN (08:16)
[2021-04-15] MEDS ORDERED: predniSONE 20 MG TAB PO SCH (09:00)
[2021-04-15] MEDS: Acetaminophen/Codeine 30-300mg Tablet PO SCH ×2 (09:35→20:17)
[2021-04-15] MEDS: Enoxaparin Sodium 40 MG/0.4 ML SYRINGE SC SCH (09:35)
[2021-04-15] MEDS: Aspirin 81 mg Enteric Coated Tablet PO SCH (09:36)
[2021-04-15] MEDS: Doxycycline 100 MG CAP PO SCH ×2 (09:36→20:15)
[2021-04-15] MEDS: clonazePAM 0.5 MG TAB PO SCH ×2 (09:36→20:16)
[2021-04-15] MEDS: Loratadine 10 MG TAB PO SCH (09:37)
[2021-04-15] MEDS: Lisinopril 5 MG TAB PO SCH (09:37)
[2021-04-15] MEDS: Furosemide 40 MG TAB PO SCH (09:38)
[2021-04-15] MEDS: Divalproex Sodium 250 MG (DR) TAB PO SCH (09:39)
[2021-04-15] MEDS: Pregabalin 75 MG CAP PO SCH ×2 (09:40→20:15)
[2021-04-15 10:15] LABS: Anion Gap 13 mmol/L (10-20); BUN (Urea Nitrogen) 20 mg/dL (9.8-20.1); Calc. Creatinine Clearance 62 mL/min (70-130); Calcium 8.8 mg/dL (7.8-10.44); Carbon Dioxide 25 mmol/L (23-31); Chloride 104 mmol/L (98-107); Glucose 116 mg/dL (83-110); Potassium 5.2 mmol/L (3.5-5.1); Sodium 137 mmol/L (136-145)
[2021-04-15] MEDS: Meloxicam 15 MG TAB PO SCH (10:45)
[2021-04-15] MEDS: Spironolactone 25 MG TAB PO SCH (10:45)
[2021-04-15 12:25] LABS: Band 1 % (5-11); Hemoglobin 9.5 g/dL (12.0-16.0); Lymphocytes 8 % (21-51); MDiff Complete? YES; Mean Corpuscular HGB CONC 33.6 g/dL (32.0-36.0); Mean Corpuscular Hemoglobin 30.6 pg (27.0-31.0); Mean Corpuscular Volume 91.2 fL (78.0-98.0); Monocytes 2 % (0-10); Neutrophil 88 % (42-75); Ovalocytes SLIGHT = 2-5 cells (100X) (0-1/hpf); Platelet Count 153 thou/uL (130-400); Platelet Morphology Comment Appears Adequate; Polychromasia SLIGHT = 2-3 cells (100X) (0-2/hpf); RBC Distribution Width 15.2 % (11.5-14.5); Red Blood Cell (RBC) Count 3.11 mill/uL (4.20-5.40); White Blood Cell (WBC) Count 3.4 thou/uL (4.8-10.8)
[2021-04-15] MEDS: tiZANidine HCl 4 MG TAB PO PRN (15:18)
[2021-04-15] MEDS: Acetaminophen 325 MG TAB PO PRN (17:20)
[2021-04-15] MEDS: guaiFENesin ER 600 MG TAB PO PRN (17:20)
[2021-04-15] MEDS: traZODone HCl 50 MG TAB PO SCH (20:16)
[2021-04-15] MEDS: Atorvastatin Calcium 40 MG TAB PO SCH (20:16)
[2021-04-15] MEDS: Amitriptyline HCl 25 MG TAB PO SCH (20:16)
[2021-04-15] MEDS: Ketorolac Tromethamine 10 MG TAB PO PRN (23:45)
[2021-04-16] MEDS: Acetaminophen 325 MG TAB PO PRN (04:38)
[2021-04-16 07:04] LABS: Anion Gap 13 mmol/L (10-20); BUN (Urea Nitrogen) 25 mg/dL (9.8-20.1); Calc. Creatinine Clearance 56 mL/min (70-130); Calcium 8.3 mg/dL (7.8-10.44); Carbon Dioxide 26 mmol/L (23-31); Chloride 101 mmol/L (98-107); Glucose 116 mg/dL (83-110); Potassium 4.5 mmol/L (3.5-5.1); Sodium 135 mmol/L (136-145)
[2021-04-16 07:17] LABS: #Lymphocytes 0.7 thou/uL (1.20-3.40); #Monocytes 0.4 thou/uL (0.11-0.59); #Neutrophils 2.2 thou/uL (1.40-6.50); %Monocytes 10.9 % (0.0-10.0); %Neutrophils 68.1 % (42.0-75.0); Mean Corpuscular HGB CONC 32.7 g/dL (32.0-36.0); Mean Corpuscular Hemoglobin 30.1 pg (27.0-31.0); Mean Corpuscular Volume 92.1 fL (78.0-98.0); Mean Platelet Volume 8.1 fL (7.4-10.4); Platelet Count 158 thou/uL (130-400); RBC Distribution Width 15.1 % (11.5-14.5); Red Blood Cell (RBC) Count 2.65 mill/uL (4.20-5.40); White Blood Cell (WBC) Count 3.2 thou/uL (4.8-10.8)
[2021-04-16] MEDS: Meloxicam 15 MG TAB PO SCH (08:08)
[2021-04-16] MEDS: Doxycycline 100 MG CAP PO SCH ×2 (08:09→20:22)
[2021-04-16] MEDS: clonazePAM 0.5 MG TAB PO SCH ×2 (08:09→20:24)
[2021-04-16] MEDS: Spironolactone 25 MG TAB PO SCH (08:09)
[2021-04-16] MEDS: Furosemide 40 MG TAB PO SCH (08:09)
[2021-04-16] MEDS: Loratadine 10 MG TAB PO SCH (08:10)
[2021-04-16] MEDS: Divalproex Sodium 250 MG (DR) TAB PO SCH (08:10)
[2021-04-16] MEDS: Aspirin 81 mg Enteric Coated Tablet PO SCH (08:10)
[2021-04-16] MEDS: Pregabalin 75 MG CAP PO SCH ×2 (08:11→20:22)
[2021-04-16] MEDS: Acetaminophen/Codeine 30-300mg Tablet PO SCH ×2 (08:11→20:23)
[2021-04-16] MEDS: predniSONE 20 MG TAB PO SCH (08:11)
[2021-04-16] MEDS: Lisinopril 5 MG TAB PO SCH (08:11)
[2021-04-16] MEDS: Enoxaparin Sodium 40 MG/0.4 ML SYRINGE SC SCH (08:12)
[2021-04-16] MEDS: Ketorolac Tromethamine 10 MG TAB PO PRN (14:08)
[2021-04-16] MEDS: guaiFENesin ER 600 MG TAB PO PRN (15:41)
[2021-04-16] MEDS: Ondansetron ODT 4 MG TAB PO PRN (18:16)
[2021-04-16] MEDS: traZODone HCl 50 MG TAB PO SCH (20:23)
[2021-04-16] MEDS: Atorvastatin Calcium 40 MG TAB PO SCH (20:23)
[2021-04-16] MEDS: Amitriptyline HCl 25 MG TAB PO SCH (20:24)
[2021-04-17 07:37] LABS: #Basophils 0.1 thou/uL (0.0-0.2); #Eosinphils 0.2 thou/uL (0.0-0.7); #Lymphocytes 0.9 thou/uL (1.20-3.40); #Monocytes 0.4 thou/uL (0.11-0.59); #Neutrophils 3.6 thou/uL (1.40-6.50); %Basophils 1.4 % (0.0-1.0); %Eosinophils 3.2 % (0.0-10.0); %Lymphocytes 17.9 % (21.0-51.0); %Monocytes 8.2 % (0.0-10.0); %Neutrophils 69.3 % (42.0-75.0); Mean Corpuscular HGB CONC 32.2 g/dL (32.0-36.0); Mean Corpuscular Hemoglobin 30.2 pg (27.0-31.0); Mean Corpuscular Volume 93.8 fL (78.0-98.0); Mean Platelet Volume 8.1 fL (7.4-10.4); Platelet Count 201 thou/uL (130-400); RBC Distribution Width 15.4 % (11.5-14.5); White Blood Cell (WBC) Count 5.1 thou/uL (4.8-10.8)
[2021-04-17] MEDS: Meloxicam 15 MG TAB PO SCH (08:18)
[2021-04-17] MEDS: Enoxaparin Sodium 40 MG/0.4 ML SYRINGE SC SCH (08:18)
[2021-04-17] MEDS: Doxycycline 100 MG CAP PO SCH ×2 (08:18→20:28)
[2021-04-17] MEDS: Spironolactone 25 MG TAB PO SCH (08:18)
[2021-04-17] MEDS: Pregabalin 75 MG CAP PO SCH ×3 (08:19→21:54)
[2021-04-17] MEDS: Lisinopril 5 MG TAB PO SCH (08:19)
[2021-04-17] MEDS: Acetaminophen/Codeine 30-300mg Tablet PO SCH ×2 (08:19→20:32)
[2021-04-17] MEDS: Loratadine 10 MG TAB PO SCH (08:20)
[2021-04-17] MEDS: clonazePAM 0.5 MG TAB PO SCH ×3 (08:20→21:55)
[2021-04-17] MEDS: Aspirin 81 mg Enteric Coated Tablet PO SCH (08:20)
[2021-04-17] MEDS: predniSONE 20 MG TAB PO SCH (08:20)
[2021-04-17] MEDS: Divalproex Sodium 250 MG (DR) TAB PO SCH (08:20)
[2021-04-17 09:05] LABS: Anion Gap 14 mmol/L (10-20); BUN (Urea Nitrogen) 27 mg/dL (9.8-20.1); Calc. Creatinine Clearance 47 mL/min (70-130); Calcium 9.1 mg/dL (7.8-10.44); Carbon Dioxide 30 mmol/L (23-31); Chloride 101 mmol/L (98-107); Glucose 97 mg/dL (83-110); Potassium 4.8 mmol/L (3.5-5.1); Sodium 140 mmol/L (136-145)
[2021-04-17] MEDS: Nicotine 7 MG PATCH TD SCH (13:53)
[2021-04-17] MEDS: guaiFENesin ER 600 MG TAB PO PRN (14:57)
[2021-04-17] MEDS: Acetaminophen 325 MG TAB PO PRN (14:57)
[2021-04-17] MEDS: Amitriptyline HCl 25 MG TAB PO SCH (20:28)
[2021-04-17] MEDS: Atorvastatin Calcium 40 MG TAB PO SCH (20:28)
[2021-04-17] MEDS: traZODone HCl 50 MG TAB PO SCH (20:33)
[2021-04-17] MEDS: Ketorolac Tromethamine 10 MG TAB PO PRN (22:06)
[2021-04-18] MEDS: Loratadine 10 MG TAB PO SCH (05:22)
[2021-04-18] MEDS: Doxycycline 100 MG CAP PO SCH (08:02)
[2021-04-18] MEDS: Meloxicam 15 MG TAB PO SCH (08:02)
[2021-04-18] MEDS: Aspirin 81 mg Enteric Coated Tablet PO SCH (08:02)
[2021-04-18] MEDS: Divalproex Sodium 250 MG (DR) TAB PO SCH (08:02)
[2021-04-18] MEDS: Pregabalin 75 MG CAP PO SCH ×2 (08:02→20:22)
[2021-04-18] MEDS: Enoxaparin Sodium 40 MG/0.4 ML SYRINGE SC SCH (08:02)
[2021-04-18] MEDS: predniSONE 20 MG TAB PO SCH (08:03)
[2021-04-18] MEDS: Acetaminophen/Codeine 30-300mg Tablet PO SCH ×2 (08:03→20:20)
[2021-04-18] MEDS: Spironolactone 25 MG TAB PO SCH (08:03)
[2021-04-18] MEDS: clonazePAM 0.5 MG TAB PO SCH ×2 (08:04→20:23)
[2021-04-18] MEDS: Lisinopril 5 MG TAB PO SCH (08:04)
[2021-04-18] MEDS: SUMAtriptan Succinate 50 MG TAB PO PRN (09:39)
[2021-04-18] MEDS: Acetaminophen 325 MG TAB PO PRN (10:25)
[2021-04-18] MEDS: Nicotine 7 MG PATCH TD SCH (14:48)
[2021-04-18] MEDS: Atorvastatin Calcium 40 MG TAB PO SCH (20:19)
[2021-04-18] MEDS: traZODone HCl 50 MG TAB PO SCH (20:19)
[2021-04-18] MEDS: cefTRIAXone\\ROCEPHIN 1 GM in Sodium Chloride 0.9% 100 ML IVPB SCH (20:23)
[2021-04-18] MEDS: Amitriptyline HCl 25 MG TAB PO SCH (20:23)
[2021-04-19] MEDS: Pregabalin 75 MG CAP PO SCH ×2 (08:25→20:23)
[2021-04-19] MEDS: Acetaminophen/Codeine 30-300mg Tablet PO SCH ×2 (08:25→20:22)
[2021-04-19] MEDS: Spironolactone 25 MG TAB PO SCH (08:26)
[2021-04-19] MEDS: Aspirin 81 mg Enteric Coated Tablet PO SCH (08:26)
[2021-04-19] MEDS: Meloxicam 15 MG TAB PO SCH (08:26)
[2021-04-19] MEDS: predniSONE 20 MG TAB PO SCH (08:26)
[2021-04-19] MEDS: Loratadine 10 MG TAB PO SCH (08:27)
[2021-04-19] MEDS: clonazePAM 0.5 MG TAB PO SCH ×2 (08:27→20:23)
[2021-04-19] MEDS: Lisinopril 5 MG TAB PO SCH (08:27)
[2021-04-19] MEDS: Enoxaparin Sodium 40 MG/0.4 ML SYRINGE SC SCH (08:27)
[2021-04-19] MEDS ORDERED: Sodium Chloride 0.9% 1,000 ML IV SCH (08:45)
[2021-04-19 10:01] LABS: #Lymphocytes 1.6 thou/uL (1.20-3.40); #Monocytes 0.4 thou/uL (0.11-0.59); #Neutrophils 1.7 thou/uL (1.40-6.50); %Basophils 0.9 % (0.0-1.0); %Eosinophils 0.2 % (0.0-10.0); %Lymphocytes 43.4 % (21.0-51.0); %Neutrophils 45.5 % (42.0-75.0); Hemoglobin 9.3 g/dL (12.0-16.0); Mean Corpuscular HGB CONC 32.5 g/dL (32.0-36.0); Mean Corpuscular Hemoglobin 29.9 pg (27.0-31.0); Mean Corpuscular Volume 91.9 fL (78.0-98.0); Mean Platelet Volume 7.5 fL (7.4-10.4); Platelet Count 201 thou/uL (130-400); RBC Distribution Width 15.1 % (11.5-14.5); Red Blood Cell (RBC) Count 3.12 mill/uL (4.20-5.40); White Blood Cell (WBC) Count 3.7 thou/uL (4.8-10.8)
[2021-04-19 10:20] LABS: Anion Gap 10 mmol/L (10-20); BUN (Urea Nitrogen) 32 mg/dL (9.8-20.1); Calc. Creatinine Clearance 67 mL/min (70-130); Calcium 8.5 mg/dL (7.8-10.44); Carbon Dioxide 33 mmol/L (23-31); Chloride 104 mmol/L (98-107); Glucose 94 mg/dL (83-110); Potassium 4.1 mmol/L (3.5-5.1); Sodium 143 mmol/L (136-145)
[2021-04-19] MEDS: Nicotine 7 MG PATCH TD SCH (14:39)
[2021-04-19] MEDS: guaiFENesin ER 600 MG TAB PO PRN (17:11)
[2021-04-19] MEDS: Acetaminophen 325 MG TAB PO PRN (17:11)
[2021-04-19] MEDS: cefTRIAXone\\ROCEPHIN 1 GM in Sodium Chloride 0.9% 100 ML IVPB SCH (20:22)
[2021-04-19] MEDS: Atorvastatin Calcium 40 MG TAB PO SCH (20:23)
[2021-04-19] MEDS: traZODone HCl 50 MG TAB PO SCH (20:23)
[2021-04-19] MEDS: Amitriptyline HCl 25 MG TAB PO SCH (20:23)
[2021-04-20] MEDS: Enoxaparin Sodium 40 MG/0.4 ML SYRINGE SC SCH (08:31)
[2021-04-20] MEDS: Aspirin 81 mg Enteric Coated Tablet PO SCH (08:32)
[2021-04-20] MEDS: Pregabalin 75 MG CAP PO SCH ×2 (08:32→20:49)
[2021-04-20] MEDS: Acetaminophen/Codeine 30-300mg Tablet PO SCH ×2 (08:32→20:49)
[2021-04-20] MEDS: predniSONE 20 MG TAB PO SCH (08:33)
[2021-04-20] MEDS: clonazePAM 0.5 MG TAB PO SCH ×2 (08:33→20:48)
[2021-04-20] MEDS: Loratadine 10 MG TAB PO SCH (08:33)
[2021-04-20] MEDS: Lisinopril 5 MG TAB PO SCH (08:33)
[2021-04-20] MEDS: Nicotine 7 MG PATCH TD SCH (13:44)
[2021-04-20] MEDS: Atorvastatin Calcium 40 MG TAB PO SCH (20:47)
[2021-04-20] MEDS: Amitriptyline HCl 25 MG TAB PO SCH (20:48)
[2021-04-20] MEDS: traZODone HCl 50 MG TAB PO SCH (20:48)
[2021-04-20] MEDS: cefTRIAXone\\ROCEPHIN 1 GM in Sodium Chloride 0.9% 100 ML IVPB SCH (20:49)
[2021-04-20] MEDS: SUMAtriptan Succinate 50 MG TAB PO PRN (22:23)
[2021-04-21] MEDS: Acetaminophen/Codeine 30-300mg Tablet PO SCH ×2 (08:28→21:07)
[2021-04-21] MEDS: Loratadine 10 MG TAB PO SCH (08:29)
[2021-04-21] MEDS: predniSONE 20 MG TAB PO SCH (08:29)
[2021-04-21] MEDS: Lisinopril 5 MG TAB PO SCH (08:29)
[2021-04-21] MEDS: clonazePAM 0.5 MG TAB PO SCH ×2 (08:29→21:08)
[2021-04-21] MEDS: Pregabalin 75 MG CAP PO SCH ×2 (08:29→21:07)
[2021-04-21] MEDS: Aspirin 81 mg Enteric Coated Tablet PO SCH (08:29)
[2021-04-21] MEDS: Enoxaparin Sodium 40 MG/0.4 ML SYRINGE SC SCH (08:30)
[2021-04-21] MEDS: Nicotine 7 MG PATCH TD SCH (12:58)
[2021-04-21] MEDS: guaiFENesin ER 600 MG TAB PO PRN (14:13)
[2021-04-21] MEDS: Ondansetron ODT 4 MG TAB PO PRN (16:13)
[2021-04-21] MEDS: Atorvastatin Calcium 40 MG TAB PO SCH (21:07)
[2021-04-21] MEDS: Amitriptyline HCl 25 MG TAB PO SCH (21:08)
[2021-04-21] MEDS: traZODone HCl 50 MG TAB PO SCH (21:08)
[2021-04-21] MEDS: cefTRIAXone\\ROCEPHIN 1 GM in Sodium Chloride 0.9% 100 ML IVPB SCH (21:08)
[2021-04-22] MEDS: Loratadine 10 MG TAB PO SCH (09:53)
[2021-04-22] MEDS: Lisinopril 5 MG TAB PO SCH (09:53)
[2021-04-22] MEDS: clonazePAM 0.5 MG TAB PO SCH ×2 (09:54→20:52)
[2021-04-22] MEDS: Aspirin 81 mg Enteric Coated Tablet PO SCH (09:54)
[2021-04-22] MEDS: predniSONE 20 MG TAB PO SCH (09:54)
[2021-04-22] MEDS: Pregabalin 75 MG CAP PO SCH ×2 (09:54→20:52)
[2021-04-22] MEDS: Acetaminophen/Codeine 30-300mg Tablet PO SCH ×2 (09:54→20:52)
[2021-04-22] MEDS: Enoxaparin Sodium 40 MG/0.4 ML SYRINGE SC SCH (09:55)
[2021-04-22] MEDS ORDERED: Iopamidol 370 76% 100 ML VIAL ONE (10:12)
[2021-04-22] MEDS: Nicotine 7 MG PATCH TD SCH (16:55)
[2021-04-22 18:24] LABS: SARS-CoV-2 PCR by NAA Not Detected (NotDetected)
[2021-04-22] MEDS: Acetaminophen 325 MG TAB PO PRN (18:39)
[2021-04-22] MEDS: tiZANidine HCl 4 MG TAB PO PRN (18:40)
[2021-04-22 20:50] VITALS: BP 106/73; TEMP 98.8
[2021-04-22] MEDS: Atorvastatin Calcium 40 MG TAB PO SCH (20:52)
[2021-04-22] MEDS: traZODone HCl 50 MG TAB PO SCH (20:52)
[2021-04-22] MEDS: Amitriptyline HCl 25 MG TAB PO SCH (20:52)
== END 2021-04-22 21:00 | DRG 190 ==
LOC: ERS 21:34 → T4-A 04-15 02:00 → OBSVTOIN 04-18 15:39
PROVIDERS: ADMIT Internal Medicine; ATTEND Internal Medicine
DX: J44.1 Chronic obstructive pulmonary disease with (acute) exacerbation (principal); J96.01 Acute respiratory failure with hypoxia; J96.02 Acute respiratory failure with hypercapnia; Q61.3 Polycystic kidney, unspecified; Z20.822 Contact with and (suspected) exposure to COVID-19; F17.210 Nicotine dependence, cigarettes, uncomplicated; G89.29 Other chronic pain; I10 Essential (primary) hypertension; M06.9 Rheumatoid arthritis, unspecified; I25.10 Atherosclerotic heart disease of native coronary artery without angina pectoris; K21.9 Gastro-esophageal reflux disease without esophagitis; E78.5 Hyperlipidemia, unspecified; M79.7 Fibromyalgia; F41.9 Anxiety disorder, unspecified; F31.9 Bipolar disorder, unspecified; G25.81 Restless legs syndrome; Z82.49 Family history of ischemic heart disease and other diseases of the circulatory system; Z82.3 Family history of stroke; I25.2 Old myocardial infarction; Z90.710 Acquired absence of both cervix and uterus; Z95.4 Presence of other heart-valve replacement; Z95.1 Presence of aortocoronary bypass graft
CPT/HCPCS: 0240U; 36415; 51701; 71045; 71260; 80048; 80053; 81003; 83605; 83880; 84443; 84484; 85025; 87040; 87086; 87804; 93005; 93306; 94640; 96372; 96374; 96375; G0378; J0696; J1650; J1940; J1956; J2930; J3490; J7512; J7620; Q0162; Q9967; U0003; U0005

== ENCOUNTER 2021-08-29 23:51 | Inpatient (IN) | payer MEDICARE, MEDICAID ==
[2021-08-30] MEDS ORDERED: Acetaminophen 325 MG TAB PO PRN (00:33)
[2021-08-30] MEDS ORDERED: Senokot S 8.6-50 MG TAB PO PRN (00:33)
[2021-08-30] MEDS ORDERED: Ondansetron ODT 4 MG TAB PO PRN (00:33)
[2021-08-30] MEDS ORDERED: Polyethylene Glycol 3350 17 GM Packet PO PRN (01:12)
[2021-08-30 01:21] VITALS: BMI 29.9
[2021-08-30] MEDS: Lactated Ringer's 1,000 ML IV SCH ×2 (01:48→16:38)
[2021-08-30] MEDS ORDERED: Bisacodyl 5 MG TAB PO PRN (02:49)
[2021-08-30 03:29] LABS: Creatinine, Urine 36.27 mg/dL (47-110)
[2021-08-30 04:06] LABS: ALT (SGPT) 24 U/L (8-55); AST (SGOT) 50 U/L (5-34); Albumin 2.9 g/dL (3.4-4.8); Alkaline Phosphatase 443 U/L (40-110); Anion Gap 16 mmol/L (10-20); BUN (Urea Nitrogen) 31 mg/dL (9.8-20.1); Bilirubin, Total 1.6 mg/dL (0.2-1.2); Calc. Creatinine Clearance 20 mL/min (70-130); Calcium 7.5 mg/dL (7.8-10.44); Carbon Dioxide 20 mmol/L (23-31); Chloride 107 mmol/L (98-107); Globulin 3.5 g/dL (2.4-3.5); Glucose 100 mg/dL (83-110); Potassium 3.9 mmol/L (3.5-5.1); Protein, Total 6.4 g/dL (5.8-8.1); Sodium 139 mmol/L (136-145)
[2021-08-30 04:20] LABS: Band 10 % (5-11); Hemoglobin 9.6 g/dL (12.0-16.0); Hypochromia SLIGHT = 6-15 cells (100X) (0-5/hpf); Lymphocytes 16 % (21-51); MDiff Complete? YES; Mean Corpuscular HGB CONC 33.2 g/dL (32.0-36.0); Mean Corpuscular Volume 96.3 fL (78.0-98.0); Mean Platelet Volume 8.4 fL (7.4-10.4); Monocytes 12 % (0-10); Neutrophil 62 % (42-75); Platelet Count 219 thou/uL (130-400); Platelet Morphology Comment Appears Adequate; RBC Distribution Width 14.7 % (11.5-14.5); Red Blood Cell (RBC) Count 3.01 mill/uL (4.20-5.40); White Blood Cell (WBC) Count 3.5 thou/uL (4.8-10.8)
[2021-08-30] MEDS: Divalproex Sodium 250 MG (DR) TAB PO SCH (09:48)
[2021-08-30] MEDS: hydrALAZINE 25 MG TAB PO SCH ×3 (09:48→20:00)
[2021-08-30] MEDS: Aspirin 81 mg Enteric Coated Tablet PO SCH (09:48)
[2021-08-30] MEDS: Acetaminophen/Codeine 30-300mg Tablet PO SCH ×2 (09:48→19:59)
[2021-08-30] MEDS: predniSONE 50 MG TAB PO SCH (09:48)
[2021-08-30] MEDS: Famotidine 20 MG TAB PO SCH (09:48)
[2021-08-30] MEDS: clonazePAM 0.5 MG TAB PO SCH ×2 (09:48→20:00)
[2021-08-30] MEDS: Pregabalin 75 MG CAP PO SCH ×2 (09:49→19:59)
[2021-08-30] MEDS: FLUoxetine HCl 10 MG CAP PO SCH (09:49)
[2021-08-30] MEDS: Heparin 5,000 UNITS/ML VIAL SC SCH ×3 (09:50→20:00)
[2021-08-30 11:38] LABS: SARS-CoV-2 PCR by NAA Not Detected (NotDetected)
[2021-08-30 20:03] VITALS: BP 159/81
[2021-08-30] MEDS ORDERED: Atorvastatin Calcium 40 MG TAB PO SCH (21:00)
[2021-08-30] MEDS ORDERED: cefTRIAXone\\ROCEPHIN 1 GM in Sodium Chloride 0.9% 100 ML IVPB SCH (21:00)
[2021-08-30] MEDS ORDERED: traZODone HCl 50 MG TAB PO SCH (21:00)
[2021-08-31] MEDS: Lactated Ringer's 1,000 ML IV SCH (03:10)
[2021-08-31 04:18] LABS: #Lymphocytes 0.6 thou/uL (1.20-3.40); #Monocytes 0.2 thou/uL (0.11-0.59); #Neutrophils 2.8 thou/uL (1.40-6.50); %Eosinophils 0.5 % (0.0-10.0); %Lymphocytes 17.6 % (21.0-51.0); %Monocytes 5.1 % (0.0-10.0); %Neutrophils 76.8 % (42.0-75.0); Hemoglobin 10.2 g/dL (12.0-16.0); Mean Corpuscular HGB CONC 32.1 g/dL (32.0-36.0); Mean Corpuscular Hemoglobin 31.4 pg (27.0-31.0); Mean Corpuscular Volume 97.9 fL (78.0-98.0); Mean Platelet Volume 8.3 fL (7.4-10.4); Platelet Count 242 thou/uL (130-400); RBC Distribution Width 14.8 % (11.5-14.5); Red Blood Cell (RBC) Count 3.26 mill/uL (4.20-5.40); White Blood Cell (WBC) Count 3.6 thou/uL (4.8-10.8)
[2021-08-31 04:33] LABS: ALT (SGPT) 22 U/L (8-55); AST (SGOT) 32 U/L (5-34); Albumin 2.8 g/dL (3.4-4.8); Alkaline Phosphatase 397 U/L (40-110); Anion Gap 18 mmol/L (10-20); BUN (Urea Nitrogen) 23 mg/dL (9.8-20.1); Bilirubin, Total 0.9 mg/dL (0.2-1.2); Calc. Creatinine Clearance 37 mL/min (70-130); Calcium 8.4 mg/dL (7.8-10.44); Carbon Dioxide 18 mmol/L (23-31); Chloride 110 mmol/L (98-107); Globulin 3.9 g/dL (2.4-3.5); Glucose 98 mg/dL (83-110); Protein, Total 6.7 g/dL (5.8-8.1); Sodium 142 mmol/L (136-145)
[2021-08-31] MEDS: Famotidine 20 MG TAB PO SCH (09:41)
[2021-08-31] MEDS: Pregabalin 75 MG CAP PO SCH (09:41)
[2021-08-31] MEDS: FLUoxetine HCl 10 MG CAP PO SCH (09:41)
[2021-08-31] MEDS: hydrALAZINE 25 MG TAB PO SCH (09:41)
[2021-08-31] MEDS: Aspirin 81 mg Enteric Coated Tablet PO SCH (09:41)
[2021-08-31] MEDS: Divalproex Sodium 250 MG (DR) TAB PO SCH (09:41)
[2021-08-31] MEDS: Acetaminophen/Codeine 30-300mg Tablet PO SCH (09:42)
[2021-08-31] MEDS: predniSONE 50 MG TAB PO SCH (09:42)
[2021-08-31] MEDS: clonazePAM 0.5 MG TAB PO SCH (09:42)
[2021-08-31] MEDS: Heparin 5,000 UNITS/ML VIAL SC SCH (09:44)
[2021-08-31 11:41] VITALS: TEMP 97.1
== END 2021-08-31 13:55 | disposition hospice, home (50) | DRG 871 ==
LOC: IMCU/EMU 08-30 00:42
PROVIDERS: ADMIT Internal Medicine; ATTEND Family Medicine
DX: A41.51 Sepsis due to Escherichia coli [E. coli] (principal); G93.41 Metabolic encephalopathy; N39.0 Urinary tract infection, site not specified; N17.9 Acute kidney failure, unspecified; Z20.822 Contact with and (suspected) exposure to COVID-19; N28.1 Cyst of kidney, acquired; J44.9 Chronic obstructive pulmonary disease, unspecified; I25.10 Atherosclerotic heart disease of native coronary artery without angina pectoris; M79.7 Fibromyalgia; E78.5 Hyperlipidemia, unspecified; G25.81 Restless legs syndrome; F41.9 Anxiety disorder, unspecified; F31.9 Bipolar disorder, unspecified; N18.31 Chronic kidney disease, stage 3a; D63.1 Anemia in chronic kidney disease; I12.9 Hypertensive chronic kidney disease with stage 1 through stage 4 chronic kidney disease, or unspecified chronic kidney disease; Z79.899 Other long term (current) drug therapy; Z79.51 Long term (current) use of inhaled steroids; Z79.52 Long term (current) use of systemic steroids; Z79.82 Long term (current) use of aspirin; I25.2 Old myocardial infarction; Z90.710 Acquired absence of both cervix and uterus; Z98.890 Other specified postprocedural states; Z95.1 Presence of aortocoronary bypass graft; Z87.891 Personal history of nicotine dependence
CPT/HCPCS: 36415; 80053; 81001; 82570; 84145; 84300; 85025; 87077; 87086; 87186; 94640; J0696; J1644; J3490; J7120; J7512; J7620; U0003; U0005

== ENCOUNTER 2022-08-02 10:22 | Emergency (ER) | payer MEDICARE, OTHER ==
[2022-08-02] MEDS ORDERED: Acetaminophen/Codeine 30-300mg Tablet ONE (10:51)
[2022-08-02 11:48] LABS: #Basophils 0.1 thou/uL (0.0-0.2); #Eosinphils 0.1 thou/uL (0.0-0.7); #Lymphocytes 1.5 thou/uL (1.20-3.40); #Monocytes 0.3 thou/uL (0.11-0.59); #Neutrophils 1.5 thou/uL (1.40-6.50); %Basophils 1.5 % (0.0-1.0); %Eosinophils 1.6 % (0.0-10.0); %Lymphocytes 43.6 % (21.0-51.0); %Monocytes 8.9 % (0.0-10.0); %Neutrophils 44.4 % (42.0-75.0); Hemoglobin 9.3 g/dL (12.0-16.0); Mean Corpuscular HGB CONC 33.8 g/dL (32.0-36.0); Mean Corpuscular Hemoglobin 33.5 pg (27.0-31.0); Mean Corpuscular Volume 99.2 fl (78.0-98.0); Platelet Count 129 10x3/uL (130-400); RBC Distribution Width 11.5 % (11.5-14.5); Red Blood Cell (RBC) Count 2.78 mill/uL (4.20-5.40); White Blood Cell (WBC) Count 3.3 10x3/uL (4.8-10.8)
[2022-08-02 12:07] LABS: ALT (SGPT) 21 U/L (8-55); AST (SGOT) 20 U/L (5-34); Albumin 3.1 g/dL (3.4-4.8); Alkaline Phosphatase 80 U/L (40-110); Anion Gap 11 mmol/L (10-20); BUN (Urea Nitrogen) 26 mg/dL (9.8-20.1); Bilirubin, Total 0.2 mg/dL (0.2-1.2); Calc. Creatinine Clearance 0 mL/min (70-130); Calcium 7.8 mg/dL (7.8-10.44); Carbon Dioxide 23 mmol/L (23-31); Chloride 107 mmol/L (98-107); Estimated GFR 74; Globulin 2.4 g/dL (2.4-3.5); Glucose 74 mg/dL (83-110); Potassium 4.8 mmol/L (3.5-5.1); Protein, Total 5.5 g/dL (5.8-8.1); Sodium 136 mmol/L (136-145)
[2022-08-02 13:16] LABS: Bilirubin Negative (Negative); Blood, Urine Negative (Negative); Clarity Clear (Clear); Glucose, Urine (Dipstick) Normal (Negative); Ketone, Urine Negative (Negative); Leukocyte Negative Leu/uL (Negative); Nitrite Negative (Negative); Protein, Urine (Dipstick) Negative (Neg-Trace); Specific Gravity, Urine 1.016 (1.002-1.036); Urobilinogen Normal mg/dL (Less than 2); pH, Urine 6.5 (5.0-9.0)
[2022-08-02] MEDS ORDERED: hydrALAZINE 25 MG TAB ONE (14:54)
[2022-08-02] MEDS ORDERED: Divalproex Sodium 250 MG (DR) TAB ONE (14:54)
[2022-08-02] MEDS ORDERED: tiZANidine HCl 4 MG TAB PO SCH (15:00)
== END 2022-08-02 15:23 ==
LOC: ERS 10:22
DX: R51.9 Headache, unspecified (principal); F17.210 Nicotine dependence, cigarettes, uncomplicated; I10 Essential (primary) hypertension; Z79.899 Other long term (current) drug therapy
CPT/HCPCS: 36415; 70450; 80053; 81003; 84484; 85025; 93005

== ENCOUNTER 2024-12-06 08:56 | Inpatient (IN) | payer MEDICAID, MEDICARE ==
[2024-12-06] MEDS ORDERED: Dextrose 50% Abboject 50 ML SYRINGE ONE (09:00)
[2024-12-06] MEDS ORDERED: NOREPINEPHRINE 8 MG/250 ML-D5W 250 ML ONE (09:11)
[2024-12-06] MEDS ORDERED: Vancomycin 1 GM/200 ML (PREMIX FOIL) BAG ONE (09:16)
[2024-12-06] MEDS ORDERED: cefTRIAXone (ROCEPHIN) 1 GM VIAL ONE (09:17)
[2024-12-06 09:27] LABS: Base Excess -17.7 mEq/L (-2.0 to +3.0); Calcium, Ionized (venous) 1.05 mmol/L (1.16-1.32); Chloride (VBG) 104 mmol/L (98-106); Hematocrit-VBG 20 % (36.0-47.0); Hemoglobin (Hb) 6.9 g/dL (11.7-16.1); Potassium (VBG) 4.24 mmol/L (3.70-5.30); Sodium 133 mmol/L (133-146)
[2024-12-06 09:29] LABS: Actual Bicarbonate (HCO3v) 10.9 mEq/L (22-28)
[2024-12-06 09:38] LABS: Hematocrit 21.8 % (36.0-47.0); Hemoglobin 6.3 g/dL (12.0-16.0); Mean Corpuscular Hemoglobin 30.9 pg (27.0-31.0); Mean Corpuscular Volume 106.9 fL (78.0-98.0); Platelet Count 92 10x3/uL (130-400); Red Blood Cell (RBC) Count 2.04 mill/uL (4.20-5.40); White Blood Cell (WBC) Count 2.77 10x3/uL (4.8-10.8)
[2024-12-06 10:03] LABS: CAUTI Indications for Culture Pelvic or flank pain; Glucose, Urine (Dipstick) Normal (Negative); Leukocyte 500 Leu/uL (Negative); Protein, Urine (Dipstick) 30 mg/dL (Neg-Trace); RBC/HPF 21-50 HPF (0-3); Specific Gravity, Urine 1.020 (1.002-1.036); WBC/HPF 21-50 HPF (0-3)
[2024-12-06 10:26] LABS: Bacteria/HPF 3+ HPF (None Seen)
[2024-12-06 10:27] LABS: Urine Culture Reflex Yes Yes; Yeast-Budding Rare HPF (None Seen)
[2024-12-06 10:31] LABS: #Basophils Less than 0.03 10x3/uL (0.0-0.2); #Eosinophils Less than 0.03 10x3/uL (0.0-0.7); #Monocytes 0.13 10x3/uL (0.11-0.59); #Neutrophils 1.85 10x3/uL (1.40-6.50); %Basophils 0.4 % (0.0-1.0); %Eosinophils 0.0 % (0.0-10.0); %Lymphocytes 21.7 % (21.0-51.0); %Monocytes 4.7 % (0.0-10.0); %Neutrophils 66.7 % (42.0-75.0); Crenated RBC SLIGHT = 1-5 cells (100X) (None Seen); Ovalocytes MODERATE= 6-15 cells (100X) (0-1/hpf); Plasma Cells 0 % (0-0); Platelet Adequacy Comment Appears Decreased; Schistocytes SLIGHT = 2-5 cells (100X) (0-1/hpf)
[2024-12-06 10:38] LABS: Globulin 1.9 g/dL (2.4-3.5)
[2024-12-06 10:39] LABS: Anion Gap 14 mmol/L (10-20); Carbon Dioxide 11 mmol/L (23-31)
[2024-12-06 10:40] LABS: Alkaline Phosphatase 61 U/L (40-110); Bilirubin, Total 0.4 mg/dL (0.3-1.2)
[2024-12-06 10:41] LABS: BUN (Urea Nitrogen) 47 mg/dL (9.8-20.1); Calc. Creatinine Clearance 0 mL/min (70-130)
[2024-12-06 10:43] LABS: ALT (SGPT) 36 U/L (Less than 34); AST (SGOT) 30 U/L (11-34)
[2024-12-06 10:55] LABS: Albumin 1.7 g/dL (3.1-4.5); Calcium 5.8 mg/dL (7.8-10.44); Chloride 108 mmol/L (98-107); Glucose 2472 mg/dL (83-110); Potassium 4.0 mmol/L (3.5-5.1); Sodium 129 mmol/L (136-145)
[2024-12-06] MEDS ORDERED: CALCIUM GLUC 1 GM/NS 50 ML IV Bag ONE (11:01)
[2024-12-06] MEDS ORDERED: Senokot S 8.6-50 MG TAB PO PRN (12:52)
[2024-12-06] MEDS ORDERED: Acetaminophen 325 MG TAB PO PRN (12:52)
[2024-12-06] MEDS ORDERED: Calcium Carbonate 500 MG ChewTAB PO PRN (12:52)
[2024-12-06] MEDS ORDERED: Electrolyte Replacement Protocol 1 EACH FS SCH (13:00)
[2024-12-06] MEDS: NOREPINEPHRINE 8 MG/250 ML-D5W 250 ML IVPB SCH (14:28)
[2024-12-06] MEDS: Albumin 25% 25 GM (100 mL) BOT IVPB SCH ×2 (14:28→18:03)
[2024-12-06] MEDS: Pantoprazole 40 MG VIAL IVP SCH (14:37)
[2024-12-06] MEDS: Sodium Bicarb 50 MEQ/50 ML Abboject 8.4% SYRINGE ONE (14:37)
[2024-12-06 15:02] LABS: Hematocrit 31.1 % (36.0-47.0); Hemoglobin 9.7 g/dL (12.0-16.0); Mean Corpuscular Hemoglobin 31.2 pg (27.0-31.0); Mean Corpuscular Volume 100.0 fL (78.0-98.0); Platelet Count 123 10x3/uL (130-400); Red Blood Cell (RBC) Count 3.11 mill/uL (4.20-5.40); White Blood Cell (WBC) Count 5.72 10x3/uL (4.8-10.8)
[2024-12-06 15:15] LABS: ALT (SGPT) 48 U/L (Less than 34); AST (SGOT) 41 U/L (11-34); Albumin 2.4 g/dL (3.1-4.5); Alkaline Phosphatase 87 U/L (40-110); Anion Gap 12 mmol/L (10-20); BUN (Urea Nitrogen) 35 mg/dL (9.8-20.1); Bilirubin, Total 0.4 mg/dL (0.3-1.2); Calc. Creatinine Clearance 0 mL/min (70-130); Calcium 6.8 mg/dL (7.8-10.44); Carbon Dioxide 13 mmol/L (23-31); Chloride 121 mmol/L (98-107); Globulin 2.4 g/dL (2.4-3.5); Glucose 141 mg/dL (83-110); Iron 10 ug/dL (50-170); Iron Binding Capacity, Total 186 mcg/dL (265-497); Potassium 3.9 mmol/L (3.5-5.1); Sodium 142 mmol/L (136-145)
[2024-12-06 15:30] LABS: Anisocytosis SLIGHT = 6-15 cells HPF (0-5); Burr Cells SLIGHT = 2-5 cells HPF (0-1); Macrocytosis SLIGHT = 6-15 cells HPF (0-5); Ovalocytes SLIGHT = 2-5 cells HPF (0-1); Platelet Adequacy Comment Platelets Decreased; Poikilocytosis SLIGHT = 6-15 cells HPF (0-5); Polychromasia SLIGHT = 2-3 cells HPF (0-2); Schistocytes SLIGHT = 2-5 cells HPF (0-1)
[2024-12-06 15:44] VITALS: BMI 19.8
[2024-12-06] MEDS ORDERED: Vancomycin Dose by Levels Sliding Scale (Wt <71) FS SCH (16:00)
[2024-12-06] MEDS: Dextrose 50% Abboject 50 ML SYRINGE SLOW IVP SCH (18:50)
[2024-12-06] MEDS: Dextrose 50% Abboject 50 ML SYRINGE ONE (19:12)
[2024-12-06 20:31] LABS: Hematocrit 33.2 % (36.0-47.0); Hemoglobin 10.9 g/dL (12.0-16.0)
[2024-12-06 20:54] LABS: Anion Gap 14 mmol/L (10-20); BUN (Urea Nitrogen) 30 mg/dL (9.8-20.1); Calc. Creatinine Clearance 24 mL/min (70-130); Calcium 6.8 mg/dL (7.8-10.44); Carbon Dioxide 19 mmol/L (23-31); Chloride 118 mmol/L (98-107); Glucose 190 mg/dL (83-110); Potassium 3.6 mmol/L (3.5-5.1); Sodium 147 mmol/L (136-145)
[2024-12-07] MEDS: Ondansetron PF 4 MG/2 ML Vial IVP PRN (04:58)
[2024-12-07 05:33] LABS: Hematocrit 33.3 % (36.0-47.0); Hemoglobin 11.0 g/dL (12.0-16.0); Mean Corpuscular Hemoglobin 30.0 pg (27.0-31.0); Mean Corpuscular Volume 90.7 fL (78.0-98.0); Platelet Count 76 10x3/uL (130-400); Red Blood Cell (RBC) Count 3.67 mill/uL (4.20-5.40); White Blood Cell (WBC) Count 5.69 10x3/uL (4.8-10.8)
[2024-12-07 05:54] LABS: Vancomycin, Random 10.7 ug/mL (See Comment)
[2024-12-07 06:12] LABS: ALT (SGPT) 45 U/L (Less than 34); AST (SGOT) 48 U/L (11-34); Albumin 3.5 g/dL (3.1-4.5); Alkaline Phosphatase 89 U/L (40-110); Anion Gap 15 mmol/L (10-20); BUN (Urea Nitrogen) 33 mg/dL (9.8-20.1); Bilirubin, Total 1.3 mg/dL (0.3-1.2); Calc. Creatinine Clearance 31 mL/min (70-130); Calcium 7.1 mg/dL (7.8-10.44); Carbon Dioxide 21 mmol/L (23-31); Chloride 114 mmol/L (98-107); Globulin 1.7 g/dL (2.4-3.5); Glucose 116 mg/dL (83-110); Magnesium 1.6 mg/dL (1.6-2.6); Potassium 2.9 mmol/L (3.5-5.1); Sodium 147 mmol/L (136-145)
[2024-12-07 07:28] LABS: Anisocytosis MODERATE=16-30 cells HPF (0-5); Burr Cells MODERATE= 6-15 cells HPF (0-1); Macrocytosis SLIGHT = 6-15 cells HPF (0-5); Ovalocytes SLIGHT = 2-5 cells HPF (0-1); Platelet Adequacy Comment Platelets Decreased; Poikilocytosis MODERATE=16-30 cells HPF (0-5); Polychromasia SLIGHT = 2-3 cells HPF (0-2)
[2024-12-07] MEDS: PNEUMOC 20-VAL CONJ-DIP CRM/PF 0.5 ML SYRINGE IM ONE (08:17)
[2024-12-07] MEDS: Pantoprazole 40 MG VIAL IVP SCH (08:17)
[2024-12-07] MEDS ORDERED: Electrolyte Replacement Protocol 1 EACH FS SCH (10:00)
[2024-12-07] MEDS: Vancomycin 1 GM Premix Bag IVPB SCH (10:32)
[2024-12-07] MEDS: Magnesium 2 GM/50 ML(in water) 2 GM in Premix 1 BAG IVPB SCH (10:40)
[2024-12-07] MEDS: Potassium Chloride 40 MEQ in Sodium Chloride 0.9% 250 ML 250 ML IVPB SCH (11:54)
[2024-12-07] MEDS: Sodium Ferric Gluconate 250 MG in Sodium Chloride 0.9% 250 ML 250 ML IVPB SCH (12:00)
[2024-12-07 23:44] LABS: Potassium 3.9 mmol/L (3.5-5.1)
[2024-12-08 07:44] LABS: #Basophils 0.05 10x3/uL (0.0-0.2); #Eosinophils Less than 0.03 10x3/uL (0.0-0.7); #Monocytes 0.44 10x3/uL (0.11-0.59); #Neutrophils 11.10 10x3/uL (1.40-6.50); %Basophils 0.4 % (0.0-1.0); %Eosinophils 0.2 % (0.0-10.0); %Lymphocytes 4.7 % (21.0-51.0); %Monocytes 3.6 % (0.0-10.0); %Neutrophils 90.8 % (42.0-75.0); Hematocrit 33.3 % (36.0-47.0); Hemoglobin 11.2 g/dL (12.0-16.0); Mean Corpuscular Hemoglobin 30.3 pg (27.0-31.0); Mean Corpuscular Volume 90.0 fL (78.0-98.0); Platelet Count 61 10x3/uL (130-400); Red Blood Cell (RBC) Count 3.70 mill/uL (4.20-5.40); White Blood Cell (WBC) Count 12.23 10x3/uL (4.8-10.8)
[2024-12-08 07:53] LABS: ALT (SGPT) 38 U/L (Less than 34); AST (SGOT) 34 U/L (11-34); Albumin 3.6 g/dL (3.1-4.5); Alkaline Phosphatase 114 U/L (40-110); Anion Gap 15 mmol/L (10-20); BUN (Urea Nitrogen) 24 mg/dL (9.8-20.1); Bilirubin, Total 0.6 mg/dL (0.3-1.2); Calc. Creatinine Clearance 58 mL/min (70-130); Calcium 7.9 mg/dL (7.8-10.44); Carbon Dioxide 22 mmol/L (23-31); Chloride 116 mmol/L (98-107); Globulin 2.0 g/dL (2.4-3.5); Glucose 105 mg/dL (83-110); Magnesium 2.4 mg/dL (1.6-2.6); Potassium 3.5 mmol/L (3.5-5.1); Sodium 149 mmol/L (136-145)
[2024-12-08 08:05] LABS: Vancomycin, Random 13.3 ug/mL (See Comment)
[2024-12-08] MEDS: Potassium Chloride 20 MEQ in Premix 1 BAG IVPB SCH (08:12)
[2024-12-08 09:44] LABS: Anisocytosis SLIGHT = 6-15 cells HPF (0-5); Burr Cells MODERATE= 6-15 cells HPF (0-1); Hypersegmented Neutrophil SLIGHT (None Seen); Platelet Adequacy Comment Platelets Decreased; Poikilocytosis SLIGHT = 6-15 cells HPF (0-5); Polychromasia SLIGHT = 2-3 cells HPF (0-2); Schistocytes SLIGHT = 2-5 cells HPF (0-1); Toxic Granulation SLIGHT
[2024-12-08] MEDS ORDERED: Vancomycin 1 GM Premix Bag IVPB SCH (10:30)
[2024-12-08] MEDS: Vancomycin HCl 500 MG in NaCl 0.9% 100 ML IV SCH ×2 (12:54→21:40)
[2024-12-08 15:42] VITALS: BMI 20.3
[2024-12-08] MEDS: Furosemide 40 MG (4 mL) VIAL SLOW IVP SCH (21:24)
[2024-12-08] MEDS: Dextrose 50% Abboject 50 ML SYRINGE SLOW IVP SCH (21:24)
[2024-12-09] MEDS: Dextrose 50% Abboject 50 ML SYRINGE SLOW IVP SCH (04:17)
[2024-12-09] MEDS: Furosemide 20 MG (2 mL) VIAL SLOW IVP SCH (05:00)
[2024-12-09 05:48] LABS: Glucose 187 mg/dL (83-110)
[2024-12-09 07:34] LABS: #Basophils 0.05 10x3/uL (0.0-0.2); #Eosinophils Less than 0.03 10x3/uL (0.0-0.7); #Monocytes 0.79 10x3/uL (0.11-0.59); #Neutrophils 14.22 10x3/uL (1.40-6.50); %Basophils 0.3 % (0.0-1.0); %Eosinophils 0.1 % (0.0-10.0); %Lymphocytes 5.1 % (21.0-51.0); %Monocytes 4.9 % (0.0-10.0); %Neutrophils 89.1 % (42.0-75.0); Hematocrit 35.1 % (36.0-47.0); Hemoglobin 11.8 g/dL (12.0-16.0); Mean Corpuscular Hemoglobin 30.3 pg (27.0-31.0); Mean Corpuscular Volume 90.0 fL (78.0-98.0); Platelet Count 78 10x3/uL (130-400); Red Blood Cell (RBC) Count 3.90 mill/uL (4.20-5.40); White Blood Cell (WBC) Count 15.97 10x3/uL (4.8-10.8)
[2024-12-09 07:48] LABS: ALT (SGPT) 38 U/L (Less than 34); AST (SGOT) 33 U/L (11-34); Albumin 3.7 g/dL (3.1-4.5); Alkaline Phosphatase 141 U/L (40-110); Anion Gap 20 mmol/L (10-20); BUN (Urea Nitrogen) 17 mg/dL (9.8-20.1); Bilirubin, Total 0.7 mg/dL (0.3-1.2); Calc. Creatinine Clearance 49 mL/min (70-130); Calcium 8.7 mg/dL (7.8-10.44); Carbon Dioxide 21 mmol/L (23-31); Chloride 112 mmol/L (98-107); Globulin 2.7 g/dL (2.4-3.5); Glucose 154 mg/dL (83-110); Potassium 3.5 mmol/L (3.5-5.1); Sodium 149 mmol/L (136-145)
[2024-12-09 08:01] LABS: CRP, High Sensitivity at Bryan Greater than 16.00 mg/dL (< or = 0.5)
[2024-12-09 08:59] LABS: Campy jejuni + coli by PCR Negative (Negative); STEC Shiga Toxin 1+2 Negative (Negative); Salmonella spp. by PCR Negative (Negative); Shigella spp + EIEC by PCR Negative (Negative)
[2024-12-09] MEDS: Potassium Chloride 20 MEQ in Premix 1 BAG IVPB SCH (09:23)
[2024-12-10 06:41] LABS: #Basophils 0.08 10x3/uL (0.0-0.2); #Eosinophils Less than 0.03 10x3/uL (0.0-0.7); #Monocytes 1.38 10x3/uL (0.11-0.59); #Neutrophils 12.66 10x3/uL (1.40-6.50); %Basophils 0.5 % (0.0-1.0); %Eosinophils 0.1 % (0.0-10.0); %Lymphocytes 7.3 % (21.0-51.0); %Monocytes 9.0 % (0.0-10.0); %Neutrophils 82.5 % (42.0-75.0); Hematocrit 40.4 % (36.0-47.0); Hemoglobin 12.9 g/dL (12.0-16.0); Mean Corpuscular Hemoglobin 30.4 pg (27.0-31.0); Mean Corpuscular Volume 95.3 fL (78.0-98.0); Platelet Count 78 10x3/uL (130-400); Red Blood Cell (RBC) Count 4.24 mill/uL (4.20-5.40); White Blood Cell (WBC) Count 15.35 10x3/uL (4.8-10.8)
[2024-12-10 07:21] LABS: Vancomycin, Random 17.1 ug/mL (See Comment)
[2024-12-10 07:33] LABS: ALT (SGPT) 36 U/L (Less than 34); AST (SGOT) 31 U/L (11-34); Albumin 4.0 g/dL (3.1-4.5); Alkaline Phosphatase 173 U/L (40-110); Anion Gap 18 mmol/L (10-20); BUN (Urea Nitrogen) 20 mg/dL (9.8-20.1); Bilirubin, Total 0.8 mg/dL (0.3-1.2); Calc. Creatinine Clearance 59 mL/min (70-130); Calcium 8.7 mg/dL (7.8-10.44); Carbon Dioxide 25 mmol/L (23-31); Chloride 114 mmol/L (98-107); Globulin 2.5 g/dL (2.4-3.5); Glucose 125 mg/dL (83-110); Potassium 3.4 mmol/L (3.5-5.1); Sodium 154 mmol/L (136-145)
[2024-12-10] MEDS ORDERED: Potassium Bicarbonate/Cit Ac 20 MEQ TAB PO SCH (11:15)
[2024-12-10] MEDS: Furosemide 40 MG (4 mL) VIAL SLOW IVP SCH (12:11)
[2024-12-10] MEDS: Potassium Chloride 20 MEQ in Premix 1 BAG IVPB SCH (12:47)
[2024-12-10 14:52] LABS: Anion Gap 22 mmol/L (10-20); BUN (Urea Nitrogen) 20 mg/dL (9.8-20.1); Calc. Creatinine Clearance 60 mL/min (70-130); Calcium 8.7 mg/dL (7.8-10.44); Carbon Dioxide 25 mmol/L (23-31); Chloride 111 mmol/L (98-107); Glucose 128 mg/dL (83-110); Potassium 3.5 mmol/L (3.5-5.1); Sodium 154 mmol/L (136-145)
[2024-12-11 09:20] LABS: ALT (SGPT) 27 U/L (Less than 34); AST (SGOT) 22 U/L (11-34); Albumin 3.4 g/dL (3.1-4.5); Alkaline Phosphatase 133 U/L (40-110); Anion Gap 15 mmol/L (10-20); BUN (Urea Nitrogen) 26 mg/dL (9.8-20.1); Bilirubin, Total 0.5 mg/dL (0.3-1.2); Calc. Creatinine Clearance 54 mL/min (70-130); Calcium 8.6 mg/dL (7.8-10.44); Carbon Dioxide 27 mmol/L (23-31); Chloride 111 mmol/L (98-107); Globulin 2.9 g/dL (2.4-3.5); Glucose 124 mg/dL (83-110); Potassium 3.7 mmol/L (3.5-5.1); Sodium 149 mmol/L (136-145)
[2024-12-11 09:45] LABS: #Basophils 0.07 10x3/uL (0.0-0.2); #Eosinophils Less than 0.03 10x3/uL (0.0-0.7); #Monocytes 2.21 10x3/uL (0.11-0.59); #Neutrophils 14.67 10x3/uL (1.40-6.50); %Basophils 0.4 % (0.0-1.0); %Eosinophils 0.0 % (0.0-10.0); %Lymphocytes 8.7 % (21.0-51.0); %Monocytes 11.5 % (0.0-10.0); %Neutrophils 76.5 % (42.0-75.0); Hematocrit 38.9 % (36.0-47.0); Hemoglobin 12.0 g/dL (12.0-16.0); Mean Corpuscular Hemoglobin 30.2 pg (27.0-31.0); Mean Corpuscular Volume 98.0 fL (78.0-98.0); Platelet Count 110 10x3/uL (130-400); Red Blood Cell (RBC) Count 3.97 mill/uL (4.20-5.40); White Blood Cell (WBC) Count 19.17 10x3/uL (4.8-10.8)
[2024-12-11 10:45] LABS: Anisocytosis SLIGHT = 6-15 cells HPF (0-5); Burr Cells SLIGHT = 2-5 cells HPF (0-1); Platelet Adequacy Comment Platelets Decreased; Polychromasia SLIGHT = 2-3 cells HPF (0-2); Schistocytes SLIGHT = 2-5 cells HPF (0-1)
[2024-12-11 11:09] LABS: Actual Bicarbonate (HCO3a) 30.2 mEq/L (22-28); Base Excess (BEa) -0.2 mEq/L (-2.0 to +3.0); Calcium, Ionized (arterial) 1.27 mmol/L (1.12-1.30); Hematocrit-ABG 35 % (36.0-47.0); Hemoglobin (Hb) 11.8 g/dL (12.0-16.0); Potassium - ABG Lab 3.60 mmol/L (3.70-5.30)
[2024-12-11 11:12] LABS: ALV-art Gradient 92.330 mmHg (0-20); CO2 Tension 84.6 mmHg (35.0-45.0); O2 Tension (PaO2), arterial 58.6 mmHg (> 70.0); Puncture Site Right Radial artery; pH, Arterial 7.170 (7.35-7.45)
[2024-12-11 12:45] VITALS: BP 106/71; TEMP 97.7
== END 2024-12-11 14:01 | disposition still patient (30) | DRG 871 ==
LOC: SUATTDRO 08:56 → ERS 08:56 → CCU 12:51 → T4-B 12-07 13:44
PROVIDERS: ADMIT Internal Medicine; ATTEND Internal Medicine
PROC: 30233J1 Transfusion of Nonautologous Serum Albumin into Peripheral Vein, Percutaneous Approach (ICD-10-PCS; principal; 2024-12-06)
PROC: 3E03329 Introduction of Other Anti-infective into Peripheral Vein, Percutaneous Approach (ICD-10-PCS; principal; 2024-12-06)
PROC: 30233N1 Transfusion of Nonautologous Red Blood Cells into Peripheral Vein, Percutaneous Approach (ICD-10-PCS; principal; 2024-12-06)
PROC: 3E033XZ Introduction of Vasopressor into Peripheral Vein, Percutaneous Approach (ICD-10-PCS; principal; 2024-12-06)
DX: A41.59 Other Gram-negative sepsis (principal); G93.41 Metabolic encephalopathy; J18.9 Pneumonia, unspecified organism; R65.21 Severe sepsis with septic shock; J96.21 Acute and chronic respiratory failure with hypoxia; I50.33 Acute on chronic diastolic (congestive) heart failure; I13.0 Hypertensive heart and chronic kidney disease with heart failure and stage 1 through stage 4 chronic kidney disease, or unspecified chronic kidney disease; N17.9 Acute kidney failure, unspecified; D61.818 Other pancytopenia; E87.20 Acidosis, unspecified; E87.1 Hypo-osmolality and hyponatremia; N10 Acute pyelonephritis; E87.0 Hyperosmolality and hypernatremia; Z51.5 Encounter for palliative care; N18.30 Chronic kidney disease, stage 3 unspecified; I25.10 Atherosclerotic heart disease of native coronary artery without angina pectoris; Z95.5 Presence of coronary angioplasty implant and graft; J44.9 Chronic obstructive pulmonary disease, unspecified; E78.5 Hyperlipidemia, unspecified; Z88.8 Allergy status to other drugs, medicaments and biological substances; K52.9 Noninfective gastroenteritis and colitis, unspecified; E86.0 Dehydration; E11.649 Type 2 diabetes mellitus with hypoglycemia without coma; D63.1 Anemia in chronic kidney disease; E03.9 Hypothyroidism, unspecified; E87.8 Other disorders of electrolyte and fluid balance, not elsewhere classified; Z79.899 Other long term (current) drug therapy
CPT/HCPCS: 36415; 36416; 36430; 36600; 51702; 71045; 74176; 76705; 78226; 80053; 80202; 81001; 82274; 82310; 82533; 82728; 82805; 83036; 83540; 83550; 83605; 83735; 83880; 84100; 84145; 84443; 85025; 86141; 86850; 86900; 86901; 87040; 87077; 87086; 87149; 87324; 87449; 87505; 93005; 93010; 94640; 94760; 96365; 96367; 96375; A9537; J0613; J0692; J0696; J1940; J2270; J2405; J2470; J2916; J3372; J3373; J3475; J3480; J7050; J7070; J7620; J7999; P9016; P9047

== ENCOUNTER 2024-12-11 14:20 | Inpatient (IN) | payer OTHER ==
[2024-12-11] MEDS ORDERED: Bisacodyl 10 MG SUPP PR PRN (14:43)
[2024-12-11] MEDS ORDERED: Ondansetron PF 4 MG/2 ML Vial IVP PRN (14:45)
[2024-12-11] MEDS ORDERED: Scopolamine 1 mg/72 hour Patch TOP PRN (14:45)
[2024-12-11] MEDS ORDERED: diphenhydrAMINE 50 MG/ML VIAL IVP PRN (14:45)
[2024-12-11] MEDS: Glycopyrrolate 0.4 MG/ 2 ML VIAL SLOW IVP PRN (15:11)
== END 2024-12-11 15:32 | disposition expired | DRG 951 ==
LOC: T4-B 14:20
PROVIDERS: ADMIT Family Medicine; ATTEND Family Medicine
DX: Z51.5 Encounter for palliative care (principal); A41.9 Sepsis, unspecified organism; R65.21 Severe sepsis with septic shock; I50.33 Acute on chronic diastolic (congestive) heart failure; J96.01 Acute respiratory failure with hypoxia; J18.9 Pneumonia, unspecified organism; J81.1 Chronic pulmonary edema; I13.0 Hypertensive heart and chronic kidney disease with heart failure and stage 1 through stage 4 chronic kidney disease, or unspecified chronic kidney disease; N12 Tubulo-interstitial nephritis, not specified as acute or chronic; D61.818 Other pancytopenia; E87.20 Acidosis, unspecified; E87.1 Hypo-osmolality and hyponatremia; N17.9 Acute kidney failure, unspecified; Z66 Do not resuscitate; K52.9 Noninfective gastroenteritis and colitis, unspecified; E86.0 Dehydration; J44.9 Chronic obstructive pulmonary disease, unspecified; N18.30 Chronic kidney disease, stage 3 unspecified; D63.1 Anemia in chronic kidney disease; E78.5 Hyperlipidemia, unspecified; I25.10 Atherosclerotic heart disease of native coronary artery without angina pectoris; Z95.1 Presence of aortocoronary bypass graft; Z95.2 Presence of prosthetic heart valve; Z91.018 Allergy to other foods
CPT/HCPCS: 93005; 93010; J2060; J2270